=== PATIENT | male | born 1955 | race Caucasian/White ===

== ENCOUNTER 2018-12-22 17:14 | Inpatient (IN) | payer OTHER ==
[~2018-12-22] VITALS: Ht 167.6 cm; Wt 86.2 kg
[~2018-12-22 17:14] MED LIST: ASPI-903 PO; ATOR-2 PO; DONE5TAB7 PO; ETOMIDATE 20 MG INJ ONE; METO-429 PO; SUCCINYLCHOLINE CHLORIDE 100 MG/5 ML SYG IV ONE
--- NOTE | 2018-12-22 17:29 | ERD ---
ER Documentation Chief Complaint Chief Complaint pt c/o grimes and became unresponsive en route HPI This is a 63-year-old male with an unknown past medical history. The patient was at his friend's house when he complained of a sudden onset of a severe headache. He said he was not feeling well and had an episode of nonbloody nonbilious emesis. The headache worsened. The headache was diffuse. He denied any head trauma. His friend phone 911 as he stated the patient became very diaphoretic and the headache continued to worsen. When EMS arrived they stated the patient was grabbing his head. They began to transfer the patient to [facility]. The patient continued to complain of a headache. When EMS arrived to the parking lot at [facility] the patient had now developed pinpoint pupils. He became unresponsive with snoring respirations. They had performed an Accu-Chek which was 144. The patient had denied illicit drug use or ethanol use. The patient just returned from a trip to [facility] 48 hours prior to arrival. His friend did state he knows the patient had a coronary artery bypass surgery roughly 1 year ago and takes aspirin on a daily basis but does not know any of his other past history or medications ROS All systems reviewed and are negative except as per history of present illness. Medications Home Meds Unable to Obtain Active Prescriptions or Reported Meds Allergies Allergies: Coded Allergies: Unknown: Unable to obtain (Unverified , 12/22/18) Physical Exam Vitals Vital Signs Date Temp Pulse Resp B/P (MAP) Pulse Ox O2 O2 Flow FiO2 Time Delivery Rate 12/22/18 70 16 139/97 100 Mechanical 17:54 (111) Ventilator 12/22/18 65 28 100 100 17:46 12/22/18 73 18 235/125 98 17:20 (161) Physical Exam Constitutional:Well-developed. Well-nourished. HEENT:Normocephalic. Atraumatic.Pupils were pinpoint. Moist mucous membranes.No tonsillar exudates. Ears versus dentures that appear to be in the upper teeth that were not able to be removed. Pooling of secretions within the oropharynx Neck: No nuchal rigidity. No lymphadenopathy. No posterior cervical spine tenderness or step-offs. Bilateral JVD with no neck or facial swelling. Respiratory: Snoring respirations with symmetrical breath sounds heard b ilaterally. No wheezing no rhonchi no rales. Cardiovascular: Regular rate regular rhythm.No murmurs. No rubs were appreciated.S1, S2 normal. Distal pulses are palpable 2+ bilaterally. Midsternal scar from previous coronary bypass graft. GI: Abdomen was soft. Nontender. Non Distended. No pulsatile abdominal masses or bruits. No rebound. No guarding. Bowel sounds were present and normal. Muscle skeletal: Patient had no active or passive movement of his upper or lower extremities with flaccid paralysis Skin: Diaphoresis. No petechia, no purpura. No lesions on the palms or the soles of the feet. No maculopapular rash. NEURO: Patient did not withdraw to pain. Patient did not open eyes sponta neously. No doll's eyes present. GCS 3 Result Diagram: 12/22/18 1730 12/22/18 1730 Results 24 hrs Laboratory Tests Test 12/22/18 17:18 12/22/18 17:30 12/22/18 17:55 Bedside Glucose 144 mg/dL White Blood Count 6.1 10^3/ul Red Blood Count 5.53 10^6/ul Hemoglobin 13.9 g/dl Hematocrit 45.3 % Mean Corpuscular Volume 81.9 fl Mean Corpuscular Hemoglobin 25.1 pg Mean Corpuscular 30.7 g/dl Hemoglobin Concent Red Cell Distribution Width 16.4 % Platelet Count 168 10^3/UL Mean Platelet Volume 10.2 fl Immature Granulocytes % 0.300 % Neutrophils % 61.7 % Lymphocytes % 26.9 % Monocytes % 7.8 % Eosinophils % 2.8 % Basophils % 0.5 % Nucleated Red Blood Cells % 0.0 /100WBC Immature Granulocytes # 0.020 10^3/ul Neutrophils # 3.7 10^3/ul Lymphocytes # 1.6 10^3/ul Monocytes # 0.5 10^3/ul Eosinophils # 0.2 10^3/ul Basophils # 0.0 10^3/ul Nucleated Red Blood Cells # 0.0 10^3/ul Prothrombin Time 12.6 Sec Prothrombin Time Ratio 1.0 INR International 0.93 Normalized Ratio Activated Partial Thromboplast 25.2 Sec Time Sodium Level 141 mmol/L Potassium Level 3.4 mmol/L Chloride Level 105 mmol/L Carbon Dioxide Level 26 mmol/L Anion Gap 10 Blood Urea Nitrogen 15 mg/dl Creatinine 0.98 mg/dl Est Glomerular Filtrat > 60 mL/min Rate mL/min Glucose Level 159 mg/dl Hemoglobin A1c 5.4 % Calcium Level 9.6 mg/dl Total Bilirubin 0.7 mg/dl Direct Bilirubin 0.00 mg/dl Indirect Bilirubin 0.7 mg/dl Aspartate Amino 42 IU/L Transf (AST/SGOT) Alanine 30 IU/L Aminotransferase (ALT/SGPT) Alkaline Phosphatase 94 IU/L Creatine Kinase 372 IU/L Creatine Kinase Index Pending Creatinine Kinase MB (Mass) Pending Troponin I Pending Total Protein 8.5 g/dl Albumin 4.3 g/dl Globulin 4.20 g/dl Albumin/Globulin Ratio 1.02 Triglycerides Level 139 mg/dl Cholesterol Level 146 mg/dl LDL Cholesterol, Calculated 72 mg/dl HDL Cholesterol 46 mg/dl Cholesterol/HDL Ratio 3.1 RATIO Salicylates Level < 1.0 mg/dl Acetaminophen Level < 10.0 ug/ml Ethyl Alcohol Level < 10.0 mg/dl Urine Color YELLOW Urine Clarity CLEAR Urine pH 8.0 Urine Specific [place] 1.010 Urine Ketones NEGATIVE mg/dL Urine Nitrite NEGATIVE mg/dL Urine Bilirubin NEGATIVE mg/dL Urine Urobilinogen NEGATIVE mg/dL Urine Leukocyte Esterase NEGATIVE Johanna/ul Urine Microscopic RBC 18 /HPF Urine Microscopic WBC 1 /HPF Urine Mucus FEW /HPF Urine Hemoglobin 1+ mg/dL Urine Glucose NEGATIVE mg/dL Urine Total Protein 2+ mg/dl Current Medications Medications Dose Sig/Nicole Start Time Status Last (Trade) Ordered Route PRN Stop Time Admin Dose Reason Admin Labetalol 20 mg Q20M PRN 12/22/18 12/22/18 HCl IV ELEVATED 17:30 17:44 (Labetalol) BLOOD PRESSURE Etomidate 20 mg ONCE ONCE 12/22/18 DC 12/22/18 (Amidate) IV 17:30 17:37 12/22/18 17:31 100 mg ONCE ONCE 12/22/18 DC 12/22/18 Succinylcholi IV 17:30 17:37 ne Chloride 12/22/18 17:31 (Anectine Syringe) Naloxone 2 mg ONCE ONCE 12/22/18 DC 12/22/18 HCl IV 17:30 17:37 (Narcan) 12/22/18 17:31 Nicardipine 200 ml @ ONCE STAT 12/22/18 12/22/18 HCl 50 mls/hr IV 17:32 17:47 12/22/18 21:31 Sodium 100 ml @ ud STK-MED 12/22/18 DC Chloride ONCE .ROUTE 18:02 12/22/18 18:03 Iohexol 100 ml @ ud STK-MED 12/22/18 DC ONCE .ROUTE 18:02 12/22/18 18:03 Procedures/MDM The patient presented to the emergency department with an acute single headache that presented within hours of onset my differential diagnosis included but was not limited to meningitis, SAH, intracerebral hemorrhage, hypertensive encephalopathy, cranial artery dissection, cerebral venous sinus thrombosis, traumatic, acute sinusitis. The patient has no ocular symptoms to suggest temp oral neuritis, acute narrow-angle glaucoma or pituitary apoplexy. The patient did not appear to have a toxic or metabolic etiology such as fever, hypoglycemia, high-altitude disease or carbon monoxide poisoning. When patient arrived to the emergency department he was no longer protecting his airway. The patient appeared to be expensing hypertensive emergency and immediately was placed on licensed retail supervisor continuous pulse oximetry and IV access had been established by nursing staff. The patient was clenching his teeth and therefore required RSI intervention to secure his airway. He was giv en 20 mg of etomidate followed by 100 mg of succinylcholine. A 7.50 endotracheal tube was seen in past going through the cords by myself. The tube was secured at the lip line of 23 cm with equal symmetrical breath sounds are bilaterally, condensation seen within the tube in good capnometry change x6. A code stroke was called as I was concerned with an intracerebral hemorrhage due to his physical exam findings. He also had pinpoint pupils given Narcan when he initially arrived with no changes in his clinical condition therefore unlikely the result of an opiate overdose intoxication. The patient's blood glucose was within normal limits. CT scan of the head was immediately obtained and the patient had a large right cerebellar hemorrhage that extended into the ventricles. The posterior fossa had a 4.6 x 3.2 cm hemorrhage. There was a total volume of 48 cc that was causing occlusion of the fourth ventricle with extension into the brainstem inferiorly. There is also extension of the hemorrhage into the third ventricle. There is no midline shift or acute extra- articular collection that was noted. The patient was immediately started on labetalol and Cardene to improve his blood pressure as when he arrived his blood pressure was 235/135 mmHg. The patient's neighbor and friend who called 911 was present at the hospital and family has been called. Consult was placed to the neurosurgeon Dr. Bryan. 12 Lead EKG tracing ordered and reviewed by myself showed: Normal sinus rhythm of 73 bpm and no arrhythmia. NE interval normal. QRS duration widened at 122 ms with left ventricular hypertrophy. No ST segment elevation No ST segment depression. No changes consistent with acute ischemia. Chest radiograph ordered reviewed by myself the radiologist indicate the followin. Endotracheal tube in satisfactory position. 2. Atherosclerosis. 3. Previous median sternotomy. 4. Otherwise unremarkable chest radiograph. The patient's son has now arrived. He indicates that the patient's and daughter in [place] they have been there visiting family. He is unaware of the patient's medications but is going to try and contact the in order to figure out if the patient takes any other anticoagulants. I have ordered a platelet function assay and a type and screen. Dr. Bryan has been consulted and will be phoning the OR to take the patient for immediate surgical decompression. Critical Care: Time: 95 minutes Treatments/Evaluations: Close monitoring and treatment of unstable vital signs, cardiorespiratory, and neurologic status, while maintaining tight balance of fluid, respiratory, and cardiac interventions. Time does not include performing any of the above billable procedures. Departure Diagnosis: Primary Impression: Hypertensive emergency without congestive heart failure Additional Impression: Nontraumatic cerebellar hemorrhage Laterality: right Qualified Codes: I61.4 - Nontraumatic intracerebral hemorrhage in cerebellum Condition: Serious WAQAS MOODY MD Dec 22, 2018 17:29
[2018-12-22] MEDS ORDERED: NALOXONE 2 MG SYG IV ONE (17:30)
[2018-12-22] MEDS ORDERED: LABETALOL HCL 20MG INJ IV PRN (17:30)
[2018-12-22] MEDS ORDERED: SUCCINYLCHOLINE CHLORIDE 100 MG/5 ML SYG IV ONE (17:30)
[2018-12-22] MEDS ORDERED: ETOMIDATE 20 MG INJ IV ONE (17:30)
[2018-12-22] MEDS ORDERED: niCARdipine-NS 0.1MG/ML DRIP 200 ML IV STA (17:32)
[2018-12-22] MEDS ORDERED: IOHEXOL 100 ML ONE (18:02)
[2018-12-22] MEDS ORDERED: SOD CHLORIDE 0.9% 100 ML ONE (18:02)
[2018-12-22] MEDS ORDERED: GELATIN SIZE 100 SPONGE ONE (18:50)
[2018-12-22] MEDS ORDERED: THROMBIN 5000 UNIT (RECOTHROM) VIAL ONE ×2 (18:50→21:30)
[2018-12-22] MEDS ORDERED: LIDOCAINE 1%/EPI 30 ML INJ ONE (18:51)
[2018-12-22] MEDS ORDERED: BACITRACIN/POLYMYXIN 28.35 GM OINT TOP ONE (18:51)
[2018-12-22] MEDS ORDERED: EPHEDrine 25 MG/5 ML SYG ONE (19:00)
[2018-12-22] MEDS ORDERED: SOD CHLORIDE 0.9% 1,000 ML IV STA (19:09)
[2018-12-22] MEDS ORDERED: ROCURONIUM 50 MG INJ ONE (19:50)
[2018-12-22] MEDS ORDERED: LIDOCAINE 1%/EPI (1:100,000) (MDV) 20 ML INJ ONE (20:14)
[2018-12-22] MEDS ORDERED: GELATIN SIZE 100 SPONGE TOP ONE (20:14)
[2018-12-22] MEDS ORDERED: BACITRACIN 50000 UNITS INJ IRR ONE (20:14)
--- NOTE | 2018-12-22 20:21 | PREAC ---
Date/Time of Note Date/Time of Note DATE: 12/22/18 TIME: 20:18 Anesthesia Eval and Record Evaluation Time Pre-Procedure Interview DATE: 12/22/18 TIME: 18:55 Age 63 Sex male NPO: 8 hrs Preoperative diagnosis INTRACRANIAL BLEED Planned procedure CRANIOTOMY, EVACUATION OF HEMATOMA, VENTRICULOSTOMY Past Medical History Past Medical History: Includes Cardio: HTN, CAD Surgery & Anesthesia Issues No known issue Meds Anticoagulation: No Beta Antelmo within 24 hr: Yes Unable to Obtain Active Prescriptions or Reported Meds Current Medications Labetalol HCl (Labetalol) 20 mg Q20M PRN IV ELEVATED BLOOD PRESSURE Last administered on 12/22/18at 17:44; Admin Dose 20 MG; Start 12/22/18 at 17:30 Nicardipine HCl 200 ml @ 50 mls/hr ONCE STAT IV Last administered on 12/22/18at 17:47; Admin Dose 50 MLS/HR; Start 12/22/18 at 17:32; Stop 12/22/18 at 21:31 Meds reviewed: Yes Allergies Coded Allergies: Unknown: Unable to obtain (Unverified , 12/22/18) Allergies Reviewed: Yes Labs/Studies Labs Reviewed: Reviewed by anesthesiologist Result Diagram: 12/22/18 1730 12/22/18 1730 Laboratory Tests 12/22/18 17:30 Blood Bank Test 12/22/18 18:04 Antibody Screen NEGATIVE Blood Type A POSITIVE test: N/A Studies: ECG, CXR Pre-procedure Exam Last vitals Vital Signs Date Temp Pulse Resp B/P (MAP) Pulse Ox O2 O2 Flow FiO2 Time Delivery Rate 12/22/18 47 22 63/45 (51) 100 Mechanical 19:15 Ventilator 12/22/18 100 17:46 Airway: Adequate mouth opening, Adequate thyromental dist Mallampati: Mallampati II Teeth: Normal Lung: Normal Heart: Normal ASA Physical Status ASA physical status: 4 Emergency: E Planned Anesthetic General/MAC: ETT Planned Pain Management Parenteral pain med Pre-operative Attestations Prior to commencing anesthesia and surgery, the patient was re-evaluated, there was verification of: *The patient's identity *The results of appropriate recent lab work and preoperative vital signs *The above evaluation not changing prior to induction *Anesthetic plan, risk benefits, alternative and complications discussed with patient/family; questions answered; patient/family understands, accepts and wishes to proceed. MALLORY HOLT Dec 22, 2018 20:21
[2018-12-22] MEDS ORDERED: HYDROGEN PEROXIDE 118 ML ONE (21:41)
[2018-12-22] MEDS ORDERED: ONDANSETRON 4 MG INJ IV PRN (23:00)
[2018-12-22] MEDS ORDERED: ALBUTEROL HFA 8 GM INHALER INH PRN (23:00)
[2018-12-22] MEDS ORDERED: PROPOFOL 100 ML IV SCH (23:00)
[2018-12-22] MEDS ORDERED: IPRATROPIUM (HFA) 12.9 GM INHALER INH PRN (23:00)
--- NOTE | 2018-12-22 23:11 | CONS ---
DATE OF ADMISSION: 12/22/2018 DATE OF CONSULTATION: 12/22/2018 HISTORY OF PRESENT ILLNESS: The patient is a 63-year-old male with a history of coronary artery dise ase, status post CABG, who was brought to the ER by paramedics. When he was at a friend's house he c omplained of the worst headache of his life. The patient's friend called 911. The patient came to [facility] ER at which point he became less responsive and was emergently intubated. The patient apparently denied any illicit drug use or alcohol use. REVIEW OF SYSTEMS: Unable to obtain secondary to neurologic condition. PAST MEDICAL HISTORY: Limited, obtained from family but has history of coronary artery disease and h ypertension and hypercholesterolemia. SOCIAL HISTORY: Denies alcohol and drug abuse. FAMILY HISTORY: No reported history of inherited bleeding disorders. PHYSICAL EXAMINATION: VITAL SIGNS: The patient's pulse 73, respirations 18, blood pressure initially was 135/125 but had b een brought down with nicardipine at 98/40. The patient was also bradycardic at 42. The patient has been intubated with succinylcholine and etomidate though it has been almost hour since the patient h ad been treated when he was examined. HEAD AND NECK: Patient is normocephalic, atraumatic. He is intubated. CARDIAC: Sinus bradycardia. CHEST: Clear to auscultation. The patient has a midline thoracotomy scar. ABDOMEN: Nontender, nondistended, soft. EXTREMITIES: No clubbing, cyanosis, or edema. NEUROLOGIC: Patient's eyes are closed. He is unresponsive, does not open his eyes to any noxious st imuli or voice. His pupils are pinpoint. He does not appear to have a corneal or oculocephalic refl ex. He may have a gag. The patient withdraws the lower extremities and has positive Babinski's. Up per extremities, I do not note movement with noxious stimuli. LABORATORY DATA: The patient's white count 6.1, hemoglobin 13.9, platelets 168. His glucose was 144 . Coags, I spoke to the lab, and they reported to be within normal limits. REVIEW OF RADIOGRAPHIC RESULTS: The patient had a CT scan of the brain; I reviewed this study as wel l as radiologist's result. The radiologist states there is a 4.6 x 3.2 posterior fossa right cerebel lar hemorrhage measuring 48 mL, this causes occlusion of fourth ventricle; there may be extension of the brainstem inferiorly, per the radiologist, though I believe this may simply be compression. Ther e is also extension of the hemorrhage into the ventricles and frontal horns. There is no midline trino ft or acute extraaxial collections. The patient also had a CT angiogram; I reviewed the study, did n ot see an evidence of AVM or aneurysm and I was told by Dr. Forde the radiologist had stated that there was no clear vascular abnormality. ASSESSMENT AND PLAN: A 63-year-old male with right cerebellar hematoma and brainstem compression hyd rocephalus. I discussed patient's signs, symptoms, physical examination, and radiographic findings w ith the patient's family. The patient has 2 sons were present; however, the patient's is [place]. I explained the nature of the patient's condition. I explained the patient has a very bad blee d, he likely has neurologic deficits that may or may not be reversible, intervention by craniectomy a nd ventriculostomy may give the patient the best chance to allow for recovery, though there is no gua rantee the patient will necessary recover and will still likely have significant neurologic deficits, though he may find to have acceptable quality of life. I also explained the patient has a greater c blessing of mortality if he does not have surgery than if he has surgery. I explained there is no guara ntee the surgery will benefit the patient, given the patient's condition already. I discussed the lo ngterm recovery, including potential tracheostomy, gastrostomy and retirement care. The patient has on ly been taking baby aspirin, and he will get platelets if necessary. Given the patient's neurologic condition, I expressed the emergent nature of this issue if the patient is to have some benefit from surgical intervention. The patient's family is currently making a decision regarding surgical treatm ent. The patient will likely go the OR for suboccipital craniectomy and evacuation of hematoma. Dictated By: JOVANI MCGARRY MD, LG/ROQUE Conf#: [id number] DID#: [id number] CC: TRISTON HANNA MD;*EndCC*
[2018-12-22] MEDS ORDERED: LABETALOL HCL 20MG INJ ONE (23:48)
[2018-12-22] MEDS ORDERED: FENTAnyl 50 MCG/ML VIAL ONE (23:48)
[2018-12-22] MEDS ORDERED: CEFAZOLIN 1 GM INJ ONE (23:49)
[2018-12-23] VITALS (105 sets, daily range): BP systolic 109–178; BP diastolic 54–99; PULSE 48–95; RESP 16–28; Ht 167.6 cm; Wt 86.2 kg
--- NOTE | 2018-12-23 00:07 | OPR ---
Date/Time of Note Date/Time of Note DATE: 12/23/18 TIME: 00:03 Operative Report Preoperative Diagnosis 1. right cerebellar hematoma Postoperative Diagnosis 1. right cerebellar hematoma Operation/Procedure Performed 1. suboccipital craniectomy for evacuation of hematoma. 2. <5 cm craniectomy 3. microscope. 4. right frontal ventriculostomy. Surgeon see signature line Deal Architect none Anesthesia Type: general Anesthesiologist: MALLORY HOLT Estimated Blood Loss: 150 - 200 ml's Transfusion none Specimen hematoma Grafts/Implants Duragen, Duralsel, titanium mesh Complications none Pt Condition Post Procedure: stable Disposition: PACU Indications hematoma Procedure Description see dictation JOVANI MCGARRY MD Dec 23, 2018 00:07
--- NOTE | 2018-12-23 00:10 | PAC ---
Date/Time of Note Date/Time of Note DATE: 12/23/18 TIME: 00:09 Post-Anesthesia Notes Post-Anesthesia Note Last documented vital signs Vital Signs Date Temp Pulse Resp B/P (MAP) Pulse Ox O2 O2 Flow FiO2 Time Delivery Rate 12/22/18 98 67 16 156/89 100 Mechanical 2400 Ventilator 12/22/18 100 17:46 Activity: WNL Respiratory function: WNL Cardiovascular function: WNL Mental status: Baseline Pain reasonably controlled: Yes Hydration appropriate: Yes Nausea/Vomiting absent: Yes Comments REMAINS INTUBATED POST OP, MALLORY RAY Dec 23, 2018 00:10
[2018-12-23] MEDS ORDERED: morphine 10 MG INJ IV PRN (00:30)
[2018-12-23] MEDS ORDERED: hydrALAzine 20 MG INJ IV PRN (00:30)
[2018-12-23] MEDS ORDERED: MEPERIDINE 25 MG INJ IV PRN (00:30)
[2018-12-23] MEDS ORDERED: morphine 2 MG INJ IV PRN ×3 (00:30→09:30)
[2018-12-23] MEDS ORDERED: EPHEDrine 25 MG/5 ML SYG IV PRN (00:30)
[2018-12-23] MEDS ORDERED: LABETALOL HCL 20MG INJ IV PRN (00:30)
[2018-12-23] MEDS ORDERED: DIPHENHYDRAMINE 50 MG INJ IV PRN ×2 (00:30)
[2018-12-23] MEDS ORDERED: MIDAZOLAM 1 MG/ML 2 ML INJ IV PRN (00:30)
[2018-12-23] MEDS: niCARdipine-NS 0.1MG/ML DRIP 200 ML IV SCH ×9 (00:37→23:25)
[2018-12-23] MEDS: CEFAZOLIN 2 GM/50 ML (PMX) 50 ML IVPB SCH ×3 (01:48→16:23)
[2018-12-23] MEDS: PANTOPRAZOLE 40 MG INJ IV SCH (06:22)
--- NOTE | 2018-12-23 06:34 | HP ---
Date/Time of Note Date/Time of Note DATE: 12/23/18 TIME: 06:23 Assessment/Plan VTE Prophylaxis Pharmacological prophylaxis: heparin Lines/Catheters IV Catheter Type (from Nrsg): Peripheral IV Urinary Cath still in place: Yes Reason Cath still needed: terminal illness/intractable pain Assessment/Plan Assessment/Plan 1. Large right cerebellar hemorrhage: status post craniectomy with evacuation of hematoma and right frontal ventriculostomy placement -Tight BP control, with the parameters per neurosurgery 2. Hypertensive emergency: BP better controlled -Patient presented with a blood pressure of 235/125 -See #1 3. Vent dependent respiratory failure: Secondary to #1 -Continue vent support -Pulmonary to manage 4. History of CAD with CABG -Hold aspirin -Consider cardiology consult to follow along 5. ?Dyslipidemia: Hold statin for now 6. ?Dementia: Hold the donepezil for now Result Diagram: 12/23/18 0428 12/23/18 0428 Results 24hrs Laboratory Tests Test 12/22/18 17:18 12/22/18 17:30 12/22/18 17:55 12/22/18 18:04 Bedside Glucose 144 White Blood Count 6.1 Red Blood Count 5.53 Hemoglobin 13.9 L Hematocrit 45.3 Mean Corpuscular 81.9 L Volume Mean Corpuscular 25.1 L Hemoglobin Mean Corpuscular 30.7 L Hemoglobin Concen t Red Cell 16.4 H Distribution Width Platelet Count 168 Mean Platelet 10.2 Volume Immature 0.300 Granulocytes % Neutrophils % 61.7 Lymphocytes % 26.9 Monocytes % 7.8 Eosinophils % 2.8 Basophils % 0.5 Nucleated Red 0.0 Blood Cells % Immature 0.020 Granulocytes # Neutrophils # 3.7 Lymphocytes # 1.6 Monocytes # 0.5 Eosinophils # 0.2 Basophils # 0.0 Nucleated Red 0.0 Blood Cells # Prothrombin Time 12.6 Prothrombin Time 1.0 Ratio INR International 0.93 Normalized Ratio Activated 25.2 Partial Thrombopl ast Time Sodium Level 141 Potassium Level 3.4 L Chloride Level 105 Carbon Dioxide 26 Level Anion Gap 10 Blood Urea 15 Nitrogen Creatinine 0.98 Est Glomerular > 60 Filtrat Rate mL/min Glucose Level 159 Hemoglobin A1c 5.4 Calcium Level 9.6 Total Bilirubin 0.7 Direct Bilirubin 0.00 Indirect 0.7 Bilirubin Aspartate Amino 42 Transf (AST/SGOT) Alanine 30 Aminotransferase (ALT/SGPT) Alkaline 94 Phosphatase Creatine Kinase 372 H Creatine Kinase 2.8 Index Creatinine Kinase 10.50 H MB (Mass) Troponin I 0.039 Total Protein 8.5 H Albumin 4.3 Globulin 4.20 H Albumin/Globulin 1.02 Ratio Triglycerides 139 Level Cholesterol Level 146 LDL Cholesterol, 72 Calculated HDL Cholesterol 46 Cholesterol/HDL 3.1 Ratio Salicylates Level < 1.0 L Acetaminophen < 10.0 L Level Ethyl Alcohol < 10.0 H Level Urine Color YELLOW Urine Clarity CLEAR Urine pH 8.0 Urine Specific 1.010 [place] Urine Ketones NEGATIVE Urine Nitrite NEGATIVE Urine Bilirubin NEGATIVE Urine NEGATIVE Urobilinogen Urine Leukocyte NEGATIVE Esterase Urine Microscopic 18 H RBC Urine Microscopic 1 WBC Urine Mucus FEW A Urine Hemoglobin 1+ H Urine Glucose NEGATIVE Urine Total 2+ H Protein Urine Opiates Negative Screen Urine Negative Barbiturates Urine Negative Amphetamines Screen Urine Negative Benzodiazepines Screen Urine Cocaine Negative Screen Urine Negative Cannabinoids Platelet 138 Func Collagen/Epi nephrine Platelet Function Collagen/ADP Test 12/23/18 02:00 12/23/18 04:28 Blood Gas Blood arterial Specimen Source Arterial Blood 12/23/2018 2:15:2 Date Drawn 9 AM Arterial Blood pH 7.380 (Temp corrected) Arterial Blood 43.3 pCO2 (Temp correct) Arterial Blood 168.5 H pO2 (Temp corrected) Arterial Blood 25.0 HCO3 Arterial Blood -0.2 Base Excess Arterial Blood 99.1 H Oxygen Saturation Say Test N/A Arterial Blood A-Line Gas Puncture Site Arterial 0.6 Blood Carboxyhemo globin Arterial Blood 0.2 Methemoglobin Blood Gas A-a O2 139.3 H Differential Oxyhemoglobin 98.3 Percent Blood Gas 37.0 Temperature Blood Gas 16.0 Respiration Rate Blood Gas Actual 20 Respiration Rate Blood Gas VENT - AC Modality FiO2 50.0 Blood Gas Tidal 500.0 Volume Blood Gas Low 5.0 PEEP Setting Blood Gas Kwame AUGUSTE RN Critical Value Read Back Blood Gas KB Notified Whom Blood Gas 12/23/2018 2:29:1 Notified Time 7 AM White Blood Count 9.6 # Red Blood Count 4.80 Hemoglobin 12.2 L Hematocrit 39.9 L Mean Corpuscular 83.1 Volume Mean Corpuscular 25.4 L Hemoglobin Mean Corpuscular 30.6 L Hemoglobin Concen t Red Cell 16.8 H Distribution Width Platelet Count 159 Mean Platelet 10.5 H Volume Immature 0.300 Granulocytes % Neutrophils % 84.4 H Lymphocytes % 8.9 L Monocytes % 6.2 Eosinophils % 0.0 Basophils % 0.2 Nucleated Red 0.0 Blood Cells % Immature 0.030 Granulocytes # Neutrophils # 8.1 H Lymphocytes # 0.9 Monocytes # 0.6 Eosinophils # 0.0 Basophils # 0.0 Nucleated Red 0.0 Blood Cells # Sodium Level 142 Potassium Level 3.6 Chloride Level 104 Carbon Dioxide 28 Level Anion Gap 10 Blood Urea 16 Nitrogen Creatinine 1.01 Est Glomerular > 60 Filtrat Rate mL/min Glucose Level 184 Calcium Level 8.9 Phosphorus Level 4.2 Magnesium Level 1.8 HPI/ROS Admit Date/Time Admit Date/Time Dec 22, 2018 at 23:55 Hx of Present Illness Patient is a 63-year-old male with a history of hypertension, dyslipidemia, CAD with CABG who presented to ER complaining of severe diffuse headache that started while he was at the friend's house. Note that information is gathered from chart review and from the ER physician. When he presented to ER, he became unresponsive requiring intubation. Head CT shows Large right cerebellar hemorrhage extending into the ventricles. Initial blood pressure was 235/125. Patient takes aspirin. Patient was taken to the OR emergently and underwent craniectomy with evacuation of hematoma and right frontal ventriculostomy. PMH/Family/Social Past Medical History Past Surgical Hx: other (see HPI) Family History Significant Family History: no pertinent family hx Social History Alcohol Use: none Smoking Status: Never smoker Drug Use: none Exam Constitutional: No acute distress Head: normocephalic, atraumatic Eyes: EOMI, PERRL Respiratory: no distress Cardiovascular: regular rate and rhythm Gastrointestinal: soft Extremities: normal pulses Medications Current Medications Labetalol HCl (Labetalol) 20 mg Q20M PRN IV ELEVATED BLOOD PRESSURE Last ad ministered on 12/22/18at 17:44; Admin Dose 20 MG; Start 12/22/18 at 17:30 Ondansetron HCl (Zofran Inj) 4 mg Q6H PRN IV NAUSEA AND/OR VOMITING Last administered on 12/23/18at 05:15; Admin Dose 4 MG; Start 12/22/18 at 23:00 Albuterol (Ventolin Hfa) 4 puff Q2H RESP THERAPY PRN INH SHORTNESS OF BREATH; Start 12/22/18 at 23:00 Ipratropium [place] (Atrovent Hfa) 4 puff Q2H RESP THERAPY PRN INH SHORTNESS OF BREATH; Start 12/22/18 at 23:00 Acetaminophen (Tylenol Supp) 650 mg Q4H PRN IN PAIN LEVEL 1-3 OR FEVER; Start 12/22/18 at 23:00 Pantoprazole (Protonix Iv) 40 mg DAILY@06 IV Last administered on 12/23/18at 06:22; Admin Dose 40 MG; Start 12/23/18 at 06:00 Propofol 100 ml @ 2.387 mls/ hr PER PROTOCOL IV ; Start 12/22/18 at 23:00 Cefazolin Sodium/ Dextrose 50 ml @ 100 mls/hr Q8H IVPB Last administered on 12/23/18at 01:48; Admin Dose 100 MLS/HR; Start 12/23/18 at 00:00; Stop 12/23/18 at 23:59 Diphenhydramine HCl (Benadryl) 25 mg Q6H PRN IV ITCHING; Start 12/23/18 at 00:00 Nicardipine HCl 200 ml @ 50 mls/hr TITRATE IV Last administered on 12/23/18at 05:15; Admin Dose 100 MLS/HR; Start 12/23/18 at 00:30 Coded Allergies: Unknown: Unable to obtain (Unverified , 12/22/18) Social History Smoking Status: Current every day smoker Exam/Review of Systems Vital Signs Vitals Vital Signs Date Temp Pulse Resp B/P (MAP) Pulse Ox O2 O2 Flow FiO2 Time Delivery Rate 12/23/18 88 22 146/76 99 05:15 (99) 12/23/18 40 05:04 12/23/18 Mechanical 05:00 Ventilator 12/23/18 96.9 04:00 Intake and Output 12/22/18 12/22/18 12/23/18 1515:00 23:00 07:00 IntakeIntake Total 1802 ml OutputOutput Total 35 ml 1244 ml BalanceBalance -35 ml 558 ml TRISTON BREAUX MD Dec 23, 2018 06:33
--- NOTE | 2018-12-23 11:37 | PN ---
Date/Time of Note Date/Time of Note DATE: 12/23/18 TIME: 11:33 Assessment/Plan Lines/Catheters IV Catheter Type (from Rust): Peripheral IV Chaidez in Place (from Rust): Yes Assessment/Plan Chief Complaint/Hosp Course POD # 1 s/p suboccipital craniotomy for evacuation of hematoma/ EVD. Patient slightly improved neurologically but exam still poor. CT shows improvement but some bleeding into the resection cavity though not compressive. Still significant IVH in 4th and 3rd but EVD draining. Cont. EVD, medical supportive care. D/W family prognosis. repeat CT in tomorrow AM. Subjective 24 Hr Interval Summary Subjective hx not possible: pt non-verbal Exam/Review of Systems Vital Signs Vitals Vital Signs Date Temp Pulse Resp B/P (MAP) Pulse Ox O2 O2 Flow FiO2 Time Delivery Rate 12/23/18 82 22 99 40 11:03 12/23/18 99.0 130/78 Mechanical 08:00 (95) Ventilator Intake and Output 12/22/18 12/22/18 12/23/18 1515:00 23:00 07:00 IntakeIntake Total 1902 ml OutputOutput Total 35 ml 1568 ml BalanceBalance -35 ml 334 ml Exam Head: normocephalic, other (incision C/d/I, EVD in place.) Neurological: other (opens eyes to noxious stimuli. Does not follow commands. no UE movement, Lower extrmeities withdraw) Results Result Diagram: 12/23/18 0428 12/23/18 0428 JOVANI MCGARRY MD Dec 23, 2018 11:37
--- NOTE | 2018-12-23 12:38 | PN ---
Date/Time of Note Date/Time of Note DATE: 12/23/18 TIME: 12:36 Assessment/Plan VTE Prophylaxis SCD applied (from Nsg): Yes Pharmacological prophylaxis: NA/contraindicated Pharm contraindication: low risk/ambulating, bleeding Lines/Catheters IV Catheter Type (from Nrsg): Peripheral IV Assessment/Plan Hospital Course 1. Large right cerebellar hemorrhage: status post craniectomy with evacuation of hematoma and right frontal ventriculostomy placement -Tight BP control, with the parameters per neurosurgery 2. Hypertensive emergency: BP better controlled -Patient presented with a blood pressure of 235/125 -Cardizem drip 3. Vent dependent respiratory failure: Secondary to #1 -Continue vent support -Pulmonary to manage 4. History of CAD with CABG -Hold aspirin -Consider cardiology consult to follow along 5. Dyslipidemia: Hold statin for now 6. History of dementia: Hold the donepezil for now Prophylaxis: SCDs Result Diagram: 12/23/18 0428 12/23/18 0428 Results 24hrs Laboratory Tests Test 12/22/18 17:18 12/22/18 17:30 12/22/18 17:55 12/22/18 18:04 Bedside Glucose 144 White Blood 6.1 Count Red Blood Count 5.53 Hemoglobin 13.9 L Hematocrit 45.3 Mean Corpuscular 81.9 L Volume Mean Corpuscular 25.1 L Hemoglobin Mean Corpuscular 30.7 L Hemoglobin Mitali nt Red Cell 16.4 H Distribution Width Platelet Count 168 Mean Platelet 10.2 Volume Immature 0.300 Granulocytes % Neutrophils % 61.7 Lymphocytes % 26.9 Monocytes % 7.8 Eosinophils % 2.8 Basophils % 0.5 Nucleated Red 0.0 Blood Cells % Immature 0.020 Granulocytes # Neutrophils # 3.7 Lymphocytes # 1.6 Monocytes # 0.5 Eosinophils # 0.2 Basophils # 0.0 Nucleated Red 0.0 Blood Cells # Prothrombin Time 12.6 Prothrombin Time 1.0 Ratio INR 0.93 International Normalized Ratio Activated 25.2 Partial Thrombop last Time Sodium Level 141 Potassium Level 3.4 L Chloride Level 105 Carbon Dioxide 26 Level Anion Gap 10 Blood Urea 15 Nitrogen Creatinine 0.98 Est Glomerular > 60 Filtrat Rate mL/min Glucose Level 159 Hemoglobin A1c 5.4 Calcium Level 9.6 Total Bilirubin 0.7 Direct Bilirubin 0.00 Indirect 0.7 Bilirubin Aspartate Amino 42 Transf (AST/SGOT ) Alanine 30 Aminotransferase (ALT/SGPT) Alkaline 94 Phosphatase Creatine Kinase 372 H Creatine Kinase 2.8 Index Creatinine 10.50 H Kinase MB (Mass) Troponin I 0.039 Total Protein 8.5 H Albumin 4.3 Globulin 4.20 H Albumin/Globulin 1.02 Ratio Triglycerides 139 Level Cholesterol 146 Level LDL Cholesterol, 72 Calculated HDL Cholesterol 46 Cholesterol/HDL 3.1 Ratio Salicylates < 1.0 L Level Acetaminophen < 10.0 L Level Ethyl Alcohol < 10.0 H Level Urine Color YELLOW Urine Clarity CLEAR Urine pH 8.0 Urine Specific 1.010 [place] Urine Ketones NEGATIVE Urine Nitrite NEGATIVE Urine Bilirubin NEGATIVE Urine NEGATIVE Urobilinogen Urine Leukocyte NEGATIVE Esterase Urine 18 H Microscopic RBC Urine 1 Microscopic WBC Urine Mucus FEW A Urine Hemoglobin 1+ H Urine Glucose NEGATIVE Urine Total 2+ H Protein Urine Opiates Negative Screen Urine Negative Barbiturates Urine Negative Amphetamines Screen Urine Negative Benzodiazepines Screen Urine Cocaine Negative Screen Urine Negative Cannabinoids Platelet 138 Func Collagen/Ep inephrine Platelet Function Collagen/ADP Test 12/23/18 02:00 12/23/18 04:28 12/23/18 08:28 Blood Gas Blood arterial Blood arterial Specimen Source Arterial Blood 12/23/2018 2:15: 12/23/2018 8:50: Date Drawn 29 AM 59 AM Arterial Blood 7.380 7.440 pH (Temp corrected) Arterial Blood 43.3 38.0 pCO2 (Temp correct) Arterial Blood 168.5 H 146.3 H pO2 (Temp corrected) Arterial Blood 25.0 25.2 HCO3 Arterial Blood -0.2 1.3 Base Excess Arterial Blood 99.1 H Oxygen Saturatio n Say Test N/A N/A Arterial Blood A-Line A-Line Gas Puncture Site Arterial 0.6 Blood Carboxyhem oglobin Arterial Blood 0.2 Methemoglobin Blood Gas A-a O2 139.3 H 95.2 H Differential Oxyhemoglobin 98.3 Percent Blood Gas 37.0 37.0 Temperature Blood Gas 16.0 18.0 Respiration Rate Blood Gas Actual 20 19 Respiration Rate Blood Gas VENT - AC VENT - AC Modality FiO2 50.0 40.0 Blood Gas Tidal 500.0 500.0 Volume Blood Gas Low 5.0 5.0 PEEP Setting Blood Gas Kwame AUGUSTE RN Critical Value Read Back Blood Gas EVANS MATTHEW Notified Whom Blood Gas 12/23/2018 2:29: 12/23/2018 9:13: Notified Time 17 AM 52 AM White Blood 9.6 # Count Red Blood Count 4.80 Hemoglobin 12.2 L Hematocrit 39.9 L Mean Corpuscular 83.1 Volume Mean Corpuscular 25.4 L Hemoglobin Mean Corpuscular 30.6 L Hemoglobin Mitali nt Red Cell 16.8 H Distribution Width Platelet Count 159 Mean Platelet 10.5 H Volume Immature 0.300 Granulocytes % Neutrophils % 84.4 H Lymphocytes % 8.9 L Monocytes % 6.2 Eosinophils % 0.0 Basophils % 0.2 Nucleated Red 0.0 Blood Cells % Immature 0.030 Granulocytes # Neutrophils # 8.1 H Lymphocytes # 0.9 Monocytes # 0.6 Eosinophils # 0.0 Basophils # 0.0 Nucleated Red 0.0 Blood Cells # Sodium Level 142 Potassium Level 3.6 Chloride Level 104 Carbon Dioxide 28 Level Anion Gap 10 Blood Urea 16 Nitrogen Creatinine 1.01 Est Glomerular > 60 Filtrat Rate mL/min Glucose Level 184 Calcium Level 8.9 Phosphorus Level 4.2 Magnesium Level 1.8 Subjective 24 Hr Interval Summary Subjective hx not possible: pt non-verbal Exam/Review of Systems Exam Vitals Vital Signs Date Temp Pulse Resp B/P (MAP) Pulse Ox O2 O2 Flow FiO2 Time Delivery Rate 12/23/18 82 22 99 40 11:03 12/23/18 99.0 130/78 Mechanical 08:00 (95) Ventilator Intake and Output 12/22/18 12/22/18 12/23/18 1515:00 23:00 07:00 IntakeIntake Total 1902 ml OutputOutput Total 35 ml 1568 ml BalanceBalance -35 ml 334 ml Constitutional: non-verbal Respiratory: clear to auscultation Cardiovascular: regular rate and rhythm Gastrointestinal: soft; No distended Musculoskeletal: nl extremities to inspection Results Results 24hrs Laboratory Tests Test 12/22/18 17:18 12/22/18 17:30 12/22/18 17:55 12/22/18 18:04 Bedside Glucose 144 White Blood 6.1 Count Red Blood Count 5.53 Hemoglobin 13.9 L Hematocrit 45.3 Mean Corpuscular 81.9 L Volume Mean Corpuscular 25.1 L Hemoglobin Mean Corpuscular 30.7 L Hemoglobin Mitali nt Red Cell 16.4 H Distribution Width Platelet Count 168 Mean Platelet 10.2 Volume Immature 0.300 Granulocytes % Neutrophils % 61.7 Lymphocytes % 26.9 Monocytes % 7.8 Eosinophils % 2.8 Basophils % 0.5 Nucleated Red 0.0 Blood Cells % Immature 0.020 Granulocytes # Neutrophils # 3.7 Lymphocytes # 1.6 Monocytes # 0.5 Eosinophils # 0.2 Basophils # 0.0 Nucleated Red 0.0 Blood Cells # Prothrombin Time 12.6 Prothrombin Time 1.0 Ratio INR 0.93 International Normalized Ratio Activated 25.2 Partial Thrombop last Time Sodium Level 141 Potassium Level 3.4 L Chloride Level 105 Carbon Dioxide 26 Level Anion Gap 10 Blood Urea 15 Nitrogen Creatinine 0.98 Est Glomerular > 60 Filtrat Rate mL/min Glucose Level 159 Hemoglobin A1c 5.4 Calcium Level 9.6 Total Bilirubin 0.7 Direct Bilirubin 0.00 Indirect 0.7 Bilirubin Aspartate Amino 42 Transf (AST/SGOT ) Alanine 30 Aminotransferase (ALT/SGPT) Alkaline 94 Phosphatase Creatine Kinase 372 H Creatine Kinase 2.8 Index Creatinine 10.50 H Kinase MB (Mass) Troponin I 0.039 Total Protein 8.5 H Albumin 4.3 Globulin 4.20 H Albumin/Globulin 1.02 Ratio Triglycerides 139 Level Cholesterol 146 Level LDL Cholesterol, 72 Calculated HDL Cholesterol 46 Cholesterol/HDL 3.1 Ratio Salicylates < 1.0 L Level Acetaminophen < 10.0 L Level Ethyl Alcohol < 10.0 H Level Urine Color YELLOW Urine Clarity CLEAR Urine pH 8.0 Urine Specific 1.010 [place] Urine Ketones NEGATIVE Urine Nitrite NEGATIVE Urine Bilirubin NEGATIVE Urine NEGATIVE Urobilinogen Urine Leukocyte NEGATIVE Esterase Urine 18 H Microscopic RBC Urine 1 Microscopic WBC Urine Mucus FEW A Urine Hemoglobin 1+ H Urine Glucose NEGATIVE Urine Total 2+ H Protein Urine Opiates Negative Screen Urine Negative Barbiturates Urine Negative Amphetamines Screen Urine Negative Benzodiazepines Screen Urine Cocaine Negative Screen Urine Negative Cannabinoids Platelet 138 Func Collagen/Ep inephrine Platelet Function Collagen/ADP Test 12/23/18 02:00 12/23/18 04:28 12/23/18 08:28 Blood Gas Blood arterial Blood arterial Specimen Source Arterial Blood 12/23/2018 2:15: 12/23/2018 8:50: Date Drawn 29 AM 59 AM Arterial Blood 7.380 7.440 pH (Temp corrected) Arterial Blood 43.3 38.0 pCO2 (Temp correct) Arterial Blood 168.5 H 146.3 H pO2 (Temp corrected) Arterial Blood 25.0 25.2 HCO3 Arterial Blood -0.2 1.3 Base Excess Arterial Blood 99.1 H Oxygen Saturatio n Say Test N/A N/A Arterial Blood A-Line A-Line Gas Puncture Site Arterial 0.6 Blood Carboxyhem oglobin Arterial Blood 0.2 Methemoglobin Blood Gas A-a O2 139.3 H 95.2 H Differential Oxyhemoglobin 98.3 Percent Blood Gas 37.0 37.0 Temperature Blood Gas 16.0 18.0 Respiration Rate Blood Gas Actual 20 19 Respiration Rate Blood Gas VENT - AC VENT - AC Modality FiO2 50.0 40.0 Blood Gas Tidal 500.0 500.0 Volume Blood Gas Low 5.0 5.0 PEEP Setting Blood Gas K MOLINA CLARKE Critical Value Read Back Blood Gas EVANS MATTHEW Notified Whom Blood Gas 12/23/2018 2:29: 12/23/2018 9:13: Notified Time 17 AM 52 AM White Blood 9.6 # Count Red Blood Count 4.80 Hemoglobin 12.2 L Hematocrit 39.9 L Mean Corpuscular 83.1 Volume Mean Corpuscular 25.4 L Hemoglobin Mean Corpuscular 30.6 L Hemoglobin Mitali nt Red Cell 16.8 H Distribution Width Platelet Count 159 Mean Platelet 10.5 H Volume Immature 0.300 Granulocytes % Neutrophils % 84.4 H Lymphocytes % 8.9 L Monocytes % 6.2 Eosinophils % 0.0 Basophils % 0.2 Nucleated Red 0.0 Blood Cells % Immature 0.030 Granulocytes # Neutrophils # 8.1 H Lymphocytes # 0.9 Monocytes # 0.6 Eosinophils # 0.0 Basophils # 0.0 Nucleated Red 0.0 Blood Cells # Sodium Level 142 Potassium Level 3.6 Chloride Level 104 Carbon Dioxide 28 Level Anion Gap 10 Blood Urea 16 Nitrogen Creatinine 1.01 Est Glomerular > 60 Filtrat Rate mL/min Glucose Level 184 Calcium Level 8.9 Phosphorus Level 4.2 Magnesium Level 1.8 Medications Medication Current Medications Labetalol HCl (Labetalol) 20 mg Q20M PRN IV ELEVATED BLOOD PRESSURE Last administered on 12/22/18at 17:44; Admin Dose 20 MG; Start 12/22/18 at 17:30 Ondansetron HCl (Zofran Inj) 4 mg Q6H PRN IV NAUSEA AND/OR VOMITING Last admin istered on 12/23/18at 05:15; Admin Dose 4 MG; Start 12/22/18 at 23:00 Albuterol (Ventolin Hfa) 4 puff Q2H RESP THERAPY PRN INH SHORTNESS OF BREATH; Start 12/22/18 at 23:00 Ipratropium [place] (Atrovent Hfa) 4 puff Q2H RESP THERAPY PRN INH SHORTNESS OF BREATH; Start 12/22/18 at 23:00 Acetaminophen (Tylenol Supp) 650 mg Q4H PRN [place] PAIN LEVEL 1-3 OR FEVER; Start 12/22/18 at 23:00 Pantoprazole (Protonix Iv) 40 mg DAILY@06 IV Last administered on 12/23/18at 06:22; Admin Dose 40 MG; Start 12/23/18 at 06:00 Propofol 100 ml @ 2.387 mls/ hr PER PROTOCOL IV ; Start 12/22/18 at 23:00 Diphenhydramine HCl (Benadryl) 25 mg Q6H PRN IV ITCHING; Start 12/23/18 at 00:00 Morphine Sulfate (morphine) 2 mg Q2H PRN IV SEVERE PAIN LEVEL 7-10; Start 12/23/18 at 09:30 Cefazolin Sodium/ Dextrose 50 ml @ 100 mls/hr Q8H IVPB ; Start 12/23/18 at 16:00 Nicardipine HCl 200 ml @ 50 mls/hr TITRATE IV Last administered on 12/23/18at 12:14; Admin Dose 100 MLS/HR; Start 12/23/18 at 12:30 Levetiracetam 100 ml @ 400 mls/hr Q12 IVPB ; Start 12/23/18 at 13:00 STEPHANIE SALGUERO Dec 23, 2018 12:38
[2018-12-23] MEDS: LEVETIRACETAM 500 MG (PMX) 100 ML IVPB SCH ×2 (13:25→20:50)
--- NOTE | 2018-12-23 15:49 | CONS ---
DATE OF ADMISSION: 12/22/2018 DATE OF CONSULTATION: REASON FOR CONSULTATION: Ventilator management. Thank you, Dr. Breaux, for this consultation. HISTORY OF PRESENT ILLNESS: This is an unfortunate 63-year-old gentleman who was in his usual state of health until he had a severe headache, complaining it was the worst headache of his life and finn d 911. Upon arrival became less responsive, requiring emergent intubation and mechanical ventilation . CT of the brain was performed and demonstrated a cerebellar hematoma with brain stem compression a nd hydrocephalus. The patient underwent surgical intervention by Dr. Puma cardoza. Specificall y, suboccipital craniectomy and ventriculostomy placement. This morning he continues mechanical vent ilation and Cardene drip for hypertension. He opens his eyes to voice but currently not following co mmands. PAST MEDICAL HISTORY: As above includes coronary artery disease, hypertension, hyperlipidemia. He h as no history of drug or alcohol abuse. MEDICATIONS: Per chart. ALLERGIES: NONE. SOCIAL HISTORY: Nonsmoker, no alcohol, no history of drug use. FAMILY HISTORY: Noncontributory. SYSTEMS REVIEW: A 12-point review of systems unable to perform. PHYSICAL EXAMINATION: GENERAL: Well-nourished, well-developed gentleman, comfortable at rest, currently intubated on mecha nical ventilation. VITAL SIGNS: Temperature 99, pulse is 79, blood pressure 130/78, O2 saturation 96%, FIO2 of 40%. NECK: Supple. No JVD. CARDIAC: S1, S2, no added sounds or murmurs. CHEST: Diminished air entry bilaterally. ABDOMEN: Soft, nontender. No guarding or rebound. EXTREMITIES: No cyanosis, clubbing, 1+ edema. NEUROLOGIC: Generalized weakness. LABORATORY DATA: White count 9.6, hemoglobin 12.2, platelets 159. BUN 16, creatinine 1.01, pH 7.44, pCO2 of 38, pO2 146. INR was 0.93. Urinalysis unremarkable. Chest x-ray had shown no infiltrates or effusions. IMPRESSION AND PLAN: Cerebellar hemorrhage with brain stem extension, will require continued neurosurgical intervention bl ood pressure management, initiation of tube feeding, DVT and GI prophylaxis. Dictated By: ARMANDO ESCAMILLA/ROQUE Conf#: [id number] DID#: [id number] CC: TRISTON BREAUX MD;*[facility]*
[2018-12-23] MEDS: SOD CHLORIDE 0.9% 1,000 ML IV SCH (16:23)
[2018-12-23] MEDS ORDERED: LEVETIRACETAM IV 500 MG in DEXTROSE 5% 100 ML IVPB SCH (21:00)
[2018-12-24] VITALS (101 sets, daily range): BP systolic 104–157; BP diastolic 48–76; PULSE 68–93; RESP 14–29
[2018-12-24] MEDS: niCARdipine-NS 0.1MG/ML DRIP 200 ML IV SCH (01:36)
--- NOTE | 2018-12-24 02:24 | OPR ---
DATE OF OPERATION: 12/23/2018 PREOPERATIVE DIAGNOSES: 1. Right cerebellar hemorrhage. 2. Intraventricular hemorrhage. 3. Hydrocephalus. POSTOPERATIVE DIAGNOSES: 1. Right cerebellar hemorrhage. 2. Intraventricular hemorrhage. 3. Hydrocephalus. OPERATION PERFORMED: 1. Suboccipital craniectomy for evacuation of posterior fossa hematoma. 2. Less than 5 cm cranioplasty. 3. Ventricular catheter placement. 4. Use of microscope for intraoperative microdissection. SURGEON: Jovani Bartholomew MD ANESTHESIOLOGIST: Dr. Lou CASEY SAW OPERATOR: None. ANESTHESIA: General endotracheal. ESTIMATED BLOOD LOSS: 200 mL SPECIMEN COLLECTED: Hematoma. DRAINS PLACED: Ventricular catheter. FINDINGS: Hematoma. DISPOSITION: ICU. INDICATIONS: The patient is a 63-year-old male with history of coronary artery disease, who had onse t of a sudden acute severe headache, nausea and vomiting. By the time returned or ER he was obtunded and was intubated. CT scan showed a predominantly right cerebellar hematoma with intraventricular b lood, causing hydrocephalus. At the time the patient was seen the patient did not open his eyes or f ollow commands, though his pupils were still reactive. I discussed the nature of the patient's injur y with the patient's family. I explained that his condition would likely be fatal or with severe joseluis rologic deficits, but surgical decompression may place him in the best position to experience optimal recovery. However, I also cautioned them that the patient may be in any case with a poor quality of life, where otherwise might not have survived. The risks, benefits, and alternatives of surgical in tervention were discussed with the patient's family, who elected for surgical intervention. DESCRIPTION OF PROCEDURE: The patient was brought to the OR. He had already been intubated in the E R and a Chaidez catheter had already been placed. Sequential compression devices were placed on the lo wer extremities. An A-line was placed by Dr. Lou. The patient was initially set up in a supine pos ition with his head up in the gurney. The patient was sterilely prepped and draped. After surgical timeout, the procedure commenced for ventriculostomy. A right ventriculostomy was placed by making a n approximately 1 cm incision in the right frontal scalp 12 cm posterior to the nasion and 2.5 cm fro m midline. A bur hole was performed with a twist drill and the dura incised. A ventricular catheter was passed 6 cm into the brain at which point bloody spinal fluid came out under slight increased pr essure. The catheter was tunneled under the skin and secured to the skin with a nylon suture and the initial incision also closed. This was connected to an extraventricular drain. The patient was the n placed in Pagan 3-point fixation and turned in a prone position on the operative table on gel ro ll. The patient's arms were tucked at the side and all pressure points were appropriately padded. T he patient was secured to the operative table and sterilely prepped and draped. After another surgic al timeout, the formal procedure began. A 10 blade knife was used to make a hockey stick-shaped inci una in the midline with the arm towards the right, over the right posterior fossa. Bovie electrocau shayne was used to dissect down to the bone and dissection of the tissue and muscle down to the foramen magnum and C1 was performed. The flap was reflected inferolaterally, exposing the right side of the cerebellum. A engineer third assistant was used to create a bur hole and then rongeur was used to remove the bone . The microscope was brought in and the dura was opened with an 11 blade knife. Blood did not come immediately to the surface, hence a [place] was used to dissect through the cerebellum, after which point some blood came out under pressure. A pituitary was then used to remove a more solid congealed blood clot that measured about 2 x 3 x 3 cm in size. This appeared to be congealed blood, but possi hernan could have been an isolated lesion and hence this was sent for pathology. There was still signif icant bleeding within the resection cavity and bipolar electrocautery was used to obtain hemostasis. Surgifoam was also placed incision as well as hydrogen peroxide-soaked pledgets. The bleeding was constant but began to slow; after about 20 minutes the bleeding had stopped. There was a large resec tion cavity. Again, under microscopic evaluation, coagulation circumferentially over the the inner s urface of the resection cavity was performed and Surgifoam placed in the incision and irrigated out w ith irrigation. When the irrigation appeared to come forth without evidence of any blood, then Surgi kortney was used to line the resection cavity. Valsalva was performed; there was no evidence of bleeding . The cerebellum appeared significantly decompressed and had fallen away from the dura at this point . Once hemostasis was achieved the dura was then closed with 4-0 Nurolon interrupted sutures. A sma ll pericranial graft was taken and used to help repair the dura as well. Then a piece of Duragen was placed on the dura. A cranioplasty using a cranial mesh plate was then performed and the mesh was s ecured to the bone with screws. Then, DuraSeal was placed over the dura. The retractors were remove d and hemostasis was achieved. The paraspinal musculature was reattached and closed and the fascia c losed with 0 Vicryl sutures and subcutaneous tissue with 2-0 Vicryl sutures and keo were used for the skin. A sterile dressing was applied. The patient was taken off the table, taken out of Mayfie ld fixation, and taken to recovery. Sponge, needle and cottonoid count was reported correct at the e nd of the case. Dictated By: JOVANI BARTHOLOMEW MD, LG/ROQUE Conf#: [id number] DID#: [id number]
[2018-12-24] MEDS: niCARdipine 50 MG in SOD CHLORIDE 0.9% 480 ML IV SCH ×4 (03:47→23:08)
[2018-12-24] MEDS: ACETAMINOPHEN 650 MG SUPP PR PRN ×2 (04:20→20:34)
[2018-12-24] MEDS: PANTOPRAZOLE 40 MG INJ IV SCH (05:31)
[2018-12-24] MEDS: SOD CHLORIDE 0.9% 1,000 ML IV SCH ×2 (05:31→19:10)
[2018-12-24] MEDS: LEVETIRACETAM 500 MG (PMX) 100 ML IVPB SCH ×2 (08:12→20:34)
[2018-12-24] MEDS: CEFAZOLIN 2 GM/50 ML (PMX) 50 ML IVPB SCH ×4 (08:24→23:36)
--- NOTE | 2018-12-24 10:06 | CONS ---
Consult Date/Type/Reason Admit Date/Time Dec 22, 2018 at 23:55 Initial Consult Date Type of Consult Pulmonary Date/Time of Note DATE: 12/24/18 TIME: 10:04 Subjective Continues mechanical ventilation with repeat CT scan this morning. Neurologically unchanged. Objective Vital Signs Date Temp Pulse Resp B/P (MAP) Pulse Ox O2 O2 Flow FiO2 Time Delivery Rate 12/24/18 75 19 114/48 97 09:15 (70) 12/24/18 Mechanical 09:00 Ventilator 12/24/18 98.3 08:00 12/24/18 40 07:45 Intake and Output 12/23/18 12/23/18 12/24/18 1515:00 23:00 07:00 IntakeIntake Total 742.5 ml 1175 ml 860 ml OutputOutput Total 350 ml 256 ml 259 ml BalanceBalance 392.5 ml 919 ml 601 ml Exam PHYSICAL EXAMINATION: GENERAL: Well-nourished, well-developed gentleman, comfortable at rest, cu rrently intubated on mechanical ventilation. VITAL SIGNS: NECK: Supple. No JVD. CARDIAC: S1, S2, no added sounds or murmurs. CHEST: Diminished air entry bilaterally. ABDOMEN: Soft, nontender. No guarding or rebound. EXTREMITIES: No cyanosis, clubbing, 1+ edema. NEUROLOGIC: Generalized weakness. Vent Setting Ventilator Support Mode: AC Fraction of Inspired Oxygen pe: 40 Positive End Expiratory Pressu: 5.0 Results/Medications Result Diagram: 12/24/185 12/24/18 0425 Results 24 hrs Laboratory Tests Test 12/24/18 04:25 White Blood Count 9.8 Red Blood Count 4.11 L Hemoglobin 10.4 L Hematocrit 33.7 L Mean Corpuscular Volume 82.0 Mean Corpuscular Hemoglobin 25.3 L Mean Corpuscular Hemoglobin Concent 30.9 L Red Cell Distribution Width 16.3 H Platelet Count 141 Mean Platelet Volume 10.3 Immature Granulocytes % 0.500 H Neutrophils % 83.3 H Lymphocytes % 8.3 L Monocytes % 7.8 Eosinophils % 0.0 Basophils % 0.1 Nucleated Red Blood Cells % 0.0 Immature Granulocytes # 0.050 H Neutrophils # 8.2 H Lymphocytes # 0.8 Monocytes # 0.8 Eosinophils # 0.0 Basophils # 0.0 Nucleated Red Blood Cells # 0.0 Sodium Level 138 Potassium Level 3.1 L Chloride Level 105 Carbon Dioxide Level 25 Anion Gap 8 Blood Urea Nitrogen 21 H Creatinine 1.01 Est Glomerular Filtrat Rate mL/min > 60 Glucose Level 121 # Calcium Level 8.2 L Magnesium Level 1.7 Medications Current Medications Labetalol HCl (Labetalol) 20 mg Q20M PRN IV ELEVATED BLOOD PRESSURE Last administered on 12/22/18 17:44; Admin Dose 20 MG; Start 12/22/18 at 17:30 Ondansetron HCl (Zofran Inj) 4 mg Q6H PRN IV NAUSEA AND/OR VOMITING Last administered on 12/23/18 05:15; Admin Dose 4 MG; Start 12/22/18 at 23:00 Albuterol (Ventolin Hfa) 4 puff Q2H RESP THERAPY PRN INH SHORTNESS OF BREATH; Start 12/22/18 at 23:00 Ipratropium [place] (Atrovent Hfa) 4 puff Q2H RESP THERAPY PRN INH SHORTNESS OF BREATH; Start 12/22/18 at 23:00 Acetaminophen (Tylenol Supp) 650 mg Q4H PRN [place] PAIN LEVEL 1-3 OR FEVER Last administered on 12/24/18 04:20; Admin Dose 650 MG; Start 12/22/18 at 23:00 Pantoprazole (Protonix Iv) 40 mg DAILY@06 IV Last administered on 12/24/18 05:31; Admin Dose 40 MG; Start 12/23/18 at 06:00 Propofol 100 ml @ 2.387 mls/ hr PER PROTOCOL IV ; Start 12/22/18 at 23:00 Diphenhydramine HCl (Benadryl) 25 mg Q6H PRN IV ITCHING; Start 12/23/18 at 00:00 Morphine Sulfate (morphine) 2 mg Q2H PRN IV SEVERE PAIN LEVEL 7-10 Last administered on 12/23/18 13:26; Admin Dose 2 MG; Start 12/23/18 at 09:30 Cefazolin Sodium/ Dextrose 50 ml @ 100 mls/hr Q8H IVPB Last administered on 12/24/18 08:24; Admin Dose 100 MLS/HR; Start 12/23/18 at 16:00 Levetiracetam 100 ml @ 400 mls/hr Q12 IVPB Last administered on 7/21/19at 08 :12; Admin Dose 400 MLS/HR; Start 12/23/18 at 13:00 Sodium Chloride 1,000 ml @ 75 mls/hr [id number] IV Last administered on 12/24/18at 05:31; Admin Dose 75 MLS/HR; Start 12/23/18 at 16:30 Nicardipine HCl 50 mg/Sodium Chloride 500 ml @ 50 mls/hr TITRATE IV Last administered on 12/24/18at 08:08; Admin Dose 100 MLS/HR; Start 12/24/18 at 02:00 Assessment/Plan Hospital Course (Demo Recall) Assessment 1. Posterior cerebellar hemorrhage with subsequent respiratory failure and encephalopathy. 2. Status post craniectomy and ventriculostomy 3. Respiratory failure secondary to above 4. Dysphasia secondary to above Plan 1. Continue Cardene keep systolic blood pressure stable. 2. Continue mechanical ventilation patient not stable for weaning at present 3. Continue to replace electrolytes as needed 4. Place nasogastric tube start tube feeding, per nursing staff NG tube has been difficult to place if this problem continues we may require either GI or IR to place NG tube. Critical care time 40 minutes ARMANDO HENSLEY MD, [facility] Dec 24, 2018 10:06
--- NOTE | 2018-12-24 12:41 | PN ---
Date/Time of Note Date/Time of Note DATE: 12/24/18 TIME: 12:38 Assessment/Plan Lines/Catheters IV Catheter Type (from [facility]): A Line Chaidez in Place (from [facility]): Yes Assessment/Plan Chief Complaint/Hosp Course POD # 2 s/p suboccipital craniotomy for evacuation of hematoma/ EVD. Patient unchanged, exam still poor. CT stable. Cont. EVD, medical supportive care. D/W family prognosis. MRI tomorrow to assess for strokes/ damage that may help with prognostication. Subjective 24 Hr Interval Summary Subjective hx not possible: pt non-verbal Exam/Review of Systems Vital Signs Vitals Vital Signs Date Temp Pulse Resp B/P (MAP) Pulse Ox O2 O2 Flow FiO2 Time Delivery Rate 12/24/18 74 16 130/58 97 11:15 (82) 12/24/18 Mechanical 11:00 Ventilator 12/24/18 98.3 08:00 12/24/18 40 07:45 Intake and Output 12/23/18 12/23/18 12/24/18 1515:00 23:00 07:00 IntakeIntake Total 742.5 ml 1175 ml 860 ml OutputOutput Total 350 ml 256 ml 309 ml BalanceBalance 392.5 ml 919 ml 551 ml Exam Head: normocephalic, other (EVD in place) Eyes: PERRL, other (left eye deviates to left) Neurological: other (opens eyes to sternal rub and name. Withdraws x 4. Does not follwo commands, no spontenous purposeful movements. ) Results Result Diagram: 12/24/18 0425 12/24/[address] stable. less IVH but still in fourth. No increase in blood in resection cavity, non-compressive. JOVANI MCGARRY MD Dec 24, 2018 12:41
[2018-12-24] MEDS: POTASSIUM CHLORIDE 100 ML IVPB SCH ×2 (14:16→16:27)
--- NOTE | 2018-12-24 17:18 | PN ---
Date/Time of Note Date/Time of Note DATE: 12/24/18 TIME: 17:16 Assessment/Plan VTE Prophylaxis Risk score (from [facility] [place] [facility])>0 risk: 15 SCD applied (from [facility] [place]): Yes Pharmacological prophylaxis: NA/contraindicated Pharm contraindication: bleeding Assessment/Plan Hospital Course 1. Large right cerebellar hemorrhage: status post craniectomy with evacuation of hematoma and right frontal ventriculostomy placement -Tight BP control, with the parameters per neurosurgery 2. Hypertensive emergency: BP better controlled -Patient presented with a blood pressure of 235/125 -Cardizem drip 3. Vent dependent respiratory failure: Secondary to #1 -Continue vent support -Pulmonary to manage 4. History of CAD with CABG -Hold aspirin 5. Dyslipidemia: Hold statin for now 6. History of dementia: Hold the donepezil for now Prophylaxis: SCDs DC planning: Continue BP control, continue vent support, follow-up on neurosurgery recommendations Result Diagram: 12/24/18 0425 12/24/18 0425 Results 24hrs Laboratory Tests Test 12/24/18 04:25 White Blood Count 9.8 Red Blood Count 4.11 L Hemoglobin 10.4 L Hematocrit 33.7 L Mean Corpuscular Volume 82.0 Mean Corpuscular Hemoglobin 25.3 L Mean Corpuscular Hemoglobin Concent 30.9 L Red Cell Distribution Width 16.3 H Platelet Count 141 Mean Platelet Volume 10.3 Immature Granulocytes % 0.500 H Neutrophils % 83.3 H Lymphocytes % 8.3 L Monocytes % 7.8 Eosinophils % 0.0 Basophils % 0.1 Nucleated Red Blood Cells % 0.0 Immature Granulocytes # 0.050 H Neutrophils # 8.2 H Lymphocytes # 0.8 Monocytes # 0.8 Eosinophils # 0.0 Basophils # 0.0 Nucleated Red Blood Cells # 0.0 Sodium Level 138 Potassium Level 3.1 L Chloride Level 105 Carbon Dioxide Level 25 Anion Gap 8 Blood Urea Nitrogen 21 H Creatinine 1.01 Est Glomerular Filtrat Rate mL/min > 60 Glucose Level 121 # Calcium Level 8.2 L Magnesium Level 1.7 Subjective 24 Hr Interval Summary Subjective hx not possible: pt non-verbal Exam/Review of Systems Exam Vitals Vital Signs Date Temp Pulse Resp B/P (MAP) Pulse Ox O2 O2 Flow FiO2 Time Delivery Rate 12/24/18 76 15 136/58 16:30 (84) 12/24/18 100 16:15 12/24/18 98.4 16:00 12/24/18 40 15:30 12/24/18 Mechanical 15:00 Ventilator Intake and Output 12/23/18 12/23/18 12/24/18 1515:00 23:00 07:00 IntakeIntake Total 742.5 ml 1175 ml 860 ml OutputOutput Total 350 ml 256 ml 309 ml BalanceBalance 392.5 ml 919 ml 551 ml Constitutional: non-verbal ENMT: intubated Respiratory: clear to auscultation Cardiovascular: regular rate and rhythm Gastrointestinal: soft; No distended Musculoskeletal: nl extremities to inspection Results Results 24hrs Laboratory Tests Test 12/24/18 04:25 White Blood Count 9.8 Red Blood Count 4.11 L Hemoglobin 10.4 L Hematocrit 33.7 L Mean Corpuscular Volume 82.0 Mean Corpuscular Hemoglobin 25.3 L Mean Corpuscular Hemoglobin Concent 30.9 L Red Cell Distribution Width 16.3 H Platelet Count 141 Mean Platelet Volume 10.3 Immature Granulocytes % 0.500 H Neutrophils % 83.3 H Lymphocytes % 8.3 L Monocytes % 7.8 Eosinophils % 0.0 Basophils % 0.1 Nucleated Red Blood Cells % 0.0 Immature Granulocytes # 0.050 H Neutrophils # 8.2 H Lymphocytes # 0.8 Monocytes # 0.8 Eosinophils # 0.0 Basophils # 0.0 Nucleated Red Blood Cells # 0.0 Sodium Level 138 Potassium Level 3.1 L Chloride Level 105 Carbon Dioxide Level 25 Anion Gap 8 Blood Urea Nitrogen 21 H Creatinine 1.01 Est Glomerular Filtrat Rate mL/min > 60 Glucose Level 121 # Calcium Level 8.2 L Magnesium Level 1.7 Medications Medication Current Medications Labetalol HCl (Labetalol) 20 mg Q20M PRN IV ELEVATED BLOOD PRESSURE Last administered on 12/22/18at 17:44; Admin Dose 20 MG; Start 12/22/18 at 17:30 Ondansetron HCl (Zofran Inj) 4 mg Q6H PRN IV NAUSEA AND/OR VOMITING Last administered on 12/23/18at 05:15; Admin Dose 4 MG; Start 12/22/18 at 23:00 Albuterol (Ventolin Hfa) 4 puff Q2H RESP THERAPY PRN INH SHORTNESS OF BREATH; Start 12/22/18 at 23:00 Ipratropium [place] (Atrovent Hfa) 4 puff Q2H RESP THERAPY PRN INH SHORTNESS OF BREATH; Start 12/22/18 at 23:00 Acetaminophen (Tylenol Supp) 650 mg Q4H PRN [place] PAIN LEVEL 1-3 OR FEVER Last administered on 12/24/18 04:20; Admin Dose 650 MG; Start 12/22/18 at 23:00 Pantoprazole (Protonix Iv) 40 mg DAILY@06 IV Last administered on 12/24/18 05:31; Admin Dose 40 MG; Start 12/23/18 at 06:00 Propofol 100 ml @ 2.387 mls/ hr PER PROTOCOL IV ; Start 12/22/18 at 23:00 Diphenhydramine HCl (Benadryl) 25 mg Q6H PRN IV ITCHING; Start 12/23/18 at 00:00 Morphine Sulfate (morphine) 2 mg Q2H PRN IV SEVERE PAIN LEVEL 7-10 Last administered on 12/23/18 13:26; Admin Dose 2 MG; Start 12/23/18 at 09:30 Cefazolin Sodium/ Dextrose 50 ml @ 100 mls/hr Q8H IVPB Last administered on 12/24/18 16:27; Admin Dose 100 MLS/HR; Start 12/23/18 at 16:00 Levetiracetam 100 ml @ 400 mls/hr Q12 IVPB Last administered on 12/24/18 08:12; Admin Dose 400 MLS/HR; Start 12/23/18 at 13:00 Sodium Chloride 1,000 ml @ 75 mls/hr [id number] IV Last administered on 12/24/18 05:31; Admin Dose 75 MLS/HR; Start 12/23/18 at 16:30 Nicardipine HCl 50 mg/Sodium Chloride 500 ml @ 50 mls/hr TITRATE IV Last administered on 12/24/18 16:36; Admin Dose 80 MLS/HR; Start 12/24/18 at 02:00 Potassium Chloride 100 ml @ 50 mls/hr Q2H IVPB Last administered on 12/24/18 16:27; Admin Dose 50 MLS/HR; Start 12/24/18 at 14:00; Stop 12/24/18 at 17:59 STEPHANIE SALGUERO Dec 24, 2018 17:18
[2018-12-25] VITALS (100 sets, daily range): BP systolic 110–149; BP diastolic 50–82; PULSE 76–101; RESP 12–27
[2018-12-25] MEDS: SOD CHLORIDE 0.9% 1,000 ML IV SCH (02:11)
[2018-12-25] MEDS: niCARdipine 50 MG in SOD CHLORIDE 0.9% 480 ML IV SCH ×4 (03:58→21:42)
[2018-12-25] MEDS: PANTOPRAZOLE 40 MG INJ IV SCH (05:08)
[2018-12-25] MEDS ORDERED: POTASSIUM CHLORIDE 100 ML IVPB ONE (06:30)
[2018-12-25] MEDS: LEVETIRACETAM 500 MG (PMX) 100 ML IVPB SCH ×2 (08:49→20:29)
[2018-12-25] MEDS: CEFAZOLIN 2 GM/50 ML (PMX) 50 ML IVPB SCH ×2 (08:49→15:51)
--- NOTE | 2018-12-25 09:41 | PN ---
Date/Time of Note Date/Time of Note DATE: 12/25/18 TIME: 09:33 Assessment/Plan Lines/Catheters IV Catheter Type (from [facility]): A Line Chaidez in Place (from [facility]): Yes Assessment/Plan Chief Complaint/Hosp Course POD # 3 s/p suboccipital craniotomy for evacuation of hematoma/ EVD. Patient slightly worse. ICPs good, < 10, CSF clearing, minimal blood. Prognosis poor. Has dental implants, attempting to call dentist to see if compatible, if so will get MRI. cont. EVD drainage. Palliative treatment may be best course of action depending on QoL expectations; discussed with pt.'s .. cont. Medical supportive care. Subjective 24 Hr Interval Summary Subjective hx not possible: pt non-verbal Exam/Review of Systems Vital Signs Vitals Vital Signs Date Temp Pulse Resp B/P (MAP) Pulse Ox O2 O2 Flow FiO2 Time Delivery Rate 12/25/18 87 19 138/54 96 08:45 (82) 12/25/18 98.7 Mechanical 08:00 Ventilator 12/25/18 84 07:21 Intake and Output 12/24/18 12/24/18 12/25/18 1515:00 23:00 07:00 IntakeIntake Total 1345 ml 1565 ml 1610 ml OutputOutput Total 455 ml 462 ml 544 ml BalanceBalance 890 ml 1103 ml 1066 ml Exam Eyes: PERRL Neurological: other (opens yes briefly and minimally to noxious stimuli. No spontaneuous extremity movements. No UE withdraw today, LE ) Results Result Diagram: 12/25/18 0400 12/25/18 0400 JOVANI MCGARRY MD Dec 25, 2018 09:41
[2018-12-25] MEDS ORDERED: niCARdipine-NS 0.1MG/ML DRIP 200 ML ONE (10:08)
--- NOTE | 2018-12-25 10:34 | CONS ---
Consult Date/Type/Reason Admit Date/Time Dec 22, 2018 at 23:55 Initial Consult Date Type of Consult Pulmonary Date/Time of Note DATE: 12/25/18 TIME: 10:33 Subjective Patient remains somnolent on mechanical ventilation. Pending MRI today. Objective Vital Signs Date Temp Pulse Resp B/P (MAP) Pulse Ox O2 O2 Flow FiO2 Time Delivery Rate 12/25/18 88 21 95 40 09:43 12/25/18 138/54 08:45 (82) 12/25/18 98.7 Mechanical 08:00 Ventilator Intake and Output 12/24/18 12/24/18 12/25/18 1515:00 23:00 07:00 IntakeIntake Total 1345 ml 1565 ml 1610 ml OutputOutput Total 455 ml 462 ml 544 ml BalanceBalance 890 ml 1103 ml 1066 ml Exam PHYSICAL EXAMINATION: GENERAL: Well-nourished, well-developed gentleman, comfortable at rest, currently intubated on mechanical ventilation. VITAL SIGNS: NECK: Supple. No JVD. CARDIAC: S1, S2, no added sounds or murmurs. CHEST: Diminished air entry bilaterally. ABDOMEN: Soft, nontender. No guarding or rebound. EXTREMITIES: No cyanosis, clubbing, 1+ edema. NEUROLOGIC: Generalized weakness Vent Setting Ventilator Support Mode: AC Fraction of Inspired Oxygen pe: 40 Positive End Expiratory Pressu: 5.0 Results/Medications Result Diagram: 12/25/18 0400 12/25/18 0400 Results 24 hrs Laboratory Tests Test 12/25/18 04:00 White Blood Count 8.3 Red Blood Count 3.77 L Hemoglobin 9.5 L Hematocrit 31.1 L Mean Corpuscular Volume 82.5 Mean Corpuscular Hemoglobin 25.2 L Mean Corpuscular Hemoglobin Concent 30.5 L Red Cell Distribution Width 16.4 H Platelet Count 140 Mean Platelet Volume 10.8 H Immature Granulocytes % 0.400 Neutrophils % 83.5 H Lymphocytes % 8.4 L Monocytes % 7.6 Eosinophils % 0.0 Basophils % 0.1 Nucleated Red Blood Cells % 0.0 Immature Granulocytes # 0.030 Neutrophils # 7.0 Lymphocytes # 0.7 L Monocytes # 0.6 Eosinophils # 0.0 Basophils # 0.0 Nucleated Red Blood Cells # 0.0 Sodium Level 140 Potassium Level 3.4 L Chloride Level 111 H Carbon Dioxide Level 22 Anion Gap 7 Blood Urea Nitrogen 18 Creatinine 0.79 Est Glomerular Filtrat Rate mL/min > 60 Glucose Level 123 Calcium Level 8.0 L Magnesium Level 1.9 Medications Current Medications Labetalol HCl (Labetalol) 20 mg Q20M PRN IV ELEVATED BLOOD PRESSURE Last administered on 12/22/18 17:44; Admin Dose 20 MG; Start 12/22/18 at 17:30 Ondansetron HCl (Zofran Inj) 4 mg Q6H PRN IV NAUSEA AND/OR VOMITING Last administered on 12/23/18 05:15; Admin Dose 4 MG; Start 12/22/18 at 23:00 Albuterol (Ventolin Hfa) 4 puff Q2H RESP THERAPY PRN INH SHORTNESS OF BREATH; Start 12/22/18 at 23:00 Ipratropium [place] (Atrovent Hfa) 4 puff Q2H RESP THERAPY PRN INH SHORTNESS OF BREATH; Start 12/22/18 at 23:00 Acetaminophen (Tylenol Supp) 650 mg Q4H PRN [place] PAIN LEVEL 1-3 OR FEVER Last administered on 12/24/18 20:34; Admin Dose 650 MG; Start 12/22/18 at 23:00 Pantoprazole (Protonix Iv) 40 mg DAILY@06 IV Last administered on 12/25/18 05:08; Admin Dose 40 MG; Start 12/23/18 at 06:00 Propofol 100 ml @ 2.387 mls/ hr PER PROTOCOL IV ; Start 12/22/18 at 23:00 Diphenhydramine HCl (Benadryl) 25 mg Q6H PRN IV ITCHING; Start 12/23/18 at 00:00 Morphine Sulfate (morphine) 2 mg Q2H PRN IV SEVERE PAIN LEVEL 7-10 Last administered on 12/23/18 13:26; Admin Dose 2 MG; Start 12/23/18 at 09:30 Cefazolin Sodium/ Dextrose 50 ml @ 100 mls/hr Q8H IVPB Last administered on 12/25/18 08:49; Admin Dose 100 MLS/HR; Start 12/23/18 at 16:00 Levetiracetam 100 ml @ 400 mls/hr Q12 IVPB Last administered on 12/25/18 08:49; Admin Dose 400 MLS/HR; Start 12/23/18 at 13:00 Sodium Chloride 1,000 ml @ 75 mls/hr [id number] IV Last administered on 12/25/18at 02:11; Admin Dose 75 MLS/HR; Start 12/23/18 at 16:30 Nicardipine HCl 50 mg/Sodium Chloride 500 ml @ 50 mls/hr TITRATE IV Last administered on 12/25/18at 10:22; Admin Dose 100 MLS/HR; Start 12/24/18 at 02:00 Assessment/Plan Hospital Course (Demo Recall) Assessment 1. Posterior cerebellar hemorrhage with subsequent respiratory failure and encephalopathy. 2. Status post craniectomy and ventriculostomy 3. Respiratory failure secondary to above 4. Dysphasia secondary to above Plan 1. Continue Cardene keep systolic blood pressure stable. 2. Continue mechanical ventilation patient not stable for weaning at present 3. Continue to replace electrolytes as needed 4. Continue nasogastric tube placement 5. MRI of brain for further evaluation of injury. Critical care time 40 minutes Discussed with patient's family at bedside overall prognosis is extremely poor. ARMANDO HENSLEY MD, [facility] Dec 25, 2018 10:34
--- NOTE | 2018-12-25 14:16 | PN ---
Date/Time of Note Date/Time of Note DATE: 12/25/18 TIME: 14:11 Assessment/Plan VTE Prophylaxis Risk score (from Ns)>0 risk: 14 SCD applied (from Ns): Yes Pharmacological prophylaxis: heparin Lines/Catheters IV Catheter Type (from Nrsg): A Line Central line still needed: Yes Urinary Cath still in place: Yes Reason Cath still needed: urinary retention Assessment/Plan Hospital Course Intubated No resposne to noxious stimuli Pupils sluggish, constricted RRR CTAB Soft nt nd A/P: 63 yo male with h/o HTN, CAD who presented with ICH, now POD # 2 s/p suboccipital craniotomy for evacuation of hematoma and placement of EVD s/p ICH leading to acute encephelopathy/coma: - Poor neurologic status - Await MRI results which may help with prognostication - EVD management per neurosurgery - i communicated advanced state of illness with his family. He has no known advanced directives. We will give him a couple more days and continue goals of care discussions - BP management - Keppra ppx Acute respiratory failure: - Continue mechanical ventilation CAD: - Holding antiplatelets Result Diagram: 12/25/18 0400 12/25/18 0400 Results 24hrs Laboratory Tests Test 12/25/18 04:00 White Blood Count 8.3 Red Blood Count 3.77 L Hemoglobin 9.5 L Hematocrit 31.1 L Mean Corpuscular Volume 82.5 Mean Corpuscular Hemoglobin 25.2 L Mean Corpuscular Hemoglobin Concent 30.5 L Red Cell Distribution Width 16.4 H Platelet Count 140 Mean Platelet Volume 10.8 H Immature Granulocytes % 0.400 Neutrophils % 83.5 H Lymphocytes % 8.4 L Monocytes % 7.6 Eosinophils % 0.0 Basophils % 0.1 Nucleated Red Blood Cells % 0.0 Immature Granulocytes # 0.030 Neutrophils # 7.0 Lymphocytes # 0.7 L Monocytes # 0.6 Eosinophils # 0.0 Basophils # 0.0 Nucleated Red Blood Cells # 0.0 Sodium Level 140 Potassium Level 3.4 L Chloride Level 111 H Carbon Dioxide Level 22 Anion Gap 7 Blood Urea Nitrogen 18 Creatinine 0.79 Est Glomerular Filtrat Rate mL/min > 60 Glucose Level 123 Calcium Level 8.0 L Magnesium Level 1.9 Subjective 24 Hr Interval Summary Free Text/Dictation Patient comatose, nonresponsive, nonverbal Intubated Exam/Review of Systems Exam Vitals Vital Signs Date Temp Pulse Resp B/P (MAP) Pulse Ox O2 O2 Flow FiO2 Time Delivery Rate 12/25/18 93 25 129/68 93 Mechanical 14:00 (88) Ventilator 12/25/18 40 13:25 12/25/18 98.5 12:00 Intake and Output 12/24/18 12/24/18 12/25/18 1515:00 23:00 07:00 IntakeIntake Total 1345 ml 1565 ml 1610 ml OutputOutput Total 455 ml 462 ml 544 ml BalanceBalance 890 ml 1103 ml 1066 ml Results Results 24hrs Laboratory Tests Test 12/25/18 04:00 White Blood Count 8.3 Red Blood Count 3.77 L Hemoglobin 9.5 L Hematocrit 31.1 L Mean Corpuscular Volume 82.5 Mean Corpuscular Hemoglobin 25.2 L Mean Corpuscular Hemoglobin Concent 30.5 L Red Cell Distribution Width 16.4 H Platelet Count 140 Mean Platelet Volume 10.8 H Immature Granulocytes % 0.400 Neutrophils % 83.5 H Lymphocytes % 8.4 L Monocytes % 7.6 Eosinophils % 0.0 Basophils % 0.1 Nucleated Red Blood Cells % 0.0 Immature Granulocytes # 0.030 Neutrophils # 7.0 Lymphocytes # 0.7 L Monocytes # 0.6 Eosinophils # 0.0 Basophils # 0.0 Nucleated Red Blood Cells # 0.0 Sodium Level 140 Potassium Level 3.4 L Chloride Level 111 H Carbon Dioxide Level 22 Anion Gap 7 Blood Urea Nitrogen 18 Creatinine 0.79 Est Glomerular Filtrat Rate mL/min > 60 Glucose Level 123 Calcium Level 8.0 L Magnesium Level 1.9 Medications Medication Current Medications Labetalol HCl (Labetalol) 20 mg Q20M PRN IV ELEVATED BLOOD PRESSURE Last administered on 12/22/18at 17:44; Admin Dose 20 MG; Start 12/22/18 at 17:30 Ondansetron HCl (Zofran Inj) 4 mg Q6H PRN IV NAUSEA AND/OR VOMITING Last administered on 12/23/18at 05:15; Admin Dose 4 MG; Start 12/22/18 at 23:00 Albuterol (Ventolin Hfa) 4 puff Q2H RESP THERAPY PRN INH SHORTNESS OF BREATH; Start 12/22/18 at 23:00 Ipratropium [place] (Atrovent Hfa) 4 puff Q2H RESP THERAPY PRN INH SHORTNESS OF BREATH; Start 12/22/18 at 23:00 Acetaminophen (Tylenol Supp) 650 mg Q4H PRN [place] PAIN LEVEL 1-3 OR FEVER Last administered on 12/24/18 20:34; Admin Dose 650 MG; Start 12/22/18 at 23:00 Pantoprazole (Protonix Iv) 40 mg DAILY@06 IV Last administered on 12/25/18 05:08; Admin Dose 40 MG; Start 12/23/18 at 06:00 Propofol 100 ml @ 2.387 mls/ hr PER PROTOCOL IV ; Start 12/22/18 at 23:00 Diphenhydramine HCl (Benadryl) 25 mg Q6H PRN IV ITCHING; Start 12/23/18 at 00:0 0 Morphine Sulfate (morphine) 2 mg Q2H PRN IV SEVERE PAIN LEVEL 7-10 Last administered on 12/23/18 13:26; Admin Dose 2 MG; Start 12/23/18 at 09:30 Cefazolin Sodium/ Dextrose 50 ml @ 100 mls/hr Q8H IVPB Last administered on 12/25/18 08:49; Admin Dose 100 MLS/HR; Start 12/23/18 at 16:00 Levetiracetam 100 ml @ 400 mls/hr Q12 IVPB Last administered on 12/25/18 08:49; Admin Dose 400 MLS/HR; Start 12/23/18 at 13:00 Sodium Chloride 1,000 ml @ 75 mls/hr [id number] IV Last administered on 12/25/18 02:11; Admin Dose 75 MLS/HR; Start 12/23/18 at 16:30 Nicardipine HCl 50 mg/Sodium Chloride 500 ml @ 50 mls/hr TITRATE IV Last administered on 12/25/18 10:22; Admin Dose 100 MLS/HR; Start 12/24/18 at 02:00 EB CEDEÑO MD Dec 25, 2018 14:16
[2018-12-25] MEDS ORDERED: LORAZEPAM 2 MG INJ ONE (22:52)
[2018-12-25] MEDS: LORAZEPAM 2 MG INJ IV PRN (22:55)
[2018-12-25] MEDS: LEVETIRACETAM 1000 MG (PMX) 100 ML IVPB SCH (23:13)
[2018-12-26] VITALS (97 sets, daily range): BP systolic 99–139; BP diastolic 60–81; PULSE 59–105; RESP 12–29
[2018-12-26] MEDS: CEFAZOLIN 2 GM/50 ML (PMX) 50 ML IVPB SCH (00:22)
[2018-12-26] MEDS: niCARdipine 50 MG in SOD CHLORIDE 0.9% 480 ML IV SCH ×4 (02:34→18:59)
[2018-12-26] MEDS: ACETAMINOPHEN 650MG/20.3ML CUP NGT PRN (05:02)
[2018-12-26] MEDS: LANSOPRAZOLE 30 MG CAP PO SCH (05:22)
[2018-12-26] MEDS ORDERED: VANCOMYCIN IV PER PHARMACY XX SCH (05:30)
[2018-12-26] MEDS: PIPER-TAZO 3.375 GM IV (PMX) 100 ML IVPB SCH ×4 (06:24→23:31)
[2018-12-26] MEDS ORDERED: VANCOMYCIN 1.5 GM/NS 250 ML 250 ML IVPB ONE (06:30)
--- NOTE | 2018-12-26 08:23 | PN ---
Date/Time of Note Date/Time of Note DATE: 12/26/18 TIME: 08:18 Assessment/Plan Lines/Catheters IV Catheter Type (from Nrs): Peripheral IV Chaidez in Place (from Nrs): Yes Assessment/Plan Chief Complaint/Hosp Course POD # 3 s/p suboccipital craniotomy for evacuation of hematoma/ EVD. Patient continues to do poorly. ICPs have been low. MRI suggest possible brain stem infarcts, await radiologist's interpretation. Likely significant damage from bleed. Prognosis poor. Rec. family consider palliation and would not shunt unless family wish patient to cont. with likely very poor QoL. Cont. medical supportive care, EVD drainage for now. Subjective 24 Hr Interval Summary Subjective hx not possible: pt non-verbal Exam/Review of Systems Vital Signs Vitals Vital Signs Date Temp Pulse Resp B/P (MAP) Pulse Ox O2 O2 Flow FiO2 Time Delivery Rate 12/26/18 84 21 117/68 95 Mechanical 06:00 (84) Ventilator 12/26/18 99.9 05:47 12/26/18 35 05:37 Intake and Output 12/25/18 12/25/18 12/26/18 1515:00 23:00 07:00 IntakeIntake Total 1510 ml 1410 ml 1420 ml OutputOutput Total 426 ml 612 ml 761 ml BalanceBalance 1084 ml 798 ml 659 ml Exam Neurological: other (no eye opening, does not withdrawl UE to pain, no spontaneous movements or follow commands. Pupils small and minimally reactive, no oculocephalic reflex) Results Result Diagram: 12/26/18 0449 12/26/18 0449 Procedures Procedures MRI report pending. Small T2 hyperintensities and various places in brainstem. JOVANI MCGARRY MD Dec 26, 2018 08:23
[2018-12-26] MEDS: LEVETIRACETAM 1000 MG (PMX) 100 ML IVPB SCH ×2 (08:43→20:45)
--- NOTE | 2018-12-26 10:27 | PN ---
Date/Time of Note Date/Time of Note DATE: 12/26/18 TIME: 09:57 Assessment/Plan VTE Prophylaxis Risk score (from Ns)>0 risk: 15 SCD applied (from Ns): Yes Pharmacological prophylaxis: NA/contraindicated Pharm contraindication: hemorrhagic infarct Lines/Catheters IV [facility] (from [facility]): Peripheral IV Urinary Cath still in place: Yes Reason Cath still needed: terminal illness/intractable pain Assessment/Plan Hospital Course 63-year-old female with a past medical history of high blood pressure only who presented to the emergency room with sudden onset of fever headache and collapse in the emergency room was found to have large right cerebellar hemorrhage extending into the ventricles and was emergently rushed to the operating room for suboccipital craniectomy for evacuation of hematoma with right frontal ventriculostomy. He has been managed postoperatively in the ICU as follows: 1. Acute encephalopathy secondary to #2 -Patient has poor long-term overall prognosis, family updated on consult, will continue to follow, continue current management 2. 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 -MRI continues to show residual right cerebellar hematoma and moderate bilateral hydrocephalus. -drain still in place 3. Associated findings of multiple ischemic infarcts affecting bilateral basal ganglia and thalamus as well as the medulla, both acute on chronic 4. Acute respiratory failure secondary to the above -patient remains ventilator dependent 5. Chronic hypertension: -Good control on Cardene drip -begin transition to orals and wean off drip 6. Systemic inflammatory response syndrome rule out impending sepsis secondary to the above -continue abx, f/u cultures -ID consult ? 7. Neurogenic dysphagia on NG tube feedings Continue ICU micromanagement and supportive care Palliative care consult? Further interventions per course CC time >40mins Result Diagram: 12/26/18 0449 12/26/18 0449 Results 24hrs Laboratory Tests Test 12/26/18 04:49 12/26/18 07:00 White Blood Count 6.6 # Red Blood Count 3.94 L Hemoglobin 10.2 L Hematocrit 33.1 L Mean Corpuscular Volume 84.0 Mean Corpuscular Hemoglobin 25.9 L Mean Corpuscular Hemoglobin Concent 30.8 L Red Cell Distribution Width 16.5 H Platelet Count 163 Mean Platelet Volume 10.1 Immature Granulocytes % 0.300 Neutrophils % 80.8 H Lymphocytes % 10.7 L Monocytes % 8.0 Eosinophils % 0.0 Basophils % 0.2 Nucleated Red Blood Cells % 0.0 Immature Granulocytes # 0.020 Neutrophils # 5.3 Lymphocytes # 0.7 L Monocytes # 0.5 Eosinophils # 0.0 Basophils # 0.0 Nucleated Red Blood Cells # 0.0 Sodium Level 144 Potassium Level 3.6 Chloride Level 114 H Carbon Dioxide Level 26 Anion Gap 4 L Blood Urea Nitrogen 19 Creatinine 0.82 Est Glomerular Filtrat Rate mL/min > 60 Glucose Level 129 Calcium Level 8.4 Phosphorus Level 2.3 L Magnesium Level 2.1 Blood Gas Specimen Source Blood arterial Arterial Blood Date Drawn 12/26/2018 7:14:46 AM Arterial Blood pH (Temp corrected) 7.392 Arterial Blood pCO2 (Temp correct) 40.3 Arterial Blood pO2 (Temp corrected) 76.4 L Arterial Blood HCO3 24.0 Arterial Blood Base Excess -0.9 Arterial Blood Oxygen Saturation 95.0 Say Test ACCEPTAB Arterial Blood Gas Puncture Site Left Radial Arterial Blood Carboxyhemoglobin 0.1 Arterial Blood Methemoglobin 0.2 Blood Gas A-a O2 Differential 126.3 H Oxyhemoglobin Percent 94.7 Blood Gas Temperature 37.0 Blood Gas Respiration Rate 16.0 Blood Gas Actual Respiration Rate 20 Blood Gas Modality VENT - AC FiO2 35.0 Blood Gas Tidal Volume 500.0 Blood Gas Low PEEP Setting 5.0 Blood Gas Notified Whom TM Blood Gas Notified Time 12/26/2018 7:26:49 AM Subjective 24 Hr Interval Summary Subjective hx not possible: pt non-verbal, pt critical status Exam/Review of Systems Exam Vitals Vital Signs Date Temp Pulse Resp B/P (MAP) Pulse Ox O2 O2 Flow FiO2 Time Delivery Rate 12/26/18 69 15 120/71 95 08:15 (87) 12/26/18 99.0 Mechanical 08:00 Ventilator 12/26/18 35 05:37 Intake and Output 12/25/18 12/25/18 12/26/18 1515:00 23:00 07:00 IntakeIntake Total 1510 ml 1410 ml 1420 ml OutputOutput Total 426 ml 612 ml 766 ml BalanceBalance 1084 ml 798 ml 654 ml Exam Constitutional: Patient unresponsive on ventilator support, not following commands or tracking), Psych: other (unable to assess) Head: normocephalic, surgical site with keo and dried old blood and drain Eyes: Pupils 1mm, equal but non reactive No icteric ENMT: ET intubated tovent Respiratory: diminished breath sounds No labored breathing Cardiovascular: regular rate and rhythm, No murmurs/extra sounds Gastrointestinal: soft, non-tender, bowel sounds, other NGT Genitourinary -male: nl external genitalia, mild scrotal edema Extremities: no edema Neurological: No nl mental status, No nl speech, No nl strength, no response to sternal rub or stimulation of the feet Results Results 24hrs Laboratory Tests Test 12/26/18 04:49 12/26/18 07:00 White Blood Count 6.6 # Red Blood Count 3.94 L Hemoglobin 10.2 L Hematocrit 33.1 L Mean Corpuscular Volume 84.0 Mean Corpuscular Hemoglobin 25.9 L Mean Corpuscular Hemoglobin Concent 30.8 L Red Cell Distribution Width 16.5 H Platelet Count 163 Mean Platelet Volume 10.1 Immature Granulocytes % 0.300 Neutrophils % 80.8 H Lymphocytes % 10.7 L Monocytes % 8.0 Eosinophils % 0.0 Basophils % 0.2 Nucleated Red Blood Cells % 0.0 Immature Granulocytes # 0.020 Neutrophils # 5.3 Lymphocytes # 0.7 L Monocytes # 0.5 Eosinophils # 0.0 Basophils # 0.0 Nucleated Red Blood Cells # 0.0 Sodium Level 144 Potassium Level 3.6 Chloride Level 114 H Carbon Dioxide Level 26 Anion Gap 4 L Blood Urea Nitrogen 19 Creatinine 0.82 Est Glomerular Filtrat Rate mL/min > 60 Glucose Level 129 Calcium Level 8.4 Phosphorus Level 2.3 L Magnesium Level 2.1 Blood Gas Specimen Source Blood arterial Arterial Blood Date Drawn 12/26/2018 7:14:46 AM Arterial Blood pH (Temp corrected) 7.392 Arterial Blood pCO2 (Temp correct) 40.3 Arterial Blood pO2 (Temp corrected) 76.4 L Arterial Blood HCO3 24.0 Arterial Blood Base Excess -0.9 Arterial Blood Oxygen Saturation 95.0 Say Test ACCEPTAB Arterial Blood Gas Puncture Site Left Radial Arterial Blood Carboxyhemoglobin 0.1 Arterial Blood Methemoglobin 0.2 Blood Gas A-a O2 Differential 126.3 H Oxyhemoglobin Percent 94.7 Blood Gas Temperature 37.0 Blood Gas Respiration Rate 16.0 Blood Gas Actual Respiration Rate 20 Blood Gas Modality VENT - AC FiO2 35.0 Blood Gas Tidal Volume 500.0 Blood Gas Low PEEP Setting 5.0 Blood Gas Notified Whom TM Blood Gas Notified Time 12/26/2018 7:26:49 AM Imaging Imaging PROCEDURE: MRI Brain without contrast. CLINICAL INDICATION: Follow-up stroke and hemorrhage TECHNIQUE: An MRI of the brain was performed on a high resolution hi- definition MRI scanner utilizing the following sequences: Sagittal and axial T1 weighted, axial T2 weighted, coronal GRE, axial diffusion weighted with ADC mapping, coronal GRE, and axial FLAIR. COMPARISON: CT brain 12/24/2018, 12/23/2018 and 12/22/2018 FINDINGS: The scalp and calvarium are remarkable for right transfrontal ventriculostomy with tip superimposed over the region of the right foramen of [place]. Mild amount of hemorrhage is noted coursing along the right ventriculostomy tract with a djacent vasogenic edema. The bilateral orbits are normal. The bilateral paranasal sinuses demonstrate chronic mucosal thickening in the bilateral frontal, ethmoid and maxillary and sphenoid sinuses. The bilateral mastoid air cells demonstrate small amount of fluid present in the left greater than right mastoid. The bilateral middle ear cavities are clear. The patient is again noted to be status post right occipital craniectomy and cranioplasty for evacuation and decompression of the right cerebellar hematoma. This hematoma measures approximately 4 cm transverse by 2.4 cm AP by 2.5 cm in superior inferior dimensions. The right cerebellar hematoma extends into the vermis and the left inferior cerebellar hemisphere. In addition decompression of hemorrhage is noted into the fourth ventricle which is displaced to the left and mildly effaced. Surrounding vasogenic edema is noted in the right cerebellum and vermis and the posterior medulla. Edema extends into the right barb jose. Mass effect on the right quadrigeminal plate cistern and the ambient cistern is noted with upward herniation of the vermis effacing the brain stem and quadrigeminal plate. Intraventricular hemorrhage extends and involves the bilateral lateral ventricles and the third ventricle. In the left posterior body of the lateral ventricle is the presence of a 1.8 cm hematoma. Mild to moderate hydrocephalus is noted with the bifrontal horn diameter currently 3.4 cm decreased from prior study. On the diffusion weighted sequences, restricted diffusion is noted in the right superior vermis and the posterior bilateral medulla compatible with acute ischemic infarcts Hypointensity is seen on the GRE sequences along the right frontal ventriculostomy tract , bilateral lateral, the third and the fourth ventricles. In addition hypointensity compatible with hemorrhage is again noted in the right cerebellar hemisphere, the vermis and the left inferior cerebellum. This compatible with above described hemorrhage. On the FLAIR and T2-weighted sequences, extensive ovoid foci of hyperintensity are noted in the bilateral subcortical white matter, centrum semiovale and periventricular white matter compatible with moderate chronic microvascular ischemic disease. Hyperintensity is also noted in the bilateral basal ganglia and the right thalamus compatible with bilateral chronic basal ganglia and right thalamic lacunar infarcts. The pneumocephalus previously noted is resolved. No midline shift or herniation is present. No evidence for extra-axial fluid collections are present. Normal flow voids are visible in the proximal intracranial arteries and dural sinuses, indicating patency. IMPRESSION: 1. Acute right superior vermis and bilateral posterior medullary ischemic infarcts 2. Right transfrontal ventriculostomy with surrounding hemorrhage. 3. Stat post right occipital craniectomy and cranioplasty changes for decompression of previously described hematoma. Residual right cerebellar hematoma measuring approximately 2.4 cm AP by 4 cm transverse by 2.5 cm in superior inferior dimensions. 4. Decompression of hemorrhage into the ventricular system with hemorrhage in the bilateral lateral third and fourth ventricles and moderate hydrocephalus unchanged. 5. Moderate chronic microvascular ischemic disease and diffuse volume loss 6. Chronic bilateral basal ganglia and right thalamic infarcts 7. Chronic ischemia extending into the right cerebral peduncle and barb jose as well as the posterior medulla. Critical finding A call report was made to Mariann Turcios at 12/26/2018 8:30:41 AM following the completion of the examination by the undersigned. RPTAT: HDC .Francheska Weston MD, MD Date Time Electronically viewed and signed by .Francheska Weston MD, MD on 12/26/2018 08:32 .C/ CC: JOVANI MCGARRY MD [id number] PROCEDURE: XR Chest. CLINICAL INDICATION: Chest pain. TECHNIQUE: AP Portable chest. COMPARISON: Chest x-ray 12/24/2018, 12/22/2018, and a 07/16/2014 FINDINGS: The soft tissues and bones are remarkable for endotracheal tube 5.9 cm above the [place]. An enteric tube is noted in the stomach. The patient is status post median sternotomy . No focal infiltrates, masses, or effusions are noted. The mediastinum and heart are remarkable for a vascular calcifications of the thoracic aorta and borderline cardiomegaly. Mild cardiogenic pulmonary venous hypertension is present. No pneumothorax is present. IMPRESSION: 1. Tubes as indicated above without pneumothorax 2. Mild cardiogenic pulmonary venous hypertension 3. Borderline cardiomegaly and mild atherosclerotic vascular disease 4. Status post median sternotomy changes RPTAT: HD .Francheska Weston MD, MD Date Time Electronically viewed and signed by .Francheska Weston MD, on 12/26/2018 08:49 .C/ CC: ARMANDO HENSLEY MD, [facility] [id number] Medications Medication Current Medications Labetalol HCl (Labetalol) 20 mg Q20M PRN IV ELEVATED BLOOD PRESSURE Last administered on 12/22/18at 17:44; Admin Dose 20 MG; Start 12/22/18 at 17:30 Ondansetron HCl (Zofran Inj) 4 mg Q6H PRN IV NAUSEA AND/OR VOMITING Last administered on 12/23/18at 05:15; Admin Dose 4 MG; Start 12/22/18 at 23:00 Albuterol (Ventolin Hfa) 4 puff Q2H RESP THERAPY PRN INH SHORTNESS OF BREATH; Start 12/22/18 at 23:00 Ipratropium [place] (Atrovent Hfa) 4 puff Q2H RESP THERAPY PRN INH SHORTNESS OF BREATH; Start 12/22/18 at 23:00 Acetaminophen (Tylenol Supp) 650 mg Q4H PRN [place] PAIN LEVEL 1-3 OR FEVER Last administered on 12/24/18 20:34; Admin Dose 650 MG; Start 12/22/18 at 23:00 Propofol 100 ml @ 2.387 mls/ hr PER PROTOCOL IV ; Start 12/22/18 at 23:00 Diphenhydramine HCl (Benadryl) 25 mg Q6H PRN IV ITCHING; Start 12/23/18 at 00:00 Morphine Sulfate (morphine) 2 mg Q2H PRN IV SEVERE PAIN LEVEL 7-10 Last administered on 12/23/18 13:26; Admin Dose 2 MG; Start 12/23/18 at 09:30 Lansoprazole (Prevacid) 30 mg DAILY@06 PO Last administered on 12/26/18 05:22; Admin Dose 30 MG; Start 12/26/18 at 06:00 Nicardipine HCl 50 mg/Sodium Chloride 500 ml @ 50 mls/hr TITRATE IV Last administered on 12/26/18 06:51; Admin Dose 110 MLS/HR; Start 12/25/18 at 20:00 Levetiracetam 100 ml @ 400 mls/hr Q12 IVPB Last administered on 12/26/18 08:43; Admin Dose 400 MLS/HR; Start 12/25/18 at 23:00 Lorazepam (Ativan) 1 mg [id number] PRN IV SEIZURES Last administered on 12/25/18at 22:55; Admin Dose 1 MG; Start 12/25/18 at 23:00 Acetaminophen (Tylenol Liquid) 650 mg Q4H PRN NGT MILD PAIN(1-3)OR ELEVATED TEMP Last administered on 12/26/18 05:02; Admin Dose 650 MG; Start 12/26/18 at 05:00 Vancomycin HCl (Vanco Iv Per Pharmacy) VANCOMYCIN PER PHARMACY PER PROTOCOL XX ; Start 12/26/18 at 05:30 Piperacillin Sod/ Tazobactam Sod 100 ml @ 200 mls/hr Q6 IVPB Last administered on 7/23/19at 06:24; Admin Dose 200 MLS/HR; Start 12/26/18 at 06:00 Vancomycin HCl 250 ml @ 125 mls/hr Q12H IVPB ; Start 12/26/18 at 18:00 MICHAEL GOTTLIEB Dec 26, 2018 10:27
--- NOTE | 2018-12-26 10:33 | CONS ---
Assessment/Plan Assessment/Plan Assessment/Plan (Daily) Chest x-ray was reviewed from today which is essentially clear. Ventilator setting; AC of 16, tidal volume 500, PEEP of 5, 40% FiO2. Patient is currently on Cardene drip. Assessment and recommendations; 1. Patient admitted with intracranial bleed status post parietal craniectomy and placement of ventriculostomy. Mental status remains extremely poor. MRI from yesterday showing multiple CVAs. 2. History of hypertension. 3. Mild anemia and thrombocytopenia. 4. Prior CABG. Continue current supportive care. Consider stopping antibiotics. Prognosis appears extremely poor. 35 minutes of critical care time was spent evaluating patient. Consultation Date/Type/Reason Admit Date/Time Dec 22, 2018 at 23:55 Initial Consult Date Type of Consult Pulmonary/critical care Patient's condition is critical. Remains profoundly unresponsive. Patient however has remained hemodynamically stable. General exam; elderly male, orally intubated, unresponsive, currently in no distress. Reason for Consultation H EENT exam; supple neck, no JVD. No lymphadenopathy. Midline trachea. No thyromegaly. Right parietal drain in place. Orogastric tube in place. Chest exam; diminished but clear breath sounds. S1-S2 audible, no murmurs. Regular rhythm. There is a well-healed sternal scar. Abdomen exam; soft, mildly protuberant. No organomegaly. Bowel sounds are audible. Extremity exam; no peripheral edema clubbing. DRESSAGE JUDGE exam; patient remains unresponsive. Date/Time of Note DATE: 12/26/18 TIME: 10:30 Exam/Review of Systems Exam Vitals Vital Signs Date Temp Pulse Resp B/P (MAP) Pulse Ox O2 O2 Flow FiO2 Time Delivery Rate 12/26/18 66 20 112/68 97 09:45 (83) 12/26/18 Mechanical 09:00 Ventilator 12/26/18 99.0 08:00 12/26/18 35 05:37 Intake and Output 12/25/18 12/25/18 12/26/18 1515:00 23:00 07:00 IntakeIntake Total 1510 ml 1410 ml 1420 ml OutputOutput Total 426 ml 612 ml 766 ml BalanceBalance 1084 ml 798 ml 654 ml Results Result Diagram: 12/26/18 0449 12/26/18 0449 Results 24hrs Laboratory Tests Test 7/23/19 04:49 12/26/18 07:00 White Blood Count 6.6 # Red Blood Count 3.94 L Hemoglobin 10.2 L Hematocrit 33.1 L Mean Corpuscular Volume 84.0 Mean Corpuscular Hemoglobin 25.9 L Mean Corpuscular Hemoglobin Concent 30.8 L Red Cell Distribution Width 16.5 H Platelet Count 163 Mean Platelet Volume 10.1 Immature Granulocytes % 0.300 Neutrophils % 80.8 H Lymphocytes % 10.7 L Monocytes % 8.0 Eosinophils % 0.0 Basophils % 0.2 Nucleated Red Blood Cells % 0.0 Immature Granulocytes # 0.020 Neutrophils # 5.3 Lymphocytes # 0.7 L Monocytes # 0.5 Eosinophils # 0.0 Basophils # 0.0 Nucleated Red Blood Cells # 0.0 Sodium Level 144 Potassium Level 3.6 Chloride Level 114 H Carbon Dioxide Level 26 Anion Gap 4 L Blood Urea Nitrogen 19 Creatinine 0.82 Est Glomerular Filtrat Rate mL/min > 60 Glucose Level 129 Calcium Level 8.4 Phosphorus Level 2.3 L Magnesium Level 2.1 Blood Gas Specimen Source Blood arterial Arterial Blood Date Drawn 12/26/2018 7:14:46 AM Arterial Blood pH (Temp corrected) 7.392 Arterial Blood pCO2 (Temp correct) 40.3 Arterial Blood pO2 (Temp corrected) 76.4 L Arterial Blood HCO3 24.0 Arterial Blood Base Excess -0.9 Arterial Blood Oxygen Saturation 95.0 Say Test ACCEPTAB Arterial Blood Gas Puncture Site Left Radial Arterial Blood Carboxyhemoglobin 0.1 Arterial Blood Methemoglobin 0.2 Blood Gas A-a O2 Differential 126.3 H Oxyhemoglobin Percent 94.7 Blood Gas Temperature 37.0 Blood Gas Respiration Rate 16.0 Blood Gas Actual Respiration Rate 20 Blood Gas Modality VENT - AC FiO2 35.0 Blood Gas Tidal Volume 500.0 Blood Gas Low PEEP Setting 5.0 Blood Gas Notified Whom TM Blood Gas Notified Time 12/26/2018 7:26:49 AM Medications Medication Current Medications Labetalol HCl (Labetalol) 20 mg Q20M PRN IV ELEVATED BLOOD PRESSURE Last administered on 12/22/18at 17:44; Admin Dose 20 MG; Start 12/22/18 at 17:30 Ondansetron HCl (Zofran Inj) 4 mg Q6H PRN IV NAUSEA AND/OR VOMITING Last administered on 12/23/18at 05:15; Admin Dose 4 MG; Start 12/22/18 at 23:00 Albuterol (Ventolin Hfa) 4 puff Q2H RESP THERAPY PRN INH SHORTNESS OF BREATH; Start 12/22/18 at 23:00 Ipratropium [place] (Atrovent Hfa) 4 puff Q2H RESP THERAPY PRN INH SHORTNESS OF BREATH; Start 12/22/18 at 23:00 Acetaminophen (Tylenol Supp) 650 mg Q4H PRN ID PAIN LEVEL 1-3 OR FEVER Last administered on 12/24/18at 20:34; Admin Dose 650 MG; Start 12/22/18 at 23:00 Propofol 100 ml @ 2.387 mls/ hr PER PROTOCOL IV ; Start 12/22/18 at 23:00 Diphenhydramine HCl (Benadryl) 25 mg Q6H PRN IV ITCHING; Start 12/23/18 at 00:00 Morphine Sulfate (morphine) 2 mg Q2H PRN IV SEVERE PAIN LEVEL 7-10 Last administered on 12/23/18 13:26; Admin Dose 2 MG; Start 12/23/18 at 09:30 Lansoprazole (Prevacid) 30 mg DAILY@06 PO Last administered on 12/26/18 05:22; Admin Dose 30 MG; Start 12/26/18 at 06:00 Nicardipine HCl 50 mg/Sodium Chloride 500 ml @ 50 mls/hr TITRATE IV Last administered on 12/26/18 06:51; Admin Dose 110 MLS/HR; Start 12/25/18 at 20:00 Levetiracetam 100 ml @ 400 mls/hr Q12 IVPB Last administered on 12/26/18 08:43; Admin Dose 400 MLS/HR; Start 12/25/18 at 23:00 Lorazepam (Ativan) 1 mg [id number] PRN IV SEIZURES Last administered on 12/25/18at 22:55; Admin Dose 1 MG; Start 12/25/18 at 23:00 Acetaminophen (Tylenol Liquid) 650 mg Q4H PRN NGT MILD PAIN(1-3)OR ELEVATED TEMP Last administered on 12/26/18 05:02; Admin Dose 650 MG; Start 12/26/18 at 05:00 Vancomycin HCl (Vanco Iv Per Pharmacy) VANCOMYCIN PER PHARMACY PER PROTOCOL XX ; Start 12/26/18 at 05:30 Piperacillin Sod/ Tazobactam Sod 100 ml @ 200 mls/hr Q6 IVPB Last administered on 12/26/18at 06:24; Admin Dose 200 MLS/HR; Start 12/26/18 at 06:00 Vancomycin HCl 250 ml @ 125 mls/hr Q12H IVPB ; Start 12/26/18 at 18:00 GOYO GRAVES Dec 26, 2018 10:33
[2018-12-26] MEDS: METOPROLOL 25 MG TAB PO SCH ×2 (11:49→21:22)
[2018-12-26] MEDS ORDERED: POTASSIUM PHOSPHATE 15 MM in SOD CHLORIDE 0.9% 250 ML IVPB ONE (12:00)
--- NOTE | 2018-12-26 13:20 | CONSI ---
Assessment/Plan Assessment/Plan Assessment/Plan (Recall) 63 M c/ reported Hx of CAD s/p CABG, who presents for evaluation of severe headache. Found to have a large R cerebellar hemorrhage...requiring occipital craniectomy and EVD placement.. CTA head is without obvious vascular malformation/aneurysm. MRI brain certainly confirms acute infarcts melba-hematoma...however, the burden of ischemia is small, and likely the direct result of compression.. Notable are chronic lacunes as well... His prognosis for meaningful neurologic recovery is uncertain, and presently guarded... P: Continued BP control to goal SBP < 160 Continue to limit sedating medications where possible Avoid antiplatelets/anticoagulants in the short-term Keppra is not presently indicated.. Post-op management per neurosurgery Other management and supportive care per primary Will follow clinically Consultation Date/Type/Reason Admit Date/Time Dec 22, 2018 at 23:55 Type of Consult Neurology Reason for Consultation [facility] Requesting Provider: MICHAEL GOTTLIEB Date/Time of Note DATE: 12/26/18 TIME: 13:08 Hx of Present Illness Patient is comatose, unable to contribute a Hx. It is elsewhere noted: Patient is a 63-year-old male with a history of hypertension, dyslipidemia, CAD with CABG who presented to ER complaining of severe diffuse headache that started while he was at the friend's house. Note that information is gathered from chart review and from the ER physician. When he presented to ER, he became unresponsive requiring intubation. Head CT shows Large right cerebellar hemorrhage extending into the ventricles. Initial blood pressure was 235/125. Patient takes aspirin. Patient was taken to the OR emergently and underwent craniectomy with right frontal ventriculostomy placement.. Subjective hx not possible: pt non-verbal, pt critical Objective Exam Vitals Vital Signs Date Temp Pulse Resp B/P (MAP) Pulse Ox O2 O2 Flow FiO2 Time Delivery Rate 12/26/18 60 14 99/61 (74) 97 12:30 12/26/18 98.9 Mechanical 12:00 Ventilator 12/26/18 35 08:00 Intake and Output 12/25/18 12/25/18 12/26/18 1515:00 23:00 07:00 IntakeIntake Total 1510 ml 1410 ml 1470 ml OutputOutput Total 426 ml 612 ml 841 ml BalanceBalance 1084 ml 798 ml 629 ml Exam PE: Gen Appearance: No Apparent Distress HEENT: Intubated Cardiovascular: Regular rate Abdomen: Soft Extremities: Dry NE: The patient was comatose. Cranial nerve examination was limited by mental status. Pupils were equal and reactive to light. There was no afferent pupillary defect. Funduscopic examination was limited. Face was grossly symmetric, w/ present corneal and cough reflexes. Tone was normal. Muscle bulk was normal. I did not see fasciculations. The patient withdrew to noxious stimulation x 4. Coordination and gait testing was limited by mental status. Arm and leg reflexes were within normal limits and symmetric. Hu's sign was absent. Plantar responses were flexor. Results Result Diagram: 12/26/189 12/26/18 0449 Results 24hrs Laboratory Tests Test 12/26/18 04:49 12/26/18 07:00 White Blood Count 6.6 # Red Blood Count 3.94 L Hemoglobin 10.2 L Hematocrit 33.1 L Mean Corpuscular Volume 84.0 Mean Corpuscular Hemoglobin 25.9 L Mean Corpuscular Hemoglobin Concent 30.8 L Red Cell Distribution Width 16.5 H Platelet Count 163 Mean Platelet Volume 10.1 Immature Granulocytes % 0.300 Neutrophils % 80.8 H Lymphocytes % 10.7 L Monocytes % 8.0 Eosinophils % 0.0 Basophils % 0.2 Nucleated Red Blood Cells % 0.0 Immature Granulocytes # 0.020 Neutrophils # 5.3 Lymphocytes # 0.7 L Monocytes # 0.5 Eosinophils # 0.0 Basophils # 0.0 Nucleated Red Blood Cells # 0.0 Sodium Level 144 Potassium Level 3.6 Chloride Level 114 H Carbon Dioxide Level 26 Anion Gap 4 L Blood Urea Nitrogen 19 Creatinine 0.82 Est Glomerular Filtrat Rate mL/min > 60 Glucose Level 129 Calcium Level 8.4 Phosphorus Level 2.3 L Magnesium Level 2.1 Blood Gas Specimen Source Blood arterial Arterial Blood Date Drawn 12/26/2018 7:14:46 AM Arterial Blood pH (Temp corrected) 7.392 Arterial Blood pCO2 (Temp correct) 40.3 Arterial Blood pO2 (Temp corrected) 76.4 L Arterial Blood HCO3 24.0 Arterial Blood Base Excess -0.9 Arterial Blood Oxygen Saturation 95.0 Say Test ACCEPTAB Arterial Blood Gas Puncture Site Left Radial Arterial Blood Carboxyhemoglobin 0.1 Arterial Blood Methemoglobin 0.2 Blood Gas A-a O2 Differential 126.3 H Oxyhemoglobin Percent 94.7 Blood Gas Temperature 37.0 Blood Gas Respiration Rate 16.0 Blood Gas Actual Respiration Rate 20 Blood Gas Modality VENT - AC FiO2 35.0 Blood Gas Tidal Volume 500.0 Blood Gas Low PEEP Setting 5.0 Blood Gas Notified Whom TM Blood Gas Notified Time 12/26/2018 7:26:49 AM Past Medical History CAD s/p CABG Home Meds Reported Medications Metoprolol Tartrate* (Lopressor*) 50 Mg Tab, 50 MG PO BID, #60 TAB 12/23/18 Aspirin* (Aspirin* Chew) 81 Mg Tab.chew, 81 MG PO DAILY, TAB.CHEW 12/23/18 Atorvastatin* (Atorvastatin*) 80 Mg Tablet, 80 MG PO QHS, #30 TAB 12/23/18 Donepezil* (Donepezil*) 5 Mg Tablet, 5 MG PO DAILY, #30 TAB 12/23/18 Medications Current Medications Labetalol HCl (Labetalol) 20 mg Q20M PRN IV ELEVATED BLOOD PRESSURE Last administered on 12/22/18at 17:44; Admin Dose 20 MG; Start 12/22/18 at 17:30 Ondansetron HCl (Zofran Inj) 4 mg Q6H PRN IV NAUSEA AND/OR VOMITING Last administered on 12/23/18at 05:15; Admin Dose 4 MG; Start 12/22/18 at 23:00 Albuterol (Ventolin Hfa) 4 puff Q2H RESP THERAPY PRN INH SHORTNESS OF BREATH; Start 12/22/18 at 23:00 Ipratropium [place] (Atrovent Hfa) 4 puff Q2H RESP THERAPY PRN INH SHORTNESS OF BREATH; Start 12/22/18 at 23:00 Acetaminophen (Tylenol Supp) 650 mg Q4H PRN [place] PAIN LEVEL 1-3 OR FEVER Last administered on 12/24/18at 20:34; Admin Dose 650 MG; Start 12/22/18 at 23:00 Propofol 100 ml @ 2.387 mls/ hr PER PROTOCOL IV ; Start 12/22/18 at 23:00 Diphenhydramine HCl (Benadryl) 25 mg Q6H PRN IV ITCHING; Start 12/23/18 at 00:00 Morphine Sulfate (morphine) 2 mg Q2H PRN IV SEVERE PAIN LEVEL 7-10 Last administered on 12/23/18 13:26; Admin Dose 2 MG; Start 12/23/18 at 09:30 Lansoprazole (Prevacid) 30 mg DAILY@06 PO Last administered on 12/26/18 05:22; Admin Dose 30 MG; Start 12/26/18 at 06:00 Nicardipine HCl 50 mg/Sodium Chloride 500 ml @ 50 mls/hr TITRATE IV Last administered on 12/26/18 11:43; Admin Dose 100 MLS/HR; Start 12/25/18 at 20:00 Levetiracetam 100 ml @ 400 mls/hr Q12 IVPB Last administered on 12/26/18 08:43; Admin Dose 400 MLS/HR; Start 12/25/18 at 23:00 Lorazepam (Ativan) 1 mg [id number] PRN IV SEIZURES Last administered on 12/25/18 22:55; Admin Dose 1 MG; Start 12/25/18 at 23:00 Acetaminophen (Tylenol Liquid) 650 mg Q4H PRN NGT MILD PAIN(1-3)OR ELEVATED TEMP Last administered on 12/26/18 05:02; Admin Dose 650 MG; Start 12/26/18 at 05:00 Vancomycin HCl (Vanco Iv Per Pharmacy) VANCOMYCIN PER PHARMACY PER PROTOCOL XX ; Start 12/26/18 at 05:30 Piperacillin Sod/ Tazobactam Sod 100 ml @ 200 mls/hr Q6 IVPB Last administered on 12/26/18 11:40; Admin Dose 200 MLS/HR; Start 12/26/18 at 06:00 Vancomycin HCl 250 ml @ 125 mls/hr Q12H IVPB ; Start 12/26/18 at 18:00 Metoprolol Tartrate (Lopressor) 25 mg BID PO Last administered on 12/26/18 11:49; Admin Dose 25 MG; Start 12/26/18 at 11:00 Potassium Phosphate 15 mm/ Sodium Chloride 255 ml @ 63.75 mls/ hr ONCE ONCE IVPB Last administered on 12/26/18 11:48; Admin Dose 63.75 MLS/HR; Start 12/26/18 at 12:00; Stop 12/26/18 at 15:59 Allergies: Coded Allergies: Unknown: Unable to obtain (Unverified , 12/22/18) Social History Smoking Status: Current every day smoker TONIA BALDWIN Dec 26, 2018 13:19
[2018-12-26] MEDS: VANCOMYCIN 1 GM 250 ML IVPB SCH (18:43)
[2018-12-26] MEDS: LORAZEPAM 2 MG INJ IV PRN ×2 (18:47→21:22)
[2018-12-27] VITALS (99 sets, daily range): BP systolic 114–155; BP diastolic 68–97; PULSE 63–101; RESP 13–33
[2018-12-27] MEDS: PIPER-TAZO 3.375 GM IV (PMX) 100 ML IVPB SCH ×3 (05:05→17:21)
[2018-12-27] MEDS: LANSOPRAZOLE 30 MG CAP PO SCH (05:54)
[2018-12-27] MEDS: VANCOMYCIN 1 GM 250 ML IVPB SCH ×2 (05:54→18:33)
[2018-12-27] MEDS ORDERED: POTASSIUM CHLORIDE 20 MEQ POWDER FOR ORAL SOLN GTB ONE (06:00)
[2018-12-27] MEDS: niCARdipine 50 MG in SOD CHLORIDE 0.9% 480 ML IV SCH ×3 (06:25→20:28)
--- NOTE | 2018-12-27 07:29 | PN ---
Date/Time of Note Date/Time of Note DATE: 12/27/18 TIME: 07:24 Assessment/Plan VTE Prophylaxis Risk score (from Ns)>0 risk: 16 SCD applied (from Ns): Yes Pharmacological prophylaxis: NA/contraindicated Pharm contraindication: hemorrhagic infarct Lines/Catheters IV Catheter Type (from Nrs): Peripheral IV Urinary Cath still in place: Yes Reason Cath still needed: terminal illness/intractable pain Assessment/Plan Hospital Course 63-year-old male with a past medical history of high blood pressure only who presented to the emergency room with sudden onset of fever headache and collapse in the emergency room was found to have large right cerebellar hemorrhage extending into the ventricles and was emergently rushed to the operating room for suboccipital craniectomy for evacuation of hematoma with right frontal ventriculostomy. He has been managed postoperatively in the ICU as follows: 1. Acute encephalopathy secondary to #2 -no change -Patient has poor long-term overall prognosis, family updated on consult, wi ll continue to follow, continue current management 2. 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 -MRI continues to show residual right cerebellar hematoma and moderate bilateral hydrocephalus. -drain still in place -per neurology, Keppra not indicated, dc? 3. Associated findings of multiple ischemic infarcts affecting bilateral basal ganglia and thalamus as well as the medulla, both acute on chronic 4. Acute respiratory failure secondary to the above -patient remains ventilator dependent, mild increase in O2 requirements overnight 5. Chronic hypertension: -Good control on Cardene drip -begin transition to orals and wean off drip 6. Systemic inflammatory response syndrome rule out impending sepsis secondary to the above -continue abx for now, blood cultures negative so far -fever curve improving, monitor 7. Neurogenic dysphagia on NG tube feedings Continue ICU micromanagement and supportive care Palliative care consult pending Further interventions per course CC time >40mins Result Diagram: 12/27/18 0435 12/27/18 0435 Results 24hrs Laboratory Tests Test 12/27/18 04:35 White Blood Count 7.0 Red Blood Count 4.08 L Hemoglobin 10.3 L Hematocrit 34.0 L Mean Corpuscular Volume 83.3 Mean Corpuscular Hemoglobin 25.2 L Mean Corpuscular Hemoglobin Concent 30.3 L Red Cell Distribution Width 16.4 H Platelet Count 189 Mean Platelet Volume 10.5 H Immature Granulocytes % 0.300 Neutrophils % 82.3 H Lymphocytes % 9.3 L Monocytes % 7.0 Eosinophils % 0.7 Basophils % 0.4 Nucleated Red Blood Cells % 0.0 Immature Granulocytes # 0.020 Neutrophils # 5.7 Lymphocytes # 0.7 L Monocytes # 0.5 Eosinophils # 0.1 Basophils # 0.0 Nucleated Red Blood Cells # 0.0 Sodium Level 145 H Potassium Level 3.4 L Chloride Level 112 H Carbon Dioxide Level 28 Anion Gap 5 Blood Urea Nitrogen 18 Creatinine 0.81 Est Glomerular Filtrat Rate mL/min > 60 Glucose Level 121 Calcium Level 8.7 Phosphorus Level 2.8 Magnesium Level 2.0 Total Bilirubin 0.5 Direct Bilirubin 0.00 Indirect Bilirubin 0.5 Aspartate Amino Transf (AST/SGOT) 42 Alanine Aminotransferase (ALT/SGPT) 33 Alkaline Phosphatase 80 Total Protein 6.4 Albumin 3.0 L Globulin 3.40 H Albumin/Globulin Ratio 0.88 Subjective 24 Hr Interval Summary Subjective hx not possible: pt critical, pt critical status Exam/Review of Systems Exam Vitals Vital Signs Date Temp Pulse Resp B/P (MAP) Pulse Ox O2 O2 Flow FiO2 Time Delivery Rate 12/27/18 90 20 133/78 96 06:45 (96) 12/27/18 Mechanical 06:00 Ventilator 12/27/18 40 05:33 12/27/18 99.0 04:00 Intake and Output 12/26/18 12/26/18 12/27/18 1515:00 23:00 07:00 IntakeIntake Total 1527.50 ml 1095 ml 912 ml OutputOutput Total 562 ml 1007 ml 1278 ml BalanceBalance 965.50 ml 88 ml -366 ml Exam Constitutional: Patient remains unresponsive on ventilator support, not following commands or tracking), Psych: other (unable to assess) Head: normocephalic, surgical site with keo and dried old blood and drain Eyes: Pupils 1mm, equal and reactive No icteric ENMT: ET intubated tovent Respiratory: diminished breath sounds No labored breathing Cardiovascular: regular rate and rhythm, No murmurs/extra sounds Gastrointestinal: soft, non-tender, bowel sounds, other NGT Genitourinary -male: nl external genitalia, mild scrotal edema Extremities: no edema Neurological: No nl mental status, No nl speech, No nl strength, no response to sternal rub Results Results 24hrs Laboratory Tests Test 12/27/18 04:35 White Blood Count 7.0 Red Blood Count 4.08 L Hemoglobin 10.3 L Hematocrit 34.0 L Mean Corpuscular Volume 83.3 Mean Corpuscular Hemoglobin 25.2 L Mean Corpuscular Hemoglobin Concent 30.3 L Red Cell Distribution Width 16.4 H Platelet Count 189 Mean Platelet Volume 10.5 H Immature Granulocytes % 0.300 Neutrophils % 82.3 H Lymphocytes % 9.3 L Monocytes % 7.0 Eosinophils % 0.7 Basophils % 0.4 Nucleated Red Blood Cells % 0.0 Immature Granulocytes # 0.020 Neutrophils # 5.7 Lymphocytes # 0.7 L Monocytes # 0.5 Eosinophils # 0.1 Basophils # 0.0 Nucleated Red Blood Cells # 0.0 Sodium Level 145 H Potassium Level 3.4 L Chloride Level 112 H Carbon Dioxide Level 28 Anion Gap 5 Blood Urea Nitrogen 18 Creatinine 0.81 Est Glomerular Filtrat Rate mL/min > 60 Glucose Level 121 Calcium Level 8.7 Phosphorus Level 2.8 Magnesium Level 2.0 Total Bilirubin 0.5 Direct Bilirubin 0.00 Indirect Bilirubin 0.5 Aspartate Amino Transf (AST/SGOT) 42 Alanine Aminotransferase (ALT/SGPT) 33 Alkaline Phosphatase 80 Total Protein 6.4 Albumin 3.0 L Globulin 3.40 H Albumin/Globulin Ratio 0.88 Medications Medication Current Medications Labetalol HCl (Labetalol) 20 mg Q20M PRN IV ELEVATED BLOOD PRESSURE Last administered on 12/22/18at 17:44; Admin Dose 20 MG; Start 12/22/18 at 17:30 Ondansetron HCl (Zofran Inj) 4 mg Q6H PRN IV NAUSEA AND/OR VOMITING Last adm inistered on 12/23/18at 05:15; Admin Dose 4 MG; Start 12/22/18 at 23:00 Albuterol (Ventolin Hfa) 4 puff Q2H RESP THERAPY PRN INH SHORTNESS OF BREATH; Start 12/22/18 at 23:00 Ipratropium [place] (Atrovent Hfa) 4 puff Q2H RESP THERAPY PRN INH SHORTNESS OF BREATH; Start 12/22/18 at 23:00 Acetaminophen (Tylenol Supp) 650 mg Q4H PRN ID PAIN LEVEL 1-3 OR FEVER Last administered on 12/24/18 20:34; Admin Dose 650 MG; Start 12/22/18 at 23:00 Propofol 100 ml @ 2.387 mls/ hr PER PROTOCOL IV ; Start 12/22/18 at 23:00 Diphenhydramine HCl (Benadryl) 25 mg Q6H PRN IV ITCHING; Start 12/23/18 at 00:00 Morphine Sulfate (morphine) 2 mg Q2H PRN IV SEVERE PAIN LEVEL 7-10 Last administered on 12/23/18at 13:26; Admin Dose 2 MG; Start 12/23/18 at 09:30 Lansoprazole (Prevacid) 30 mg DAILY@06 PO Last administered on 12/27/18 05:54; Admin Dose 30 MG; Start 12/26/18 at 06:00 Nicardipine HCl 50 mg/Sodium Chloride 500 ml @ 50 mls/hr TITRATE IV Last administered on 12/27/18 06:25; Admin Dose 100 MLS/HR; Start 12/25/18 at 20:00 Levetiracetam 100 ml @ 400 mls/hr Q12 IVPB Last administered on 12/26/18 20 :45; Admin Dose 400 MLS/HR; Start 12/25/18 at 23:00 Lorazepam (Ativan) 1 mg [id number] PRN IV SEIZURES Last administered on 12/26/18 21:22; Admin Dose 1 MG; Start 12/25/18 at 23:00 Acetaminophen (Tylenol Liquid) 650 mg Q4H PRN NGT MILD PAIN(1-3)OR ELEVATED TEMP Last administered on 12/26/18 05:02; Admin Dose 650 MG; Start 12/26/18 at 05:00 Vancomycin HCl (Vanco Iv Per Pharmacy) VANCOMYCIN PER PHARMACY PER PROTOCOL XX ; Start 12/26/18 at 05:30 Piperacillin Sod/ Tazobactam Sod 100 ml @ 200 mls/hr Q6 IVPB Last administered on 12/27/18 05:05; Admin Dose 200 MLS/HR; Start 12/26/18 at 06:00 Vancomycin HCl 250 ml @ 125 mls/hr Q12H IVPB Last administered on 12/27/18 05:54; Admin Dose 125 MLS/HR; Start 12/26/18 at 18:00 Metoprolol Tartrate (Lopressor) 25 mg BID PO Last administered on 12/26/18at 21:22; Admin Dose 25 MG; Start 12/26/18 at 11:00 MICHAEL GOTTLIEB Dec 27, 2018 07:29
[2018-12-27] MEDS: LEVETIRACETAM 1000 MG (PMX) 100 ML IVPB SCH ×2 (08:31→20:35)
[2018-12-27] MEDS: METOPROLOL 25 MG TAB PO SCH (08:32)
--- NOTE | 2018-12-27 09:10 | CONS ---
Assessment/Plan Assessment/Plan Assessment/Plan (Daily) Ventilator setting; AC of 16, tidal volume 500, PEEP of 5, 40% FiO2. Assessment and recommendations; next 1. Patient admitted with altered mental status due to intracranial bleed. Status post craniotomy with placement of ventriculostomy. Patient exhibiting profound encephalopathy. 2. History of prior CABG 3. History of hypertension 4. Mild anemia and thrombocytopenia. 5. Very mild hypernatremia. Continue current supportive care. Prognosis appears extremely poor. Consider stopping antibiotics. 35 minutes of critical care time was spent evaluating patient. Consultation Date/Type/Reason Admit Date/Time Dec 22, 2018 at 23:55 Initial Consult Date Type of Consult Pulmonary/critical care Patient's condition is critical. Remains profoundly unresponsive. Patient however has remained hemodynamically stable. General exam; elderly male, orally intubated, unresponsive, currently in no distress. Requesting Provider: MICHAEL GOTTLIEB Date/Time of Note DATE: 12/27/18 TIME: 09:07 24 HR Interval Summary Free Text/Dictation Patient's condition remains extremely critical. Remains profoundly unresponsive. General exam; elderly male, unresponsive, orally intubated. Exam/Review of Systems Exam Vitals Vital Signs Date Temp Pulse Resp B/P (MAP) Pulse Ox O2 O2 Flow FiO2 Time Delivery Rate 12/27/18 93 17 130/70 96 08:30 (90) 12/27/18 99.5 08:00 12/27/18 40 07:46 12/27/18 Mechanical 06:00 Ventilator Intake and Output 12/26/18 12/26/18 12/27/18 1515:00 23:00 07:00 IntakeIntake Total 1577.50 ml 1245 ml 912 ml OutputOutput Total 687 ml 1332 ml 1278 ml BalanceBalance 890.50 ml -87 ml -366 ml Exam H EENT exam; supple neck, no JVD. No lymphadenopathy. Midline trachea. No thyromegaly. Right ventricle ostomy in place. Orogastric tube in place. Patient has fair dentition. Pupils are small bilaterally. Chest exam; clear to auscultation. S1-S2 audible, no murmurs. Regular rhythm. There is a well-healed sternal scar. Abdomen exam; soft, no organomegaly. Bowel sounds are audible. Extremity exam; no peripheral edema. Pulses 1+. [employer] exam; patient remains profoundly unresponsive. Results Result Diagram: 12/27/18 0435 12/27/18 0435 Results 24hrs Laboratory Tests Test 12/27/18 04:35 White Blood Count 7.0 Red Blood Count 4.08 L Hemoglobin 10.3 L Hematocrit 34.0 L Mean Corpuscular Volume 83.3 Mean Corpuscular Hemoglobin 25.2 L Mean Corpuscular Hemoglobin Concent 30.3 L Red Cell Distribution Width 16.4 H Platelet Count 189 Mean Platelet Volume 10.5 H Immature Granulocytes % 0.300 Neutrophils % 82.3 H Lymphocytes % 9.3 L Monocytes % 7.0 Eosinophils % 0.7 Basophils % 0.4 Nucleated Red Blood Cells % 0.0 Immature Granulocytes # 0.020 Neutrophils # 5.7 Lymphocytes # 0.7 L Monocytes # 0.5 Eosinophils # 0.1 Basophils # 0.0 Nucleated Red Blood Cells # 0.0 Sodium Level 145 H Potassium Level 3.4 L Chloride Level 112 H Carbon Dioxide Level 28 Anion Gap 5 Blood Urea Nitrogen 18 Creatinine 0.81 Est Glomerular Filtrat Rate mL/min > 60 Glucose Level 121 Calcium Level 8.7 Phosphorus Level 2.8 Magnesium Level 2.0 Total Bilirubin 0.5 Direct Bilirubin 0.00 Indirect Bilirubin 0.5 Aspartate Amino Transf (AST/SGOT) 42 Alanine Aminotransferase (ALT/SGPT) 33 Alkaline Phosphatase 80 Total Protein 6.4 Albumin 3.0 L Globulin 3.40 H Albumin/Globulin Ratio 0.88 Medications Medication Current Medications Labetalol HCl (Labetalol) 20 mg Q20M PRN IV ELEVATED BLOOD PRESSURE Last administered on 12/22/18at 17:44; Admin Dose 20 MG; Start 12/22/18 at 17:30 Ondansetron HCl (Zofran Inj) 4 mg Q6H PRN IV NAUSEA AND/OR VOMITING Last administered on 12/23/18at 05:15; Admin Dose 4 MG; Start 12/22/18 at 23:00 Albuterol (Ventolin Hfa) 4 puff Q2H RESP THERAPY PRN INH SHORTNESS OF BREATH; Start 12/22/18 at 23:00 Ipratropium [place] (Atrovent Hfa) 4 puff Q2H RESP THERAPY PRN INH SHORTNESS OF BREATH; Start 12/22/18 at 23:00 Acetaminophen (Tylenol Supp) 650 mg Q4H PRN [place] PAIN LEVEL 1-3 OR FEVER Last administered on 12/24/18 20:34; Admin Dose 650 MG; Start 12/22/18 at 23:00 Propofol 100 ml @ 2.387 mls/ hr PER PROTOCOL IV ; Start 12/22/18 at 23:00 Diphenhydramine HCl (Benadryl) 25 mg Q6H PRN IV ITCHING; Start 12/23/18 at 00:00 Morphine Sulfate (morphine) 2 mg Q2H PRN IV SEVERE PAIN LEVEL 7-10 Last ad ministered on 12/23/18at 13:26; Admin Dose 2 MG; Start 12/23/18 at 09:30 Lansoprazole (Prevacid) 30 mg DAILY@06 PO Last administered on 12/27/18 05:54; Admin Dose 30 MG; Start 12/26/18 at 06:00 Nicardipine HCl 50 mg/Sodium Chloride 500 ml @ 50 mls/hr TITRATE IV Last administered on 12/27/18 06:25; Admin Dose 100 MLS/HR; Start 12/25/18 at 20:00 Levetiracetam 100 ml @ 400 mls/hr Q12 IVPB Last administered on 12/27/18 08:31; Admin Dose 400 MLS/HR; Start 12/25/18 at 23:00 Lorazepam (Ativan) 1 mg [id number] PRN IV SEIZURES Last administered on 12/26/18 21:22; Admin Dose 1 MG; Start 12/25/18 at 23:00 Acetaminophen (Tylenol Liquid) 650 mg Q4H PRN NGT MILD PAIN(1-3)OR ELEVATED TEMP Last administered on 12/26/18at 05:02; Admin Dose 650 MG; Start 12/26/18 at 05:00 Vancomycin HCl (Vanco Iv Per Pharmacy) VANCOMYCIN PER PHARMACY PER PROTOCOL XX ; Start 12/26/18 at 05:30 Piperacillin Sod/ Tazobactam Sod 100 ml @ 200 mls/hr Q6 IVPB Last administered on 12/27/18 05:05; Admin Dose 200 MLS/HR; Start 12/26/18 at 06:00 Vancomycin HCl 250 ml @ 125 mls/hr Q12H IVPB Last administered on 12/27/18 05:54; Admin Dose 125 MLS/HR; Start 12/26/18 at 18:00 Metoprolol Tartrate (Lopressor) 25 mg BID PO Last administered on 12/27/18at 08:32; Admin Dose 25 MG; Start 12/26/18 at 11:00 GOYO GRAVES Dec 27, 2018 09:10
--- NOTE | 2018-12-27 09:22 | CONS ---
Assessment/Plan Assessment/Plan Assessment/Plan (Recall) 63 M c/ reported Hx of CAD s/p CABG, who presents for evaluation of severe headache. Found to have a large R cerebellar hemorrhage...requiring occipital craniectomy and EVD placement.. CTA head is without obvious vascular malformation/aneurysm. MRI brain certainly confirms acute infarcts melba-hematoma...however, the burden of ischemia is small, and likely the direct result of compression.. Notable are chronic lacunes as well... His prognosis for meaningful neurologic recovery is uncertain, and presently guarded... Now w/ frequent, episodic abnl truncal movements suspicious for hiccups P: Repeat Head CT for surveillance EEG to exclude epileptiform activity Continued BP control to goal SBP < 160 Continue to limit sedating medications where possible Avoid antiplatelets/anticoagulants in the short-term Keppra is not presently indicated Post-op management per neurosurgery Other management and supportive care per primary Will follow clinically Consultation Date/Type/Reason Admit Date/Time Dec 22, 2018 at 23:55 Type of Consult Neurology Reason for Consultation [facility] Requesting Provider: MICHAEL GOTTLIEB Date/Time of Note DATE: 12/27/18 TIME: 09:18 24 HR Interval Summary Free Text/Dictation Hiccups Exam/Review of Systems Exam Vitals Vital Signs Date Temp Pulse Resp B/P (MAP) Pulse Ox O2 O2 Flow FiO2 Time Delivery Rate 12/27/18 93 17 130/70 96 08:30 (90) 12/27/18 99.5 08:00 12/27/18 40 07:46 12/27/18 Mechanical 06:00 Ventilator Intake and Output 12/26/18 12/26/18 12/27/18 1515:00 23:00 07:00 IntakeIntake Total 1577.50 ml 1245 ml 912 ml OutputOutput Total 687 ml 1332 ml 1278 ml BalanceBalance 890.50 ml -87 ml -366 ml Results Result Diagram: 12/27/18 0435 12/27/18 0435 Results 24hrs Laboratory Tests Test 12/27/18 04:35 White Blood Count 7.0 Red Blood Count 4.08 L Hemoglobin 10.3 L Hematocrit 34.0 L Mean Corpuscular Volume 83.3 Mean Corpuscular Hemoglobin 25.2 L Mean Corpuscular Hemoglobin Concent 30.3 L Red Cell Distribution Width 16.4 H Platelet Count 189 Mean Platelet Volume 10.5 H Immature Granulocytes % 0.300 Neutrophils % 82.3 H Lymphocytes % 9.3 L Monocytes % 7.0 Eosinophils % 0.7 Basophils % 0.4 Nucleated Red Blood Cells % 0.0 Immature Granulocytes # 0.020 Neutrophils # 5.7 Lymphocytes # 0.7 L Monocytes # 0.5 Eosinophils # 0.1 Basophils # 0.0 Nucleated Red Blood Cells # 0.0 Sodium Level 145 H Potassium Level 3.4 L Chloride Level 112 H Carbon Dioxide Level 28 Anion Gap 5 Blood Urea Nitrogen 18 Creatinine 0.81 Est Glomerular Filtrat Rate mL/min > 60 Glucose Level 121 Calcium Level 8.7 Phosphorus Level 2.8 Magnesium Level 2.0 Total Bilirubin 0.5 Direct Bilirubin 0.00 Indirect Bilirubin 0.5 Aspartate Amino Transf (AST/SGOT) 42 Alanine Aminotransferase (ALT/SGPT) 33 Alkaline Phosphatase 80 Total Protein 6.4 Albumin 3.0 L Globulin 3.40 H Albumin/Globulin Ratio 0.88 Medications Medication Current Medications Labetalol HCl (Labetalol) 20 mg Q20M PRN IV ELEVATED BLOOD PRESSURE Last admi nistered on 12/22/18at 17:44; Admin Dose 20 MG; Start 12/22/18 at 17:30 Ondansetron HCl (Zofran Inj) 4 mg Q6H PRN IV NAUSEA AND/OR VOMITING Last administered on 12/23/18at 05:15; Admin Dose 4 MG; Start 12/22/18 at 23:00 Albuterol (Ventolin Hfa) 4 puff Q2H RESP THERAPY PRN INH SHORTNESS OF BREATH; Start 12/22/18 at 23:00 Ipratropium [place] (Atrovent Hfa) 4 puff Q2H RESP THERAPY PRN INH SHORTNESS OF BREATH; Start 12/22/18 at 23:00 Acetaminophen (Tylenol Supp) 650 mg Q4H PRN [place] PAIN LEVEL 1-3 OR FEVER Last administered on 12/24/18at 20:34; Admin Dose 650 MG; Start 12/22/18 at 23:00 Propofol 100 ml @ 2.387 mls/ hr PER PROTOCOL IV ; Start 12/22/18 at 23:00 Diphenhydramine HCl (Benadryl) 25 mg Q6H PRN IV ITCHING; Start 12/23/18 at 00:00 Morphine Sulfate (morphine) 2 mg Q2H PRN IV SEVERE PAIN LEVEL 7-10 Last administered on 12/23/18 13:26; Admin Dose 2 MG; Start 12/23/18 at 09:30 Lansoprazole (Prevacid) 30 mg DAILY@06 PO Last administered on 12/27/18 05:54; Admin Dose 30 MG; Start 12/26/18 at 06:00 Nicardipine HCl 50 mg/Sodium Chloride 500 ml @ 50 mls/hr TITRATE IV Last administered on 12/27/18 06:25; Admin Dose 100 MLS/HR; Start 12/25/18 at 20:00 Levetiracetam 100 ml @ 400 mls/hr Q12 IVPB Last administered on 12/27/18 08:31; Admin Dose 400 MLS/HR; Start 12/25/18 at 23:00 Lorazepam (Ativan) 1 mg [id number] PRN IV SEIZURES Last administered on 12/26/18 21:22; Admin Dose 1 MG; Start 12/25/18 at 23:00 Acetaminophen (Tylenol Liquid) 650 mg Q4H PRN NGT MILD PAIN(1-3)OR ELEVATED TEMP Last administered on 12/26/18 05:02; Admin Dose 650 MG; Start 12/26/18 at 05:00 Vancomycin HCl (Vanco Iv Per Pharmacy) VANCOMYCIN PER PHARMACY PER PROTOCOL XX ; Start 12/26/18 at 05:30 Piperacillin Sod/ Tazobactam Sod 100 ml @ 200 mls/hr Q6 IVPB Last administered on 12/27/18 05:05; Admin Dose 200 MLS/HR; Start 12/26/18 at 06:00 Vancomycin HCl 250 ml @ 125 mls/hr Q12H IVPB Last administered on 12/27/18 05:54; Admin Dose 125 MLS/HR; Start 12/26/18 at 18:00 Metoprolol Tartrate (Lopressor) 25 mg BID PO Last administered on 12/27/18 08:32; Admin Dose 25 MG; Start 12/26/18 at 11:00 TONIA BALDWIN Dec 27, 2018 09:22
--- NOTE | 2018-12-27 15:28 | CONS ---
Assessment/Plan Assessment/Plan Assessment/Plan (Daily) Acute encephalopathy secondary to right cerebellar hematoma status post occipital craniectomy and cranioplasty with placement of right frontal ventriculostomy 12/23/2018 Associated findings of multiple ischemic infarcts affecting the basal ganglia bilaterally thalamus and medulla Acute respiratory failure on ventilator Past history of chronic hypertension SIRS Long discussion with patient's and sister confirm the fact that patient would not want to live in a condition other than his prior physical and cognitive condition. I did not ask him to change the CODE STATUS or address changing anything having to do with level of care. Will be meeting with other family members tomorrow at 1230. Consultation Date/Type/Reason Admit Date/Time Dec 22, 2018 at 23:55 Date/Time of Note DATE: 12/27/18 TIME: 15:28 Hx of Present Illness Reviewing medical records this is a 63-year-old gentleman who was admitted to [facility] on 12/22/2018 after he developed sudden onset of severe headache presented to the emergency room unresponsive to rule required immediate intubation had CT scan done at time showed a right cerebral hemorrhage he was hypertensive to 230 systolic. Other comorbid medical problems included hypertension dyslipidemia coronary heart disease status post coronary artery bypass graft. Patient remains in the intensive care unit intubated status post right occipital cranial ectomy and cranioplasty for depression with placement of right frontal ventriculoscopy on 720 MRI continues to show residual right cerebellar hematoma and moderate bilateral hydrocephalus. Unfortunately other associated complications include multiple ischemic infarcts affecting bilateral basal ganglia and thalamus as well as mid [place] acute and chronic Past Medical History Home Meds Reported Medications Metoprolol Tartrate* (Lopressor*) 50 Mg Tab, 50 MG PO BID, #60 TAB 12/23/18 Aspirin* (Aspirin* Chew) 81 Mg Tab.chew, 81 MG PO DAILY, TAB.CHEW 12/23/18 Atorvastatin* (Atorvastatin*) 80 Mg Tablet, 80 MG PO QHS, #30 TAB 12/23/18 Donepezil* (Donepezil*) 5 Mg Tablet, 5 MG PO DAILY, #30 TAB 12/23/18 Medications Current Medications Labetalol HCl (Labetalol) 20 mg Q20M PRN IV ELEVATED BLOOD PRESSURE Last administered on 12/22/18at 17:44; Admin Dose 20 MG; Start 12/22/18 at 17:30 Ondansetron HCl (Zofran Inj) 4 mg Q6H PRN IV NAUSEA AND/OR VOMITING Last administered on 12/23/18 05:15; Admin Dose 4 MG; Start 12/22/18 at 23:00 Albuterol (Ventolin Hfa) 4 puff Q2H RESP THERAPY PRN INH SHORTNESS OF BREATH; Start 12/22/18 at 23:00 Ipratropium [place] (Atrovent Hfa) 4 puff Q2H RESP THERAPY PRN INH SHORTNESS OF BREATH; Start 12/22/18 at 23:00 Acetaminophen (Tylenol Supp) 650 mg Q4H PRN [place] PAIN LEVEL 1-3 OR FEVER Last administered on 12/24/18 20:34; Admin Dose 650 MG; Start 12/22/18 at 23:00 Propofol 100 ml @ 2.387 mls/ hr PER PROTOCOL IV ; Start 12/22/18 at 23:00 Diphenhydramine HCl (Benadryl) 25 mg Q6H PRN IV ITCHING; Start 12/23/18 at 00:00 Morphine Sulfate (morphine) 2 mg Q2H PRN IV SEVERE PAIN LEVEL 7-10 Last administered on 12/23/18 13:26; Admin Dose 2 MG; Start 12/23/18 at 09:30 Lansoprazole (Prevacid) 30 mg DAILY@06 PO Last administered on 12/27/18 05:54; Admin Dose 30 MG; Start 12/26/18 at 06:00 Nicardipine HCl 50 mg/Sodium Chloride 500 ml @ 50 mls/hr TITRATE IV Last administered on 12/27/18 11:59; Admin Dose 100 MLS/HR; Start 12/25/18 at 20:00 Levetiracetam 100 ml @ 400 mls/hr Q12 IVPB Last administered on 12/27/18 08:31; Admin Dose 400 MLS/HR; Start 12/25/18 at 23:00 Lorazepam (Ativan) 1 mg [id number] PRN IV SEIZURES Last administered on 12/26/18 21:22; Admin Dose 1 MG; Start 12/25/18 at 23:00 Acetaminophen (Tylenol Liquid) 650 mg Q4H PRN NGT MILD PAIN(1-3)OR ELEVATED TEMP Last administered on 12/26/18 05:02; Admin Dose 650 MG; Start 12/26/18 at 05:00 Vancomycin HCl (Vanco Iv Per Pharmacy) VANCOMYCIN PER PHARMACY PER PROTOCOL XX ; Start 12/26/18 at 05:30 Piperacillin Sod/ Tazobactam Sod 100 ml @ 200 mls/hr Q6 IVPB Last administered on 12/27/18at 12:02; Admin Dose 200 MLS/HR; Start 12/26/18 at 06:00 Vancomycin HCl 250 ml @ 125 mls/hr Q12H IVPB Last administered on 12/27/18at 05:54; Admin Dose 125 MLS/HR; Start 12/26/18 at 18:00 Metoprolol Tartrate (Lopressor) 25 mg BID PO Last administered on 12/27/18at 08: 32; Admin Dose 25 MG; Start 12/26/18 at 11:00 Allergies: Coded Allergies: Unknown: Unable to obtain (Unverified , 12/22/18) Social History Smoking Status: Current every day smoker Exam/Review of Systems Exam Vitals Vital Signs Date Temp Pulse Resp B/P (MAP) Pulse Ox O2 O2 Flow FiO2 Time Delivery Rate 12/27/18 89 21 97 40 13:19 12/27/18 138/83 12:15 (101) 12/27/18 99.0 12:00 12/27/18 Mechanical 06:00 Ventilator Intake and Output 12/26/18 12/26/18 12/27/18 1515:00 23:00 07:00 IntakeIntake Total 1577.50 ml 1245 ml 1062 ml OutputOutput Total 687 ml 1332 ml 1528 ml BalanceBalance 890.50 ml -87 ml -466 ml Results Result Diagram: 12/27/18 0435 12/27/18 0435 Results 24hrs Laboratory Tests Test 12/27/18 04:35 White Blood Count 7.0 Red Blood Count 4.08 L Hemoglobin 10.3 L Hematocrit 34.0 L Mean Corpuscular Volume 83.3 Mean Corpuscular Hemoglobin 25.2 L Mean Corpuscular Hemoglobin Concent 30.3 L Red Cell Distribution Width 16.4 H Platelet Count 189 Mean Platelet Volume 10.5 H Immature Granulocytes % 0.300 Neutrophils % 82.3 H Lymphocytes % 9.3 L Monocytes % 7.0 Eosinophils % 0.7 Basophils % 0.4 Nucleated Red Blood Cells % 0.0 Immature Granulocytes # 0.020 Neutrophils # 5.7 Lymphocytes # 0.7 L Monocytes # 0.5 Eosinophils # 0.1 Basophils # 0.0 Nucleated Red Blood Cells # 0.0 Sodium Level 145 H Potassium Level 3.4 L Chloride Level 112 H Carbon Dioxide Level 28 Anion Gap 5 Blood Urea Nitrogen 18 Creatinine 0.81 Est Glomerular Filtrat Rate mL/min > 60 Glucose Level 121 Calcium Level 8.7 Phosphorus Level 2.8 Magnesium Level 2.0 Total Bilirubin 0.5 Direct Bilirubin 0.00 Indirect Bilirubin 0.5 Aspartate Amino Transf (AST/SGOT) 42 Alanine Aminotransferase (ALT/SGPT) 33 Alkaline Phosphatase 80 Total Protein 6.4 Albumin 3.0 L Globulin 3.40 H Albumin/Globulin Ratio 0.88 Medications Medication Current Medications Labetalol HCl (Labetalol) 20 mg Q20M PRN IV ELEVATED BLOOD PRESSURE Last administered on 12/22/18 17:44; Admin Dose 20 MG; Start 12/22/18 at 17:30 Ondansetron HCl (Zofran Inj) 4 mg Q6H PRN IV NAUSEA AND/OR VOMITING Last administered on 12/23/18 05:15; Admin Dose 4 MG; Start 12/22/18 at 23:00 Albuterol (Ventolin Hfa) 4 puff Q2H RESP THERAPY PRN INH SHORTNESS OF BREATH; Start 12/22/18 at 23:00 Ipratropium [place] (Atrovent Hfa) 4 puff Q2H RESP THERAPY PRN INH SHORTNESS OF BREATH; Start 12/22/18 at 23:00 Acetaminophen (Tylenol Supp) 650 mg Q4H PRN [place] PAIN LEVEL 1-3 OR FEVER Last administered on 12/24/18 20:34; Admin Dose 650 MG; Start 12/22/18 at 23:00 Propofol 100 ml @ 2.387 mls/ hr PER PROTOCOL IV ; Start 12/22/18 at 23:00 Diphenhydramine HCl (Benadryl) 25 mg Q6H PRN IV ITCHING; Start 12/23/18 at 00:00 Morphine Sulfate (morphine) 2 mg Q2H PRN IV SEVERE PAIN LEVEL 7-10 Last admini stered on 12/23/18 13:26; Admin Dose 2 MG; Start 12/23/18 at 09:30 Lansoprazole (Prevacid) 30 mg DAILY@06 PO Last administered on 12/27/18 05:54; Admin Dose 30 MG; Start 12/26/18 at 06:00 Nicardipine HCl 50 mg/Sodium Chloride 500 ml @ 50 mls/hr TITRATE IV Last administered on 12/27/18 11:59; Admin Dose 100 MLS/HR; Start 12/25/18 at 20:00 Levetiracetam 100 ml @ 400 mls/hr Q12 IVPB Last administered on 12/27/18 08:31; Admin Dose 400 MLS/HR; Start 12/25/18 at 23:00 Lorazepam (Ativan) 1 mg [id number] PRN IV SEIZURES Last administered on 12/26/18 21:22; Admin Dose 1 MG; Start 12/25/18 at 23:00 Acetaminophen (Tylenol Liquid) 650 mg Q4H PRN NGT MILD PAIN(1-3)OR ELEVATED TEMP Last administered on 12/26/18 05:02; Admin Dose 650 MG; Start 12/26/18 at 05:00 Vancomycin HCl (Vanco Iv Per Pharmacy) VANCOMYCIN PER PHARMACY PER PROTOCOL XX ; Start 12/26/18 at 05:30 Piperacillin Sod/ Tazobactam Sod 100 ml @ 200 mls/hr Q6 IVPB Last administered on 12/27/18 12:02; Admin Dose 200 MLS/HR; Start 12/26/18 at 06:00 Vancomycin HCl 250 ml @ 125 mls/hr Q12H IVPB Last administered on 12/27/18 0 5:54; Admin Dose 125 MLS/HR; Start 12/26/18 at 18:00 Metoprolol Tartrate (Lopressor) 25 mg BID PO Last administered on 12/27/18 08:32; Admin Dose 25 MG; Start 12/26/18 at 11:00 ANGELES MILLER Dec 27, 2018 15:28
[2018-12-27] MEDS: POTASSIUM CHLORIDE 100 ML IVPB SCH ×2 (17:09→19:20)
--- NOTE | 2018-12-27 18:00 | PN ---
Date/Time of Note Date/Time of Note DATE: 12/27/18 TIME: 17:56 Assessment/Plan Lines/Catheters IV Catheter Type (from [facility]): Peripheral IV Chaidez in Place (from [facility]): Yes Assessment/Plan Chief Complaint/Hosp Course POD # 5 s/p suboccipital craniotomy for evacuation of hematoma/ EVD. Patient continues to do poorly. ICPs have been low. MRI brain stem infarcts co nfirmed. ICP low, draining clearer.Prognosis poor. Rec. family consider palliation and would not shunt unless family wish patient to cont. with likely very poor QoL. Cont. medical supportive care, EVD drainage for now. Subjective 24 Hr Interval Summary Subjective hx not possible: pt non-verbal Exam/Review of Systems Vital Signs Vitals Vital Signs Date Temp Pulse Resp B/P (MAP) Pulse Ox O2 O2 Flow FiO2 Time Delivery Rate 12/27/18 76 18 129/77 96 17:30 (94) 12/27/18 40 17:25 12/27/18 98.9 16:00 12/27/18 Mechanical 06:00 Ventilator Intake and Output 12/26/18 12/26/18 12/27/18 1515:00 23:00 07:00 IntakeIntake Total 1577.50 ml 1245 ml 1062 ml OutputOutput Total 687 ml 1332 ml 1528 ml BalanceBalance 890.50 ml -87 ml -466 ml Exam Neurological: unresponsive (no eye opening today. No spontaneous movements. Pupils 2mm minimally reactive, no oculocephalic or corneal relex.), other Results Result Diagram: 12/27/18 0435 12/27/18 1545 JOVANI MCGARRY MD Dec 27, 2018 18:00
[2018-12-27] MEDS: METOPROLOL 50 MG TAB PO SCH (20:35)
[2018-12-27] MEDS ORDERED: METOPROLOL 100 MG TAB NGT SCH (21:00)
[2018-12-28] VITALS (103 sets, daily range): BP systolic 111–147; BP diastolic 60–89; PULSE 63–95; RESP 13–30
[2018-12-28] MEDS: PIPER-TAZO 3.375 GM IV (PMX) 100 ML IVPB SCH ×4 (00:43→15:35)
[2018-12-28] MEDS: niCARdipine 50 MG in SOD CHLORIDE 0.9% 480 ML IV SCH ×5 (00:59→18:22)
[2018-12-28] MEDS: hydrALAzine 20 MG INJ IV PRN (01:32)
[2018-12-28] MEDS: ACETAMINOPHEN 650MG/20.3ML CUP NGT PRN ×2 (04:11→15:38)
[2018-12-28] MEDS: VANCOMYCIN 1.25 GM/NS 250 ML 250 ML IVPB SCH ×2 (05:15→18:07)
[2018-12-28] MEDS: LANSOPRAZOLE 30 MG CAP PO SCH (05:15)
--- NOTE | 2018-12-28 06:03 | EEG ---
EEG NOTE Report Details DATE OF TEST: 12/27/18 HISTORY: The patient is a 63-year-old M who presents episodic torso jerking. This EEG is requested to evaluate for seizures. SEDATION: None. CONDITIONS OF RECORDING: This EEG was recorded digitally on the [employer] On[employer] machine, using the [employer] 10-20 System of electrodes plus anterior temporals and [place]. STATES SAMPLED: Comatose. FINDINGS: The background is continuous. A well-formed posterior dominant rhythm is absent.. The remainder of the awake background is predominated by for polymorphic theta activity. Photic stimulation does not elicit any definite driving responses or epileptiform discharges. Hyperventilation was not performed. No epileptiform discharges were seen. IMPRESSION: Abnormal electroencephalogram due to: moderate diffuse slowing. COMMENT: The slowing of the background indicates moderate, diffuse cortical dysfunction of nonspecific etiology. TONIA BALDWIN Dec 28, 2018 06:03
[2018-12-28] MEDS: LEVETIRACETAM 1000 MG (PMX) 100 ML IVPB SCH ×2 (08:19→21:03)
[2018-12-28] MEDS: METOPROLOL 50 MG TAB PO SCH ×2 (08:20→21:03)
--- NOTE | 2018-12-28 08:58 | CONS ---
Assessment/Plan Assessment/Plan Assessment/Plan (Recall) 63 M c/ reported Hx of CAD s/p CABG, who presents for evaluation of severe headache. Found to have a large R cerebellar hemorrhage...requiring occipital craniectomy and EVD placement.. CTA head is without obvious vascular malformation/aneurysm. MRI brain certainly confirms acute infarcts melba-hematoma...however, the burden of ischemia is small, and likely the direct result of compression.. Notable are chronic lacunes as well... His prognosis for meaningful neurologic recovery is uncertain, and presently guarded... Now w/ frequent, episodic abnl truncal movements suspicious for hiccups Repeat head CT was without obvious acute intracranial pathology EEG is negative for epileptiform discharges P: Continued BP control to goal SBP < 160 Continue to limit sedating medications where possible Avoid antiplatelets/anticoagulants in the short-term Post-op management per neurosurgery Other management and supportive care per primary Will follow clinically Consultation Date/Type/Reason Admit Date/Time Dec 22, 2018 at 23:55 Type of Consult Neurology Reason for Consultation ICH Requesting Provider: MICHAEL GOTTLIEB Date/Time of Note DATE: 12/28/18 TIME: 08:55 24 HR Interval Summary Free Text/Dictation Continues icu care Exam/Review of Systems Exam Vitals Vital Signs Date Temp Pulse Resp B/P (MAP) Pulse Ox O2 O2 Flow FiO2 Time Delivery Rate 12/28/18 99.9 84 23 130/78 99 Mechanical 08:00 (95) Ventilator 12/28/18 40 07:20 Intake and Output 12/27/18 12/27/18 12/28/18 1515:00 23:00 07:00 IntakeIntake Total 1600 ml 2065 ml 1680 ml OutputOutput Total 2027 ml 1352 ml 1310 ml BalanceBalance -427 ml 713 ml 370 ml Exam PE: Gen Appearance: No Apparent Distress HEENT: Intubated Cardiovascular: Regular rate Abdomen: Soft Extremities: Dry NE: The patient was obtunded and nonverbal. Cranial nerve examination was limited by mental status. Pupils were equal and reactive to light. There was no afferent pupillary defect. Funduscopic examination was limited. Face was grossly symmetric, w/ present corneal and c ough reflexes. Tone was normal. Muscle bulk was normal. I did not see fasciculations. The patient opens his eyes to noxious. Coordination and gait testing was limited by mental status. Arm and leg reflexes were symmetric. Hu's sign was absent. Plantar responses were flexor. Results Result Diagram: 12/28/18 0442 12/28/18 0441 Results 24hrs Laboratory Tests Test 12/27/18 15:45 12/27/18 17:07 12/28/18 04:41 12/28/18 04:42 Sodium Level 141 144 Potassium Level 3.4 L 3.8 Chloride Level 109 111 H Carbon Dioxide Level 28 27 Anion Gap 4 L 6 Blood Urea Nitrogen 18 19 Creatinine 0.83 0.82 Est Glomerular > 60 > 60 Filtrat Rate mL/min Glucose Level 133 154 Calcium Level 8.8 8.7 Magnesium Level 2.0 Vancomycin Level 10.2 Trough White Blood Count 7.8 Red Blood Count 4.10 L Hemoglobin 10.4 L Hematocrit 33.9 L Mean Corpuscular 82.7 Volume Mean Corpuscular 25.4 L Hemoglobin Mean Corpuscular 30.7 L Hemoglobin Concent Red Cell 16.4 H Distribution Width Platelet Count 216 Mean Platelet Volume 9.8 Immature 0.300 Granulocytes % Neutrophils % 83.8 H Lymphocytes % 7.7 L Monocytes % 6.6 Eosinophils % 1.2 Basophils % 0.4 Nucleated Red Blood 0.0 Cells % Immature 0.020 Granulocytes # Neutrophils # 6.5 Lymphocytes # 0.6 L Monocytes # 0.5 Eosinophils # 0.1 Basophils # 0.0 Nucleated Red Blood 0.0 Cells # Medications Medication Current Medications Labetalol HCl (Labetalol) 20 mg Q20M PRN IV ELEVATED BLOOD PRESSURE Last administered on 12/22/18at 17:44; Admin Dose 20 MG; Start 12/22/18 at 17:30 Ondansetron HCl (Zofran Inj) 4 mg Q6H PRN IV NAUSEA AND/OR VOMITING Last administered on 12/23/18at 05:15; Admin Dose 4 MG; Start 12/22/18 at 23:00 Albuterol (Ventolin Hfa) 4 puff Q2H RESP THERAPY PRN INH SHORTNESS OF BREATH; Start 12/22/18 at 23:00 Ipratropium [place] (Atrovent Hfa) 4 puff Q2H RESP THERAPY PRN INH SHORTNESS OF BREATH; Start 12/22/18 at 23:00 Acetaminophen (Tylenol Supp) 650 mg Q4H PRN [place] PAIN LEVEL 1-3 OR FEVER Last administered on 12/24/18 20:34; Admin Dose 650 MG; Start 12/22/18 at 23:00 Propofol 100 ml @ 2.387 mls/ hr PER PROTOCOL IV ; Start 12/22/18 at 23:00 Diphenhydramine HCl (Benadryl) 25 mg Q6H PRN IV ITCHING; Start 12/23/18 at 00:00 Morphine Sulfate (morphine) 2 mg Q2H PRN IV SEVERE PAIN LEVEL 7-10 Last administered on 12/23/18at 13:26; Admin Dose 2 MG; Start 12/23/18 at 09:30 Lansoprazole (Prevacid) 30 mg DAILY@06 PO Last administered on 12/28/18 05:15; Admin Dose 30 MG; Start 12/26/18 at 06:00 Nicardipine HCl 50 mg/Sodium Chloride 500 ml @ 50 mls/hr TITRATE IV Last administered on 12/28/18 08:32; Admin Dose 150 MLS/HR; Start 12/25/18 at 20:00 Levetiracetam 100 ml @ 400 mls/hr Q12 IVPB Last administered on 12/28/18 08:19; Admin Dose 400 MLS/HR; Start 12/25/18 at 23:00 Lorazepam (Ativan) 1 mg [id number] PRN IV SEIZURES Last administered on 12/26/18 21:22; Admin Dose 1 MG; Start 12/25/18 at 23:00 Acetaminophen (Tylenol Liquid) 650 mg Q4H PRN NGT MILD PAIN(1-3)OR ELEVATED TE MP Last administered on 12/28/18at 04:11; Admin Dose 650 MG; Start 12/26/18 at 05:00 Vancomycin HCl (Vanco Iv Per Pharmacy) VANCOMYCIN PER PHARMACY PER PROTOCOL XX ; Start 12/26/18 at 05:30 Piperacillin Sod/ Tazobactam Sod 100 ml @ 200 mls/hr Q6 IVPB Last administered on 12/28/18 05:15; Admin Dose 200 MLS/HR; Start 12/26/18 at 06:00 Metoprolol Tartrate (Lopressor) 50 mg BID PO Last administered on 12/28/18 08:20; Admin Dose 50 MG; Start 12/27/18 at 21:00 Hydralazine HCl (Apresoline) 10 mg Q6H PRN IV SBP> 140 Last administered on 12/28/18at 01:32; Admin Dose 10 MG; Start 12/27/18 at 15:30 Hydralazine HCl (Apresoline) 25 mg BID NGT Last administered on 12/28/18 08:20; Admin Dose 25 MG; Start 12/27/18 at 16:00 Vancomycin/Sodium Chloride 250 ml @ 83.333 mls/ hr Q12H IVPB Last administered on 12/28/18at 05:15; Admin Dose 83.333 MLS/HR; Start 12/28/18 at 06:00 TONIA BALDWIN Dec 28, 2018 08:58
--- NOTE | 2018-12-28 08:59 | PN ---
Date/Time of Note Date/Time of Note DATE: 12/28/18 TIME: 08:53 Assessment/Plan VTE Prophylaxis Risk score (from Ns)>0 risk: 15 SCD applied (from Ns): Yes Pharmacological prophylaxis: NA/contraindicated Pharm contraindication: hemorrhagic infarct Lines/Catheters IV Catheter Type (from Nrsg): Peripheral IV Urinary Cath still in place: Yes Reason Cath still needed: terminal illness/intractable pain Assessment/Plan Hospital Course 63-year-old male with a past medical history of high blood pressure and chronic tobacco use only who presented to the emergency room with sudden onset of severe headache and collapse in the emergency room was found to have large right cerebellar hemorrhage extending into the ventricles and was emergently rushed to the operating room for suboccipital craniectomy for evacuation of hematoma with right frontal ventriculostomy. He has been managed postoperatively in the ICU as follows: 1. Acute encephalopathy secondary to #2 -no real change, though patient may have opened his eyes earlier -Patient has poor long-term overall prognosis, family updated on consult, will continue to follow, continue current management 2. 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 -MRI continues to show residual right cerebellar hematoma and moderate bilateral hydrocephalus. -drain still in place -per neurology, Keppra not indicated, dc? -may need shunt per nsg but will not change snf prognosis per notes, defer decision to neurosurgery and family 3. 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 Acute respiratory failure secondary to the above -patient remains ventilator dependent, mild increase in O2 requirements overnight 5. Chronic hypertension: -cardene weaning in process, good control 6. Systemic inflammatory response syndrome rule out impending sepsis secondary to the above -continue abx for now, repeat cultures, le dopplers to r/o DVT 7. Neurogenic dysphagia on NG tube feedings Continue ICU micromanagement and supportive care Spoke with consultants and reviewed all prev imaging Further interventions per course CC time >40mins Result Diagram: 12/28/18 0442 12/28/18 0441 Results 24hrs Laboratory Tests Test 12/27/18 15:45 12/27/18 17:07 12/28/18 04:41 12/28/18 04:42 Sodium Level 141 144 Potassium Level 3.4 L 3.8 Chloride Level 109 111 H Carbon Dioxide Level 28 27 Anion Gap 4 L 6 Blood Urea Nitrogen 18 19 Creatinine 0.83 0.82 Est Glomerular > 60 > 60 Filtrat Rate mL/min Glucose Level 133 154 Calcium Level 8.8 8.7 Magnesium Level 2.0 Vancomycin Level 10.2 Trough White Blood Count 7.8 Red Blood Count 4.10 L Hemoglobin 10.4 L Hematocrit 33.9 L Mean Corpuscular 82.7 Volume Mean Corpuscular 25.4 L Hemoglobin Mean Corpuscular 30.7 L Hemoglobin Concent Red Cell 16.4 H Distribution Width Platelet Count 216 Mean Platelet Volume 9.8 Immature 0.300 Granulocytes % Neutrophils % 83.8 H Lymphocytes % 7.7 L Monocytes % 6.6 Eosinophils % 1.2 Basophils % 0.4 Nucleated Red Blood 0.0 Cells % Immature 0.020 Granulocytes # Neutrophils # 6.5 Lymphocytes # 0.6 L Monocytes # 0.5 Eosinophils # 0.1 Basophils # 0.0 Nucleated Red Blood 0.0 Cells # Subjective 24 Hr Interval Summary Free Text/Dictation per neurology, patient may have opened his eyes earlier to stimulation spiking fevers again Subjective hx not possible: pt critical Exam/Review of Systems Exam Vitals Vital Signs Date Temp Pulse Resp B/P (MAP) Pulse Ox O2 O2 Flow FiO2 Time Delivery Rate 12/28/18 99.9 84 23 130/78 99 Mechanical 08:00 (95) Ventilator 12/28/18 40 07:20 Intake and Output 12/27/18 12/27/18 12/28/18 1414:59 22:59 06:59 IntakeIntake Total 1560 ml 2115 ml 1645 ml OutputOutput Total 2121 ml 1341 ml 1326 ml BalanceBalance -561 ml 774 ml 319 ml Exam Constitutional: Patient remains unresponsive on ventilator support, not following commands or tracking), Psych: other (unable to assess) Head: normocephalic, surgical site with keo and dried old blood and drain with serosanguineous fluid Eyes: Pupils 1mm, equal and reactive No icteric ENMT: ET intubated to vent Respiratory: diminished breath sounds No labored breathing Cardiovascular: regular rate and rhythm, systolic murmurs Gastrointestinal: soft, non-tender, bowel sounds, other NGT Genitourinary -male: nl external genitalia, mild scrotal edema Extremities: no edema Neurological: No nl mental status, No nl speech, No nl strength, no response to sternal rub Results Results 24hrs Laboratory Tests Test 12/27/18 15:45 12/27/18 17:07 12/28/18 04:41 12/28/18 04:42 Sodium Level 141 144 Potassium Level 3.4 L 3.8 Chloride Level 109 111 H Carbon Dioxide Level 28 27 Anion Gap 4 L 6 Blood Urea Nitrogen 18 19 Creatinine 0.83 0.82 Est Glomerular > 60 > 60 Filtrat Rate mL/min Glucose Level 133 154 Calcium Level 8.8 8.7 Magnesium Level 2.0 Vancomycin Level 10.2 Trough White Blood Count 7.8 Red Blood Count 4.10 L Hemoglobin 10.4 L Hematocrit 33.9 L Mean Corpuscular 82.7 Volume Mean Corpuscular 25.4 L Hemoglobin Mean Corpuscular 30.7 L Hemoglobin Concent Red Cell 16.4 H Distribution Width Platelet Count 216 Mean Platelet Volume 9.8 Immature 0.300 Granulocytes % Neutrophils % 83.8 H Lymphocytes % 7.7 L Monocytes % 6.6 Eosinophils % 1.2 Basophils % 0.4 Nucleated Red Blood 0.0 Cells % Immature 0.020 Granulocytes # Neutrophils # 6.5 Lymphocytes # 0.6 L Monocytes # 0.5 Eosinophils # 0.1 Basophils # 0.0 Nucleated Red Blood 0.0 Cells # Medications Medication Current Medications Labetalol HCl (Labetalol) 20 mg Q20M PRN IV ELEVATED BLOOD PRESSURE Last administered on 12/22/18at 17:44; Admin Dose 20 MG; Start 12/22/18 at 17:30 Ondansetron HCl (Zofran Inj) 4 mg Q6H PRN IV NAUSEA AND/OR VOMITING Last administered on 12/23/18at 05:15; Admin Dose 4 MG; Start 12/22/18 at 23:00 Albuterol (Ventolin Hfa) 4 puff Q2H RESP THERAPY PRN INH SHORTNESS OF BREATH; Start 12/22/18 at 23:00 Ipratropium [place] (Atrovent Hfa) 4 puff Q2H RESP THERAPY PRN INH SHORTNESS OF BREATH; Start 12/22/18 at 23:00 Acetaminophen (Tylenol Supp) 650 mg Q4H PRN [place] PAIN LEVEL 1-3 OR FEVER Last administered on 12/24/18at 20:34; Admin Dose 650 MG; Start 12/22/18 at 23:00 Propofol 100 ml @ 2.387 mls/ hr PER PROTOCOL IV ; Start 12/22/18 at 23:00 Diphenhydramine HCl (Benadryl) 25 mg Q6H PRN IV ITCHING; Start 12/23/18 at 00:00 Morphine Sulfate (morphine) 2 mg Q2H PRN IV SEVERE PAIN LEVEL 7-10 Last admi nistered on 12/23/18 13:26; Admin Dose 2 MG; Start 12/23/18 at 09:30 Lansoprazole (Prevacid) 30 mg DAILY@06 PO Last administered on 12/28/18 05:15; Admin Dose 30 MG; Start 12/26/18 at 06:00 Nicardipine HCl 50 mg/Sodium Chloride 500 ml @ 50 mls/hr TITRATE IV Last administered on 12/28/18 08:32; Admin Dose 150 MLS/HR; Start 12/25/18 at 20:00 Levetiracetam 100 ml @ 400 mls/hr Q12 IVPB Last administered on 12/28/18 08:19; Admin Dose 400 MLS/HR; Start 12/25/18 at 23:00 Lorazepam (Ativan) 1 mg [id number] PRN IV SEIZURES Last administered on 12/26/18 21:22; Admin Dose 1 MG; Start 12/25/18 at 23:00 Acetaminophen (Tylenol Liquid) 650 mg Q4H PRN NGT MILD PAIN(1-3)OR ELEVATED TEMP Last administered on 12/28/18 04:11; Admin Dose 650 MG; Start 12/26/18 at 05:00 Vancomycin HCl (Vanco Iv Per Pharmacy) VANCOMYCIN PER PHARMACY PER PROTOCOL XX ; Start 12/26/18 at 05:30 Piperacillin Sod/ Tazobactam Sod 100 ml @ 200 mls/hr Q6 IVPB Last administered on 12/28/18 05:15; Admin Dose 200 MLS/HR; Start 12/26/18 at 06:00 Metoprolol Tartrate (Lopressor) 50 mg BID PO Last administered on 12/28/18 08:20; Admin Dose 50 MG; Start 12/27/18 at 21:00 Hydralazine HCl (Apresoline) 10 mg Q6H PRN IV SBP> 140 Last administered on 12/28/18 01:32; Admin Dose 10 MG; Start 12/27/18 at 15:30 Hydralazine HCl (Apresoline) 25 mg BID NGT Last administered on 12/28/18at 08:20; Admin Dose 25 MG; Start 12/27/18 at 16:00 Vancomycin/Sodium Chloride 250 ml @ 83.333 mls/ hr Q12H IVPB Last administered on 12/28/18at 05:15; Admin Dose 83.333 MLS/HR; Start 12/28/18 at 06:00 MICHAEL GOTTLIEB Dec 28, 2018 08:59
--- NOTE | 2018-12-28 10:54 | CONS ---
Assessment/Plan Assessment/Plan Assessment/Plan (Daily) Acute encephalopathy secondary to right cerebellar hematoma status post occipital craniectomy and cranioplasty with placement of right frontal ventriculostomy 12/23/2018 Associated findings of multiple ischemic infarcts affecting the basal ganglia bilaterally thalamus and medulla Acute respiratory failure on ventilator Past history of chronic hypertension SIRS There is been no significant change in patient's overall neurological condition. Family members are at the bedside and family conference is scheduled today at 1230 with patient's son. Patient's daughter is on her way from [facility] and should be here by Tuesday therefore another meeting will be scheduled at that time. Patient's reiterated that she would not want to keep him on artificial life support. I reviewed medical records from neurology pulmonary medicine and internal medicine. Consultation Date/Type/Reason Admit Date/Time Dec 22, 2018 at 23:55 Initial Consult Date Requesting Provider: MICHAEL GOTTLIEB Date/Time of Note DATE: 12/28/18 TIME: 10:53 Exam/Review of Systems Exam Vitals Vital Signs Date Temp Pulse Resp B/P (MAP) Pulse Ox O2 O2 Flow FiO2 Time Delivery Rate 12/28/18 66 16 118/76 99 09:15 (90) 12/28/18 99.9 Mechanical 08:00 Ventilator 12/28/18 40 08:00 Intake and Output 12/27/18 12/27/18 12/28/18 1414:59 22:59 06:59 IntakeIntake Total 1560 ml 2115 ml 1645 ml OutputOutput Total 2121 ml 1341 ml 1326 ml BalanceBalance -561 ml 774 ml 319 ml Results Result Diagram: 12/28/18 0442 12/28/18 0441 Results 24hrs Laboratory Tests Test 12/27/18 15:45 12/27/18 17:07 12/28/18 04:41 12/28/18 04:42 Sodium Level 141 144 Potassium Level 3.4 L 3.8 Chloride Level 109 111 H Carbon Dioxide Level 28 27 Anion Gap 4 L 6 Blood Urea Nitrogen 18 19 Creatinine 0.83 0.82 Est Glomerular > 60 > 60 Filtrat Rate mL/min Glucose Level 133 154 Calcium Level 8.8 8.7 Magnesium Level 2.0 Vancomycin Level 10.2 Trough White Blood Count 7.8 Red Blood Count 4.10 L Hemoglobin 10.4 L Hematocrit 33.9 L Mean Corpuscular 82.7 Volume Mean Corpuscular 25.4 L Hemoglobin Mean Corpuscular 30.7 L Hemoglobin Concent Red Cell 16.4 H Distribution Width Platelet Count 216 Mean Platelet Volume 9.8 Immature 0.300 Granulocytes % Neutrophils % 83.8 H Lymphocytes % 7.7 L Monocytes % 6.6 Eosinophils % 1.2 Basophils % 0.4 Nucleated Red Blood 0.0 Cells % Immature 0.020 Granulocytes # Neutrophils # 6.5 Lymphocytes # 0.6 L Monocytes # 0.5 Eosinophils # 0.1 Basophils # 0.0 Nucleated Red Blood 0.0 Cells # Test 12/28/18 09:12 B-Type Natriuretic 814 H Peptide Medications Medication Current Medications Labetalol HCl (Labetalol) 20 mg Q20M PRN IV ELEVATED BLOOD PRESSURE Last administered on 12/22/18 17:44; Admin Dose 20 MG; Start 12/22/18 at 17:30 Ondansetron HCl (Zofran Inj) 4 mg Q6H PRN IV NAUSEA AND/OR VOMITING Last administered on 12/23/18 05:15; Admin Dose 4 MG; Start 12/22/18 at 23:00 Albuterol (Ventolin Hfa) 4 puff Q2H RESP THERAPY PRN INH SHORTNESS OF BREATH; Start 12/22/18 at 23:00 Ipratropium [place] (Atrovent Hfa) 4 puff Q2H RESP THERAPY PRN INH SHORTNESS OF BREATH; Start 12/22/18 at 23:00 Acetaminophen (Tylenol Supp) 650 mg Q4H PRN [place] PAIN LEVEL 1-3 OR FEVER Last administered on 12/24/18 20:34; Admin Dose 650 MG; Start 12/22/18 at 23:00 Propofol 100 ml @ 2.387 mls/ hr PER PROTOCOL IV ; Start 12/22/18 at 23:00 Diphenhydramine HCl (Benadryl) 25 mg Q6H PRN IV ITCHING; Start 12/23/18 at 00:00 Morphine Sulfate (morphine) 2 mg Q2H PRN IV SEVERE PAIN LEVEL 7-10 Last administered on 12/23/18 13:26; Admin Dose 2 MG; Start 12/23/18 at 09:30 Lansoprazole (Prevacid) 30 mg DAILY@06 PO Last administered on 12/28/18 05:15; Admin Dose 30 MG; Start 12/26/18 at 06:00 Nicardipine HCl 50 mg/Sodium Chloride 500 ml @ 50 mls/hr TITRATE IV Last administered on 12/28/18 08:32; Admin Dose 150 MLS/HR; Start 12/25/18 at 20:00 Levetiracetam 100 ml @ 400 mls/hr Q12 IVPB Last administered on 12/28/18 08:19; Admin Dose 400 MLS/HR; Start 12/25/18 at 23:00 Lorazepam (Ativan) 1 mg [id number] PRN IV SEIZURES Last administered on 12/26/18 21:22; Admin Dose 1 MG; Start 12/25/18 at 23:00 Acetaminophen (Tylenol Liquid) 650 mg Q4H PRN NGT MILD PAIN(1-3)OR ELEVATED TEMP Last administered on 12/28/18 04:11; Admin Dose 650 MG; Start 12/26/18 at 05:00 Vancomycin HCl (Vanco Iv Per Pharmacy) VANCOMYCIN PER PHARMACY PER PROTOCOL XX ; Start 12/26/18 at 05:30 Piperacillin Sod/ Tazobactam Sod 100 ml @ 200 mls/hr Q6 IVPB Last administered on 12/28/18 05:15; Admin Dose 200 MLS/HR; Start 12/26/18 at 06:00 Metoprolol Tartrate (Lopressor) 50 mg BID PO Last administered on 12/28/18 08:20; Admin Dose 50 MG; Start 12/27/18 at 21:00 Hydralazine HCl (Apresoline) 10 mg Q6H PRN IV SBP> 140 Last administered on 12/28/18at 01:32; Admin Dose 10 MG; Start 12/27/18 at 15:30 Vancomycin/Sodium Chloride 250 ml @ 83.333 mls/ hr Q12H IVPB Last administered on 12/28/18 05:15; Admin Dose 83.333 MLS/HR; Start 12/28/18 at 06:00 Hydralazine HCl (Apresoline) 25 mg Q8H NGT ; Start 12/28/18 at 16:00 ANGELES MILLER Dec 28, 2018 10:54
--- NOTE | 2018-12-28 11:03 | CONS ---
Assessment/Plan Assessment/Plan Assessment/Plan (Daily) Ventilator setting; AC of 16, tidal volume 500, PEEP of 5, 40% FiO2. Assessment and recommendations; 1. Patient admitted with respiratory failure due to intracranial bleed status post placement of right ventriculostomy with extremely poor mental status. 2. History of prior CABG. 3. Anemia. 4. Hypertension. Continue current supportive care. Consider stopping antibiotics. Prognosis is extremely poor. 35 minutes of critical care time was spent evaluating patient. Consultation Date/Type/Reason Admit Date/Time Dec 22, 2018 at 23:55 Initial Consult Date Type of Consult Pulmonary/critical care Patient's condition is critical. Remains profoundly unresponsive. Patient however has remained hemodynamically stable. General exam; elderly male, orally intubated, unresponsive, currently in no distress. Requesting Provider: MICHAEL GOTTLIEB Date/Time of Note DATE: 12/28/18 TIME: 11:00 24 HR Interval Summary Free Text/Dictation Patient's condition is critical. Remains essentially unresponsive. General exam; elderly male, orally intubated, unresponsive, currently in no distress. Exam/Review of Systems Exam Vitals Vital Signs Date Temp Pulse Resp B/P (MAP) Pulse Ox O2 O2 Flow FiO2 Time Delivery Rate 12/28/18 66 16 118/76 99 09:15 (90) 12/28/18 99.9 Mechanical 08:00 Ventilator 12/28/18 40 08:00 Intake and Output 12/27/18 12/27/18 12/28/18 1515:00 23:00 07:00 IntakeIntake Total 1600 ml 2065 ml 1680 ml OutputOutput Total 2027 ml 1352 ml 1310 ml BalanceBalance -427 ml 713 ml 370 ml Exam H EENT exam; supple neck, no JVD. No lymphadenopathy. Midline trachea. No thyromegaly. Right ventriculostomy in place. Pupils are small bilaterally. Patient has fair dentition. No neck masses. Orally intubated. Chest exam; diminished breath sounds bilaterally. No added sounds. S1-S2 audible, no murmurs. Regular rhythm. Abdomen exam; soft, no organomegaly. Bowel sounds audible. Extremity exam; no peripheral edema. CLEAN OUT DRILLER exam; patient is unresponsive. Results Result Diagram: 12/28/18 0442 12/28/18 0441 Results 24hrs Laboratory Tests Test 12/27/18 15:45 12/27/18 17:07 12/28/18 04:41 12/28/18 04:42 Sodium Level 141 144 Potassium Level 3.4 L 3.8 Chloride Level 109 111 H Carbon Dioxide Level 28 27 Anion Gap 4 L 6 Blood Urea Nitrogen 18 19 Creatinine 0.83 0.82 Est Glomerular > 60 > 60 Filtrat Rate mL/min Glucose Level 133 154 Calcium Level 8.8 8.7 Magnesium Level 2.0 Vancomycin Level 10.2 Trough White Blood Count 7.8 Red Blood Count 4.10 L Hemoglobin 10.4 L Hematocrit 33.9 L Mean Corpuscular 82.7 Volume Mean Corpuscular 25.4 L Hemoglobin Mean Corpuscular 30.7 L Hemoglobin Concent Red Cell 16.4 H Distribution Width Platelet Count 216 Mean Platelet Volume 9.8 Immature 0.300 Granulocytes % Neutrophils % 83.8 H Lymphocytes % 7.7 L Monocytes % 6.6 Eosinophils % 1.2 Basophils % 0.4 Nucleated Red Blood 0.0 Cells % Immature 0.020 Granulocytes # Neutrophils # 6.5 Lymphocytes # 0.6 L Monocytes # 0.5 Eosinophils # 0.1 Basophils # 0.0 Nucleated Red Blood 0.0 Cells # Test 12/28/18 09:12 B-Type Natriuretic 814 H Peptide Medications Medication Current Medications Labetalol HCl (Labetalol) 20 mg Q20M PRN IV ELEVATED BLOOD PRESSURE Last administered on 12/22/18at 17:44; Admin Dose 20 MG; Start 12/22/18 at 17:30 Ondansetron HCl (Zofran Inj) 4 mg Q6H PRN IV NAUSEA AND/OR VOMITING Last administered on 12/23/18at 05:15; Admin Dose 4 MG; Start 12/22/18 at 23:00 Albuterol (Ventolin Hfa) 4 puff Q2H RESP THERAPY PRN INH SHORTNESS OF BREATH; Start 12/22/18 at 23:00 Ipratropium [place] (Atrovent Hfa) 4 puff Q2H RESP THERAPY PRN INH SHORTNESS OF BREATH; Start 12/22/18 at 23:00 Acetaminophen (Tylenol Supp) 650 mg Q4H PRN [place] PAIN LEVEL 1-3 OR FEVER Last administered on 12/24/18at 20:34; Admin Dose 650 MG; Start 12/22/18 at 23:00 Propofol 100 ml @ 2.387 mls/ hr PER PROTOCOL IV ; Start 12/22/18 at 23:00 Diphenhydramine HCl (Benadryl) 25 mg Q6H PRN IV ITCHING; Start 12/23/18 at 00:00 Morphine Sulfate (morphine) 2 mg Q2H PRN IV SEVERE PAIN LEVEL 7-10 Last administered on 12/23/18 13:26; Admin Dose 2 MG; Start 12/23/18 at 09:30 Lansoprazole (Prevacid) 30 mg DAILY@06 PO Last administered on 12/28/18 05:15; Admin Dose 30 MG; Start 12/26/18 at 06:00 Nicardipine HCl 50 mg/Sodium Chloride 500 ml @ 50 mls/hr TITRATE IV Last administered on 12/28/18 08:32; Admin Dose 150 MLS/HR; Start 12/25/18 at 20:00 Levetiracetam 100 ml @ 400 mls/hr Q12 IVPB Last administered on 12/28/18 08:19; Admin Dose 400 MLS/HR; Start 12/25/18 at 23:00 Lorazepam (Ativan) 1 mg [id number] PRN IV SEIZURES Last administered on 12/26/18 21:22; Admin Dose 1 MG; Start 12/25/18 at 23:00 Acetaminophen (Tylenol Liquid) 650 mg Q4H PRN NGT MILD PAIN(1-3)OR ELEVATED TEMP Last administered on 12/28/18 04:11; Admin Dose 650 MG; Start 12/26/18 at 05:00 Vancomycin HCl (Vanco Iv Per Pharmacy) VANCOMYCIN PER PHARMACY PER PROTOCOL XX ; Start 12/26/18 at 05:30 Piperacillin Sod/ Tazobactam Sod 100 ml @ 200 mls/hr Q6 IVPB Last administered on 12/28/18 05:15; Admin Dose 200 MLS/HR; Start 12/26/18 at 06:00 Metoprolol Tartrate (Lopressor) 50 mg BID PO Last administered on 12/28/18 08:20; Admin Dose 50 MG; Start 12/27/18 at 21:00 Hydralazine HCl (Apresoline) 10 mg Q6H PRN IV SBP> 140 Last administered on 12/28/18 01:32; Admin Dose 10 MG; Start 12/27/18 at 15:30 Vancomycin/Sodium Chloride 250 ml @ 83.333 mls/ hr Q12H IVPB Last administered on 12/28/18at 05:15; Admin Dose 83.333 MLS/HR; Start 12/28/18 at 06:00 Hydralazine HCl (Apresoline) 25 mg Q8H NGT ; Start 12/28/18 at 16:00 GOYO GRAVES Dec 28, 2018 11:03
--- NOTE | 2018-12-28 20:13 | RADRPT ---
Echocardiogram Report Patient Name: SERGIO CHOUDHURYPatient ID: [id number] : 1955 (63y 6m)Study Date: 12/28/2018 11:22:42 AM Gender: MAccession #: [id number] Tech: Tyrell Oconnor [facility] Location: [address] Ref.Physician: MICHAEL GOTTLIEB Height(Cm): BSA: Weight(Kg): Quality: AdequateOrder Physician: MICHAEL GOTTLIEB Account #: Procedures: Echocardiographic Report: Transthoracic echocardiogram with complete 2D, M-Mode, and doppler examination. Indications: Fluid overload, New murmur. Measurements: 2D/M Mode Doppler Measurement Value Normal Range Measurement Value Normal Range LVIDd 2D 4.7 [ 4.2 - 5.8 ] cm DEMETRI VTI 1.5 [ 2.0 - 4.0 ] cm2 LVIDs 2D 3.1 [ 2.5 - 4.0 ] cm AV Mean Jose 2.2 [ 70.0 - 90.0 ] cm/sec LVPWd 2D 1.5 [ 0.6 - 1.0 ] cm AV Mean PG 23.0 [ 2.0 - 4.0 ] mmHg IVSd 2D 1.5 [ 0.6 - 1.0 ] cm AV VTI 62.1 cm AoR Diam 2D 3.0 [ 2.6 - 3.4 ] cm LVOT Mean Jose 1.2 [ 60.0 - 80.0 ] cm/sec EDV 2D 102.0 [ 62.0 - 150.0 ] ml LVOT Mean PG 7.0 [ 1.0 - 3.0 ] mmHg ESV 2D 37.3 [ 21.0 - 61.0 ] ml LVOT Peak Jose 1.7 [ 70.0 - 110.0 ] cm/sec EF 2D 63.4 [ 52.0 - 72.0 ] percent LVOT Peak PG 12.0 [ 2.0 - 6.0 ] mmHg LA Dimen 2D 3.4 [ 3.0 - 4.0 ] cm LVOT VTI 33.4 [ 20.0 - 30.0 ] cm LVOT Diam 1.9 [ 2.3 - 2.9 ] cm MV E Peak Jose 1.0 [ 60.0 - 130.0 ] cm/sec MV A Peak Jose 0.9 [ 100.0 - 120.0 ] cm/sec MV E/A 1.1 [ 0.8 - 1.5 ] ratio MV Decel Time 246 [ 104 - 258 ] msec Lat E` Jose 0.1 [ 10.0 - 15.0 ] cm/sec Lateral E/E` 12.8 [ 1.0 - 2.0 ] ratio Med E` Jose 0.1 cm/sec MV E/A 1.1 [ 0.8 - 1.5 ] ratio TR Peak Jose 2.3 [ 100.0 - 280.0 ] cm/sec TR Peak PG 21.0 mmHg RVSP 24.0 [ 10.0 - 36.0 ] mmHg Findings: Left Ventricle: Normal left ventricular systolic function. Normal left ventricular cavity size. Moderate concentric left ventricular hypertrophy. Ejection fraction is visually estimated at 55 %. Tissue Doppler/Mitral Doppler indices are consistent with impaired relaxation (Stage I diastolic dysfunction). Right Ventricle: Normal right ventricular systolic function. Mild enlargement of right ventricle. Left Atrium: The left atrium is normal in size. Right Atrium: There is moderate enlargement of right atrium. Mitral Valve: Mild mitral leaflet calcification. Mild mitral annular calcification. Trace mitral regurgitation. Aortic Valve: Mild to moderate aortic stenosis. Aortic valve Max velocity 3.41 m/sec. Max PG 46.60 mmHg. Mean PG 23.00 mmHg. Aortic valve area 1.50 cm2. Aortic cusps appear moderately calcified. Aortic cusps appear mildly restricted. Tricuspid Valve: Normal appearance of the tricuspid valve. The estimated Peak RVSP is 24 mmHg. There is trace tricuspid regurgitation. Pericardium: Normal pericardium with no significant pericardial effusion. Aorta: Normal aortic root. IVC: Normal IVC with respiratory collapse, however patient on ventilator. Conclusions: Normal left ventricular systolic function. Normal left ventricular cavity size. Moderate concentric left ventricular hypertrophy. Ejection fraction is visually estimated at 55 %. Tissue Doppler/Mitral Doppler indices are consistent with impaired relaxation (Stage I diastolic dysfunction). There is moderate enlargement of right atrium. Mild mitral leaflet calcification. Mild mitral annular calcification. Trace mitral regurgitation. Mild to moderate aortic stenosis. Aortic valve Max velocity 3.41 m/sec. Max PG 46.60 mmHg. Mean PG 23.00 mmHg. Aortic valve area 1.50 cm2. Aortic cusps appear moderately calcified. Aortic cusps appear mildly restricted. Normal appearance of the tricuspid valve. The estimated Peak RVSP is 24 mmHg. There is trace tricuspid regurgitation. Electronically Signed By: Cordell Soliman 2018-12-28 20:11:48 PDT
--- NOTE | 2018-12-28 21:06 | PN ---
Date/Time of Note Date/Time of Note DATE: 12/28/18 TIME: 20:54 Assessment/Plan Lines/Catheters IV C[facility] Type ([facility] Peripheral IV Chaidez in Place (from Nrs): Yes Assessment/Plan Chief Complaint/Hosp Course POD # 6 s/p suboccipital craniotomy for evacuation of hematoma/ EVD. Patient continues to do poorly. ICP's have been low. CT appears to have multiple insults- clearly herniated from bleed with resultant infarcts. Blood around catheter- etiology unclear but may also cause some issue though generally silent in this area. I spoke with the patient's son at the request of his . I explained that he has had a devastating injury. I do not believe the patient has any significant likelihood of a meaningful recovery. 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 He will not have a quality of life that most people would find satisfactory to live. I therefore recommended palliative treatment. He will likely deteriorate from hydrocephalus is EVD removed but I do not feel that shunting him is appropriate as it will prolong living in a condition he would not want to live in. The family states th ey want to wait until the patient';s daughter [place]. Therefore will cont. EVD drainage but do not believe that shunting is appropriate for this patient though will defer to the family's care decision. Subjective 24 Hr Interval Summary Subjective hx not possible: pt non-verbal Additional Comments remains intubated Exam/Review of Systems Vital Signs Vitals Vital Signs Date Temp Pulse Resp B/P (MAP) Pulse Ox O2 O2 Flow FiO2 Time Delivery Rate 12/28/18 73 21 130/79 99 20:15 (96) 12/28/18 98.3 Mechanical 20:00 Ventilator 12/28/18 40 17:47 Intake and Output 12/27/18 12/27/18 12/28/18 1515:00 23:00 07:00 IntakeIntake Total 1600 ml 2065 ml 1680 ml OutputOutput Total 2027 ml 1352 ml 1310 ml BalanceBalance -427 ml 713 ml 370 ml Exam Neurological: other (opens right greater than left eye again briefly to noxious simuli. No UE movement to pain or spontaneously. NO corneal. Pupils small and minimally reactive, disconjugate. LE withdraw) Results Result Diagram: 12/28/18 0442 12/28/18 0441 JOVANI MCGARRY MD Dec 28, 2018 21:05
[2018-12-29] VITALS (106 sets, daily range): BP systolic 87–158; BP diastolic 64–105; PULSE 62–90; RESP 13–33
[2018-12-29] MEDS: PIPER-TAZO 3.375 GM IV (PMX) 100 ML IVPB SCH ×5 (00:23→23:20)
[2018-12-29] MEDS: niCARdipine 50 MG in SOD CHLORIDE 0.9% 480 ML IV SCH ×6 (01:55→19:59)
[2018-12-29] MEDS: LANSOPRAZOLE 30 MG CAP PO SCH (05:19)
[2018-12-29] MEDS: hydrALAzine 20 MG INJ IV PRN ×2 (05:19→12:44)
--- NOTE | 2018-12-29 07:59 | CONS ---
Assessment/Plan Assessment/Plan Assessment/Plan (Daily) Family conference was done with all family members including patients son and extended family members and friends. Conference was approximately one hour long all questions were answered and safaris patient's preadmission medical problems, admitting diagnosis admitting procedure was done per neurological consultation and critical care status. Family members had many questions which were appropriate concerning ongoing level of care options, possible transfer to a higher level of care, prognosis. Most especially family members made it very clear that he would not want to live in a vegetative condition for the rest of his life. Patient apparently had a very active social life and according to syeda rodriguez's especially he would rather than live in a vegetative condition. However it made it very clear they do not want to make any final decisions until the daughter arrives from [facility] on Tuesday, January 01. However I will contact them today after allowing them to dissect the information was presented to them in address patients code status. It would be tragic if he would require cardiopulmonary resuscitation between downward family member arise from [facility]. Consultation Date/Type/Reason Admit Date/Time Dec 22, 2018 at 23:55 Date/Time of Note DATE: 12/29/18 TIME: 07:59 Past Medical History Home Meds Reported Medications Metoprolol Tartrate* (Lopressor*) 50 Mg Tab, 50 MG PO BID, #60 TAB 12/23/18 Aspirin* (Aspirin* Chew) 81 Mg Tab.chew, 81 MG PO DAILY, TAB.CHEW 12/23/18 Atorvastatin* (Atorvastatin*) 80 Mg Tablet, 80 MG PO QHS, #30 TAB 12/23/18 Donepezil* (Donepezil*) 5 Mg Tablet, 5 MG PO DAILY, #30 TAB 12/23/18 Medications Current Medications Labetalol HCl (Labetalol) 20 mg Q20M PRN IV ELEVATED BLOOD PRESSURE Last administered on 12/22/18at 17:44; Admin Dose 20 MG; Start 12/22/18 at 17:30 Ondansetron HCl (Zofran Inj) 4 mg Q6H PRN IV NAUSEA AND/OR VOMITING Last administered on 12/23/18at 05:15; Admin Dose 4 MG; Start 12/22/18 at 23:00 Albuterol (Ventolin Hfa) 4 puff Q2H RESP THERAPY PRN INH SHORTNESS OF BREATH; Start 12/22/18 at 23:00 Ipratropium [place] (Atrovent Hfa) 4 puff Q2H RESP THERAPY PRN INH SHORTNESS OF BREATH; Start 12/22/18 at 23:00 Acetaminophen (Tylenol Supp) 650 mg Q4H PRN [place] PAIN LEVEL 1-3 OR FEVER Last administered on 12/24/18at 20:34; Admin Dose 650 MG; Start 12/22/18 at 23:00 Propofol 100 ml @ 2.387 mls/ hr PER PROTOCOL IV ; Start 12/22/18 at 23:00 Diphenhydramine HCl (Benadryl) 25 mg Q6H PRN IV ITCHING; Start 12/23/18 at 00:00 Morphine Sulfate (morphine) 2 mg Q2H PRN IV SEVERE PAIN LEVEL 7-10 Last administered on 12/23/18at 13:26; Admin Dose 2 MG; Start 12/23/18 at 09:30 Lansoprazole (Prevacid) 30 mg DAILY@06 PO Last administered on 12/29/18 05:19; Admin Dose 30 MG; Start 12/26/18 at 06:00 Nicardipine HCl 50 mg/Sodium Chloride 500 ml @ 50 mls/hr TITRATE IV Last administered on 12/29/18 05:30; Admin Dose 150 MLS/HR; Start 12/25/18 at 20:00 Levetiracetam 100 ml @ 400 mls/hr Q12 IVPB Last administered on 12/28/18 21:03; Admin Dose 400 MLS/HR; Start 12/25/18 at 23:00 Lorazepam (Ativan) 1 mg [id number] PRN IV SEIZURES Last administered on 12/26/18 21:22; Admin Dose 1 MG; Start 12/25/18 at 23:00 Acetaminophen (Tylenol Liquid) 650 mg Q4H PRN NGT MILD PAIN(1-3)OR ELEVATED TEMP Last administered on 12/28/18 15:38; Admin Dose 650 MG; Start 12/26/18 at 05:00 Piperacillin Sod/ Tazobactam Sod 100 ml @ 200 mls/hr Q6 IVPB Last administered on 12/29/18 05:19; Admin Dose 200 MLS/HR; Start 12/26/18 at 06:00 Metoprolol Tartrate (Lopressor) 50 mg BID PO Last administered on 12/28/18at 21:03; Admin Dose 50 MG; Start 12/27/18 at 21:00 Hydralazine HCl (Apresoline) 10 mg Q6H PRN IV SBP> 140 Last administered on 12/29/18at 05:19; Admin Dose 10 MG; Start 12/27/18 at 15:30 Hydralazine HCl (Apresoline) 25 mg Q8H NGT Last administered on 12/29/18at 00:22; Admin Dose 25 MG; Start 12/28/18 at 16:00 Allergies: Coded Allergies: Unknown: Unable to obtain (Unverified , 12/22/18) Social History Smoking Status: Current every day smoker Exam/Review of Systems Exam Vitals Vital Signs Date Temp Pulse Resp B/P (MAP) Pulse Ox O2 O2 Flow FiO2 Time Delivery Rate 12/29/18 90 25 141/75 99 06:45 (97) 12/29/18 Mechanical 06:00 Ventilator 12/29/18 40 05:24 12/29/18 99.1 04:00 Intake and Output 12/28/18 12/28/18 12/29/18 1515:00 23:00 07:00 IntakeIntake Total 2195 ml 1570 ml 1530 ml OutputOutput Total 941 ml 1328 ml 1150 ml BalanceBalance 1254 ml 242 ml 380 ml Results Result Diagram: 12/29/18 0424 12/29/18 0424 Results 24hrs Laboratory Tests Test 12/28/18 09:12 12/29/18 04:24 B-Type Natriuretic Peptide 814 H White Blood Count 7.5 Red Blood Count 4.46 L Hemoglobin 11.3 L Hematocrit 37.1 L Mean Corpuscular Volume 83.2 Mean Corpuscular Hemoglobin 25.3 L Mean Corpuscular Hemoglobin Concent 30.5 L Red Cell Distribution Width 16.1 H Platelet Count 250 Mean Platelet Volume 10.7 H Immature Granulocytes % 0.400 Neutrophils % 86.1 H Lymphocytes % 7.4 L Monocytes % 5.6 Eosinophils % 0.4 Basophils % 0.1 Nucleated Red Blood Cells % 0.0 Immature Granulocytes # 0.030 Neutrophils # 6.5 Lymphocytes # 0.6 L Monocytes # 0.4 Eosinophils # 0.0 Basophils # 0.0 Nucleated Red Blood Cells # 0.0 Sodium Level 144 Potassium Level 4.2 Chloride Level 111 H Carbon Dioxide Level 24 Anion Gap 9 Blood Urea Nitrogen 22 H Creatinine 0.63 Est Glomerular Filtrat Rate mL/min > 60 Glucose Level 142 Calcium Level 8.9 Medications Medication Current Medications Labetalol HCl (Labetalol) 20 mg Q20M PRN IV ELEVATED BLOOD PRESSURE Last administered on 12/22/18 17:44; Admin Dose 20 MG; Start 12/22/18 at 17:30 Ondansetron HCl (Zofran Inj) 4 mg Q6H PRN IV NAUSEA AND/OR VOMITING Last administered on 12/23/18 05:15; Admin Dose 4 MG; Start 12/22/18 at 23:00 Albuterol (Ventolin Hfa) 4 puff Q2H RESP THERAPY PRN INH SHORTNESS OF BREATH; Start 12/22/18 at 23:00 Ipratropium [place] (Atrovent Hfa) 4 puff Q2H RESP THERAPY PRN INH SHORTNESS OF BREATH; Start 12/22/18 at 23:00 Acetaminophen (Tylenol Supp) 650 mg Q4H PRN [place] PAIN LEVEL 1-3 OR FEVER Last administered on 12/24/18at 20:34; Admin Dose 650 MG; Start 12/22/18 at 23:00 Propofol 100 ml @ 2.387 mls/ hr PER PROTOCOL IV ; Start 12/22/18 at 23:00 Diphenhydramine HCl (Benadryl) 25 mg Q6H PRN IV ITCHING; Start 12/23/18 at 00:00 Morphine Sulfate (morphine) 2 mg Q2H PRN IV SEVERE PAIN LEVEL 7-10 Last administered on 12/23/18at 13:26; Admin Dose 2 MG; Start 12/23/18 at 09:30 Lansoprazole (Prevacid) 30 mg DAILY@06 PO Last administered on 12/29/18 05:19; Admin Dose 30 MG; Start 12/26/18 at 06:00 Nicardipine HCl 50 mg/Sodium Chloride 500 ml @ 50 mls/hr TITRATE IV Last administered on 12/29/18 05:30; Admin Dose 150 MLS/HR; Start 12/25/18 at 20:00 Levetiracetam 100 ml @ 400 mls/hr Q12 IVPB Last administered on 12/28/18 21:03; Admin Dose 400 MLS/HR; Start 12/25/18 at 23:00 Lorazepam (Ativan) 1 mg [id number] PRN IV SEIZURES Last administered on 12/26/18 21:22; Admin Dose 1 MG; Start 12/25/18 at 23:00 Acetaminophen (Tylenol Liquid) 650 mg Q4H PRN NGT MILD PAIN(1-3)OR ELEVATED TEMP Last administered on 12/28/18at 15:38; Admin Dose 650 MG; Start 12/26/18 at 05:00 Piperacillin Sod/ Tazobactam Sod 100 ml @ 200 mls/hr Q6 IVPB Last administered on 12/29/18 05:19; Admin Dose 200 MLS/HR; Start 12/26/18 at 06:00 Metoprolol Tartrate (Lopressor) 50 mg BID PO Last administered on 12/28/18at 21:03; Admin Dose 50 MG; Start 12/27/18 at 21:00 Hydralazine HCl (Apresoline) 10 mg Q6H PRN IV SBP> 140 Last administered on 12/29/18at 05:19; Admin Dose 10 MG; Start 12/27/18 at 15:30 Hydralazine HCl (Apresoline) 25 mg Q8H NGT Last administered on 12/29/18at 00:22; Admin Dose 25 MG; Start 12/28/18 at 16:00 ANGELES MILLER Dec 29, 2018 07:59
[2018-12-29] MEDS: LEVETIRACETAM 1000 MG (PMX) 100 ML IVPB SCH ×2 (09:02→20:35)
[2018-12-29] MEDS: METOPROLOL 50 MG TAB PO SCH ×2 (09:02→20:34)
--- NOTE | 2018-12-29 09:07 | CONS ---
Assessment/Plan Assessment/Plan Assessment/Plan (Daily) Ventilator setting; assist control of 16, tidal volume 500, PEEP of 5, 40% FiO2. Assessment and recommendations; 1. Patient admitted with intracranial bleed status post craniotomy and ventriculostomy. MRI brain showing multiple infarcts. Patient exhibiting profound encephalopathy. 2. History of prior CABG. 3. History of hypertension. 4. E. coli and Enterobacter cultured from sputum. Patient currently on appropriate antimicrobial regimen. 5. Mild anemia. 6. Seizures. Continue current supportive care. Prognosis is extremely poor. Palliative care should be considered. Consultation Date/Type/Reason Admit Date/Time Dec 22, 2018 at 23:55 Initial Consult Date Type of Consult Pulmonary/critical care Patient's condition is critical. Remains profoundly unresponsive. Patient however has remained hemodynamically stable. General exam; elderly male, orally intubated, unresponsive, currently in no distress. Requesting Provider: MICHAEL OGTTLIEB Date/Time of Note DATE: 12/29/18 TIME: 09:04 24 HR Interval Summary Free Text/Dictation Patient's condition is critical. Remains profoundly unresponsive. Patient however has remained hemodynamically stable. General exam; elderly male, orally intubated, unresponsive, currently in no distress. Exam/Review of Systems Exam Vitals Vital Signs Date Temp Pulse Resp B/P (MAP) Pulse Ox O2 O2 Flow FiO2 Time Delivery Rate 12/29/18 90 25 141/75 99 06:45 (97) 12/29/18 Mechanical 06:00 Ventilator 12/29/18 40 05:24 12/29/18 99.1 04:00 Intake and Output 12/28/18 12/28/18 12/29/18 1515:00 23:00 07:00 IntakeIntake Total 2195 ml 1570 ml 1530 ml OutputOutput Total 941 ml 1328 ml 1150 ml BalanceBalance 1254 ml 242 ml 380 ml Exam HEENT exam; supple neck, no JVD. No lymphadenopathy. Midline trachea. No thyromegaly. There is a right ventriculostomy in place. Patient has fair dentition. Pupils are small bilaterally. Orogastric tube in place. Chest exam; diminished but clear breath sounds. S1-S2 audible, no murmurs. Regular rhythm. There is a well-healed sternal scar. Abdomen exam; soft, protuberant. No organomegaly. Bowel sounds audible. Extremity exam; no edema. TENNIS PLAYER exam; patient remains unresponsive. Results Result Diagram: 12/29/18 0424 12/29/18 0424 Results 24hrs Laboratory Tests Test 12/28/18 09:12 12/29/18 04:24 B-Type Natriuretic Peptide 814 H White Blood Count 7.5 Red Blood Count 4.46 L Hemoglobin 11.3 L Hematocrit 37.1 L Mean Corpuscular Volume 83.2 Mean Corpuscular Hemoglobin 25.3 L Mean Corpuscular Hemoglobin Concent 30.5 L Red Cell Distribution Width 16.1 H Platelet Count 250 Mean Platelet Volume 10.7 H Immature Granulocytes % 0.400 Neutrophils % 86.1 H Lymphocytes % 7.4 L Monocytes % 5.6 Eosinophils % 0.4 Basophils % 0.1 Nucleated Red Blood Cells % 0.0 Immature Granulocytes # 0.030 Neutrophils # 6.5 Lymphocytes # 0.6 L Monocytes # 0.4 Eosinophils # 0.0 Basophils # 0.0 Nucleated Red Blood Cells # 0.0 Sodium Level 144 Potassium Level 4.2 Chloride Level 111 H Carbon Dioxide Level 24 Anion Gap 9 Blood Urea Nitrogen 22 H Creatinine 0.63 Est Glomerular Filtrat Rate mL/min > 60 Glucose Level 142 Calcium Level 8.9 Medications Medication Current Medications Labetalol HCl (Labetalol) 20 mg Q20M PRN IV ELEVATED BLOOD PRESSURE Last administered on 12/22/18at 17:44; Admin Dose 20 MG; Start 12/22/18 at 17:30 Ondansetron HCl (Zofran Inj) 4 mg Q6H PRN IV NAUSEA AND/OR VOMITING Last administered on 12/23/18at 05:15; Admin Dose 4 MG; Start 12/22/18 at 23:00 Albuterol (Ventolin Hfa) 4 puff Q2H RESP THERAPY PRN INH SHORTNESS OF BREATH; Start 12/22/18 at 23:00 Ipratropium [place] (Atrovent Hfa) 4 puff Q2H RESP THERAPY PRN INH SHORTNESS OF BREATH; Start 12/22/18 at 23:00 Acetaminophen (Tylenol Supp) 650 mg Q4H PRN [place] PAIN LEVEL 1-3 OR FEVER Last administered on 12/24/18at 20:34; Admin Dose 650 MG; Start 12/22/18 at 23:00 Propofol 100 ml @ 2.387 mls/ hr PER PROTOCOL IV ; Start 12/22/18 at 23:00 Diphenhydramine HCl (Benadryl) 25 mg Q6H PRN IV ITCHING; Start 12/23/18 at 00:00 Morphine Sulfate (morphine) 2 mg Q2H PRN IV SEVERE PAIN LEVEL 7-10 Last administered on 12/23/18 13:26; Admin Dose 2 MG; Start 12/23/18 at 09:30 Lansoprazole (Prevacid) 30 mg DAILY@06 PO Last administered on 12/29/18 05:19; Admin Dose 30 MG; Start 12/26/18 at 06:00 Nicardipine HCl 50 mg/Sodium Chloride 500 ml @ 50 mls/hr TITRATE IV Last administered on 12/29/18 09:01; Admin Dose 150 MLS/HR; Start 12/25/18 at 20:00 Levetiracetam 100 ml @ 400 mls/hr Q12 IVPB Last administered on 12/29/18 09:02; Admin Dose 400 MLS/HR; Start 12/25/18 at 23:00 Lorazepam (Ativan) 1 mg [id number] PRN IV SEIZURES Last administered on 12/26/18 21:22; Admin Dose 1 MG; Start 12/25/18 at 23:00 Acetaminophen (Tylenol Liquid) 650 mg Q4H PRN NGT MILD PAIN(1-3)OR ELEVATED TEMP Last administered on 12/28/18 15:38; Admin Dose 650 MG; Start 12/26/18 at 05:00 Piperacillin Sod/ Tazobactam Sod 100 ml @ 200 mls/hr Q6 IVPB Last administered on 12/29/18 05:19; Admin Dose 200 MLS/HR; Start 12/26/18 at 06:00 Metoprolol Tartrate (Lopressor) 50 mg BID PO Last administered on 12/29/18 09:02; Admin Dose 50 MG; Start 12/27/18 at 21:00 Hydralazine HCl (Apresoline) 10 mg Q6H PRN IV SBP> 140 Last administered on 12/29/18 05:19; Admin Dose 10 MG; Start 12/27/18 at 15:30 Hydralazine HCl (Apresoline) 25 mg Q8H NGT Last administered on 7/26/19at 09:02; Admin Dose 25 MG; Start 12/28/18 at 16:00 GOYO GRAVES Dec 29, 2018 09:06
[2018-12-29] MEDS ORDERED: ARTIFICIAL TEARS 15 ML OPH BOTH EYES PRN (10:00)
[2018-12-29] MEDS: ARTIFICIAL TEARS 15 ML OPH BOTH EYES SCH ×3 (12:44→20:35)
--- NOTE | 2018-12-29 15:58 | PN ---
Date/Time of Note Date/Time of Note DATE: 12/29/18 TIME: 15:48 Assessment/Plan VTE Prophylaxis Risk score (from Ns)>0 risk: 8 SCD applied (from Ns): Yes Pharmacological prophylaxis: NA/contraindicated Pharm contraindication: hemorrhagic infarct Lines/Catheters IV Catheter Type (from Nrsg): Mid Line Urinary Cath still in place: Yes Reason Cath still needed: terminal illness/intractable pain Assessment/Plan Hospital Course 63-year-old male with a past medical history of high blood pressure and chronic tobacco use only who presented to the emergency room with sudden onset of severe headache and collapse in the emergency room was found to have large right cerebellar hemorrhage extending into the ventricles and was emergently rushed to the operating room for suboccipital craniectomy for evacuation of hematoma with right frontal ventriculostomy. He has been managed postoperatively in the ICU as follows: 1. Acute encephalopathy secondary to #2 -patient remains obtunded and has eyes open but no real neurologic response -Patient has poor long-term overall prognosis, family updated on consult, will continue to follow, continue current management 2. 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 -MRI continues to show residual right cerebellar hematoma and moderate bilateral hydrocephalus. -drain still in place -per neurology, Keppra not indicated, dc? -may need shunt per nsg but will not change keno terminal operator prognosis per notes, defer decision to neurosurgery and family 3. 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 Acute respiratory failure secondary to the above -patient remains ventilator dependent, mild increase in O2 requirements overnight 5. Chronic hypertension: -cardene weaning in process, good control, BP goal Systolic 130mmhg or less 6. Systemic inflammatory response syndrome rule out impending sepsis secondary to the above -continue abx for now, repeat cultures, le dopplers to r/o DVT 7. Neurogenic dysphagia on NG tube feedings Dispo: Family meeting planned for tuesday to define goals of care Continue ICU micromanagement and supportive care Spoke with consultants and reviewed all prev imaging Further interventions per course CC time >40mins Result Diagram: 12/29/18 0424 12/29/18 0424 Results 24hrs Laboratory Tests Test 12/29/18 04:24 White Blood Count 7.5 Red Blood Count 4.46 L Hemoglobin 11.3 L Hematocrit 37.1 L Mean Corpuscular Volume 83.2 Mean Corpuscular Hemoglobin 25.3 L Mean Corpuscular Hemoglobin Concent 30.5 L Red Cell Distribution Width 16.1 H Platelet Count 250 Mean Platelet Volume 10.7 H Immature Granulocytes % 0.400 Neutrophils % 86.1 H Lymphocytes % 7.4 L Monocytes % 5.6 Eosinophils % 0.4 Basophils % 0.1 Nucleated Red Blood Cells % 0.0 Immature Granulocytes # 0.030 Neutrophils # 6.5 Lymphocytes # 0.6 L Monocytes # 0.4 Eosinophils # 0.0 Basophils # 0.0 Nucleated Red Blood Cells # 0.0 Sodium Level 144 Potassium Level 4.2 Chloride Level 111 H Carbon Dioxide Level 24 Anion Gap 9 Blood Urea Nitrogen 22 H Creatinine 0.63 Est Glomerular Filtrat Rate mL/min > 60 Glucose Level 142 Calcium Level 8.9 Subjective 24 Hr Interval Summary Free Text/Dictation no new issues, still having good amount from intracranial drain. spoke multiple times with family Exam/Review of Systems Exam Vitals Vital Signs Date Temp Pulse Resp B/P (MAP) Pulse Ox O2 O2 Flow FiO2 Time Delivery Rate 12/29/18 79 20 150/75 99 15:30 (100) 12/29/18 Mechanical 15:00 Ventilator 12/29/18 99.5 12:00 12/29/18 40 10:50 Intake and Output 12/28/18 12/28/18 12/29/18 1515:00 23:00 07:00 IntakeIntake Total 2195 ml 1570 ml 1530 ml OutputOutput Total 941 ml 1328 ml 1150 ml BalanceBalance 1254 ml 242 ml 380 ml Exam Constitutional: Patient remains unresponsive on ventilator support, eyes are now open, but not following commands or tracking), Psych: other (unable to assess) Head: normocephalic, surgical site with keo and dried old blood and drain with serosanguineous fluid Eyes: Pupils now 2-3 mm, equal and reactive No icteric ENMT: ET intubated to vent Respiratory: diminished breath sounds No labored breathing Cardiovascular: regular rate and rhythm, systolic murmurs Gastrointestinal: soft, non-tender, bowel sounds, other NGT Genitourinary -male: nl external genitalia, mild scrotal edema Extremities: mild hand and feet edema Neurological: No nl mental status, No nl speech, No nl strength, no response to sternal rub Results Results 24hrs Laboratory Tests Test 12/29/18 04:24 White Blood Count 7.5 Red Blood Count 4.46 L Hemoglobin 11.3 L Hematocrit 37.1 L Mean Corpuscular Volume 83.2 Mean Corpuscular Hemoglobin 25.3 L Mean Corpuscular Hemoglobin Concent 30.5 L Red Cell Distribution Width 16.1 H Platelet Count 250 Mean Platelet Volume 10.7 H Immature Granulocytes % 0.400 Neutrophils % 86.1 H Lymphocytes % 7.4 L Monocytes % 5.6 Eosinophils % 0.4 Basophils % 0.1 Nucleated Red Blood Cells % 0.0 Immature Granulocytes # 0.030 Neutrophils # 6.5 Lymphocytes # 0.6 L Monocytes # 0.4 Eosinophils # 0.0 Basophils # 0.0 Nucleated Red Blood Cells # 0.0 Sodium Level 144 Potassium Level 4.2 Chloride Level 111 H Carbon Dioxide Level 24 Anion Gap 9 Blood Urea Nitrogen 22 H Creatinine 0.63 Est Glomerular Filtrat Rate mL/min > 60 Glucose Level 142 Calcium Level 8.9 Medications Medication Current Medications Labetalol HCl (Labetalol) 20 mg Q20M PRN IV ELEVATED BLOOD PRESSURE Last administered on 12/22/18at 17:44; Admin Dose 20 MG; Start 12/22/18 at 17:30 Ondansetron HCl (Zofran Inj) 4 mg Q6H PRN IV NAUSEA AND/OR VOMITING Last administered on 12/23/18at 05:15; Admin Dose 4 MG; Start 12/22/18 at 23:00 Albuterol (Ventolin Hfa) 4 puff Q2H RESP THERAPY PRN INH SHORTNESS OF BREATH; Start 12/22/18 at 23:00 Ipratropium [place] (Atrovent Hfa) 4 puff Q2H RESP THERAPY PRN INH SHORTNESS OF BREATH; Start 12/22/18 at 23:00 Acetaminophen (Tylenol Supp) 650 mg Q4H PRN [place] PAIN LEVEL 1-3 OR FEVER Last administered on 12/24/18at 20:34; Admin Dose 650 MG; Start 12/22/18 at 23:00 Propofol 100 ml @ 2.387 mls/ hr PER PROTOCOL IV ; Start 12/22/18 at 23:00 Diphenhydramine HCl (Benadryl) 25 mg Q6H PRN IV ITCHING; Start 12/23/18 at 00:00 Morphine Sulfate (morphine) 2 mg Q2H PRN IV SEVERE PAIN LEVEL 7-10 Last administered on 12/23/18 13:26; Admin Dose 2 MG; Start 12/23/18 at 09:30 Lansoprazole (Prevacid) 30 mg DAILY@06 PO Last administered on 12/29/18 05:19; Admin Dose 30 MG; Start 12/26/18 at 06:00 Nicardipine HCl 50 mg/Sodium Chloride 500 ml @ 50 mls/hr TITRATE IV Last administered on 12/29/18 12:45; Admin Dose 150 MLS/HR; Start 12/25/18 at 20:00 Levetiracetam 100 ml @ 400 mls/hr Q12 IVPB Last administered on 12/29/18 09:02; Admin Dose 400 MLS/HR; Start 12/25/18 at 23:00 Lorazepam (Ativan) 1 mg [id number] PRN IV SEIZURES Last administered on 12/26/18 21:22; Admin Dose 1 MG; Start 12/25/18 at 23:00 Acetaminophen (Tylenol Liquid) 650 mg Q4H PRN NGT MILD PAIN(1-3)OR ELEVATED TEMP Last administered on 12/28/18 15:38; Admin Dose 650 MG; Start 12/26/18 at 05:00 Piperacillin Sod/ Tazobactam Sod 100 ml @ 200 mls/hr Q6 IVPB Last administered on 12/29/18 12:44; Admin Dose 200 MLS/HR; Start 12/26/18 at 06:00 Metoprolol Tartrate (Lopressor) 50 mg BID PO Last administered on 12/29/18 09:02; Admin Dose 50 MG; Start 12/27/18 at 21:00 Hydralazine HCl (Apresoline) 10 mg Q6H PRN IV SBP> 140 Last administered on 12:44; Admin Dose 10 MG; Start 12/27/18 at 15:30 Hydralazine HCl (Apresoline) 25 mg Q8H NGT Last administered on 12/29/18 09:02; Admin Dose 25 MG; Start 12/28/18 at 16:00 Eye Lubricant (Artificial Tears Oph) 2 drop QID BOTH EYES Last administered on 12/29/18at 12:44; Admin Dose 2 DROP; Start 12/29/18 at 13:00 Eye Lubricant (Artificial Tears Oph) 2 drop Q6H PRN BOTH EYES DRY EYES; Start 12/29/18 at 10:00 MICHAEL GOTTLIEB Dec 29, 2018 15:58
[2018-12-29] MEDS ORDERED: HYDROCHLOROTHIAZIDE 25 MG TAB PO ONE (16:00)
[2018-12-29] MEDS: POLYETHYLENE GLYCOL 17 GM PACKET NGT SCH (18:11)
[2018-12-29] MEDS: NIFEdipine (XL) 30 MG TAB PO SCH (20:35)
[2018-12-29] MEDS: LORAZEPAM 2 MG INJ IV PRN (20:59)
--- NOTE | 2018-12-29 21:24 | PN ---
Date/Time of Note Date/Time of Note DATE: 12/29/18 TIME: 21:20 Assessment/Plan Lines/Catheters IV Catheter Type (from Nrs): Mid Line Chaidez in Place (from Nrs): Yes Assessment/Plan Chief Complaint/Hosp Course POD # 7 s/p suboccipital craniotomy for evacuation of hematoma/ EVD. Poor prognosis. Would consider vegetative at this point, truly comatose given eye opening. Awaiting family to make decision re: further treatment. Hopefully will decide this weekend so can proceed with G-tube/trach/shunt that would be necessary if cont. care desired. Subjective 24 Hr Interval Summary Subjective hx not possible: pt non-verbal Exam/Review of Systems Vital Signs Vitals Vital Signs Date Temp Pulse Resp B/P (MAP) Pulse Ox O2 O2 Flow FiO2 Time Delivery Rate 12/29/18 79 20:00 12/29/18 17 139/74 100 18:45 (95) 12/29/18 Mechanical 18:00 Ventilator 12/29/18 40 17:12 12/29/18 98.3 16:00 Intake and Output 12/28/18 12/28/18 12/29/18 1515:00 23:00 07:00 IntakeIntake Total 2195 ml 1570 ml 1655 ml OutputOutput Total 941 ml 1328 ml 1150 ml BalanceBalance 1254 ml 242 ml 505 ml Exam Neurological: other (unchanged exam. Eyes open sponatneously R >L. Does not follow commands. No UE movement seen, LE withdraw. Pupils small, reactive. ) Additional Comments EVD draining, ICP 2 Results Result Diagram: 12/29/18 0424 12/29/18 0424 JOVANI MCGARRY MD Dec 29, 2018 21:23
[2018-12-30] VITALS (86 sets, daily range): BP systolic 83–151; BP diastolic 62–93; PULSE 66–87; RESP 13–30
[2018-12-30] MEDS: CHLORPROMAZINE 25 MG TAB PO PRN ×2 (00:54→09:31)
[2018-12-30] MEDS: PIPER-TAZO 3.375 GM IV (PMX) 100 ML IVPB SCH ×4 (05:23→23:25)
[2018-12-30] MEDS: LANSOPRAZOLE 30 MG CAP PO SCH (05:24)
[2018-12-30] MEDS: HYDROCHLOROTHIAZIDE 25 MG TAB PO SCH (05:24)
--- NOTE | 2018-12-30 07:53 | CONS ---
Assessment/Plan Assessment/Plan Assessment/Plan (Daily) Reviewed notes from pulmonary medicine, infectious disease, nephrology. I've had multiple conversation with patient son the general consensus is that she is improving however overall prognosis is extremely poor . Patient is a do not resuscitate. I have spoken to Bioethics Pocketbook Maker however at this time will maintain observation not ask for Bioethics conference pending patients ongoing clinical condition. Patient daughter will be arriving from [facility] on 2018, ongoing level of care will be discussed at that time. Patient is not interested in ongoing artificial life support. Consultation Date/Type/Reason Admit Date/Time Dec 22, 2018 at 23:55 Date/Time of Note DATE: 12/30/18 TIME: 07:52 Past Medical History Home Meds Reported Medications Metoprolol Tartrate* (Lopressor*) 50 Mg Tab, 50 MG PO BID, #60 TAB 12/23/18 Aspirin* (Aspirin* Chew) 81 Mg Tab.chew, 81 MG PO DAILY, TAB.CHEW 12/23/18 Atorvastatin* (Atorvastatin*) 80 Mg Tablet, 80 MG PO QHS, #30 TAB 12/23/18 Donepezil* (Donepezil*) 5 Mg Tablet, 5 MG PO DAILY, #30 TAB 12/23/18 Medications Current Medications Labetalol HCl (Labetalol) 20 mg Q20M PRN IV ELEVATED BLOOD PRESSURE Last administered on 12/22/18at 17:44; Admin Dose 20 MG; Start 12/22/18 at 17:30 Ondansetron HCl (Zofran Inj) 4 mg Q6H PRN IV NAUSEA AND/OR VOMITING Last adm inistered on 12/23/18at 05:15; Admin Dose 4 MG; Start 12/22/18 at 23:00 Albuterol (Ventolin Hfa) 4 puff Q2H RESP THERAPY PRN INH SHORTNESS OF BREATH; Start 12/22/18 at 23:00 Ipratropium [place] (Atrovent Hfa) 4 puff Q2H RESP THERAPY PRN INH SHORTNESS OF BREATH; Start 12/22/18 at 23:00 Acetaminophen (Tylenol Supp) 650 mg Q4H PRN [place] PAIN LEVEL 1-3 OR FEVER Last administered on 12/24/18at 20:34; Admin Dose 650 MG; Start 12/22/18 at 23:00 Propofol 100 ml @ 2.387 mls/ hr PER PROTOCOL IV ; Start 12/22/18 at 23:00 Diphenhydramine HCl (Benadryl) 25 mg Q6H PRN IV ITCHING; Start 12/23/18 at 00:00 Morphine Sulfate (morphine) 2 mg Q2H PRN IV SEVERE PAIN LEVEL 7-10 Last administered on 12/23/18 13:26; Admin Dose 2 MG; Start 12/23/18 at 09:30 Lansoprazole (Prevacid) 30 mg DAILY@06 PO Last administered on 12/30/18 05:24; Admin Dose 30 MG; Start 12/26/18 at 06:00 Nicardipine HCl 50 mg/Sodium Chloride 500 ml @ 50 mls/hr TITRATE IV Last administered on 12/29/18 19:59; Admin Dose 150 MLS/HR; Start 12/25/18 at 20:00 Levetiracetam 100 ml @ 400 mls/hr Q12 IVPB Last administered on 12/29/18 20 :35; Admin Dose 400 MLS/HR; Start 12/25/18 at 23:00 Lorazepam (Ativan) 1 mg [id number] PRN IV SEIZURES Last administered on 12/29/18 20:59; Admin Dose 1 MG; Start 12/25/18 at 23:00 Acetaminophen (Tylenol Liquid) 650 mg Q4H PRN NGT MILD PAIN(1-3)OR ELEVATED TEMP Last administered on 12/28/18 15:38; Admin Dose 650 MG; Start 12/26/18 at 05:00 Piperacillin Sod/ Tazobactam Sod 100 ml @ 200 mls/hr Q6 IVPB Last administered on 12/30/18 05:23; Admin Dose 200 MLS/HR; Start 12/26/18 at 06:00 Metoprolol Tartrate (Lopressor) 50 mg BID PO Last administered on 12/29/18 20:34; Admin Dose 50 MG; Start 12/27/18 at 21:00 Hydralazine HCl (Apresoline) 10 mg Q6H PRN IV SBP> 140 Last administered on 12/29/18at 12:44; Admin Dose 10 MG; Start 12/27/18 at 15:30 Hydralazine HCl (Apresoline) 25 mg Q8H NGT Last administered on 12/29/18at 23:21; Admin Dose 25 MG; Start 12/28/18 at 16:00 Eye Lubricant (Artificial Tears Oph) 2 drop QID BOTH EYES Last administered on 12/29/18at 20:35; Admin Dose 2 DROP; Start 12/29/18 at 13:00 Eye Lubricant (Artificial Tears Oph) 2 drop Q6H PRN BOTH EYES DRY EYES; Start 12/29/18 at 10:00 Hydrochlorothiazide (Hydrochlorothiazide) 25 mg DAILY@0600 PO Last administered on 12/30/18 05:24; Admin Dose 25 MG; Start 12/30/18 at 06:00 Nifedipine (Procardia Xl) 30 mg BID PO Last administered on 12/29/18 20:35; Admin Dose 30 MG; Start 12/29/18 at 21:00 Polyethylene Glycol (Miralax) 17 gm DAILY NGT Last administered on 12/29/18at 18:11; Admin Dose 17 GM; Start 12/29/18 at 18:00 Chlorpromazine (Thorazine) 25 mg TID PRN PO HICCUPS Last administered on 12/30/18at 00:54; Admin Dose 25 MG; Start 12/30/18 at 00:00; Stop 12/31/18 at 00:00 Allergies: Coded Allergies: Unknown: Unable to obtain (Unverified , 12/22/18) Social History Smoking Status: Current every day smoker Exam/Review of Systems Exam Vitals Vital Signs Date Temp Pulse Resp B/P (MAP) Pulse Ox O2 O2 Flow FiO2 Time Delivery Rate 12/30/18 81 18 132/80 100 06:45 (97) 12/30/18 Mechanical 06:00 Ventilator 12/30/18 40 05:01 12/30/18 98.0 04:00 Intake and Output 12/29/18 12/29/18 12/30/18 1515:00 23:00 07:00 IntakeIntake Total 1872.5 ml 1885.0 ml 700 ml OutputOutput Total 1106 ml 1487 ml 971 ml BalanceBalance 766.5 ml 398.0 ml -271 ml Results Result Diagram: 12/30/18 0410 12/30/18 0410 Results 24hrs Laboratory Tests Test 12/29/18 21:13 12/30/18 04:10 White Blood Count 8.2 7.2 Red Blood Count 3.84 L 3.89 L Hemoglobin 9.8 L 10.0 L Hematocrit 31.6 L 31.8 L Mean Corpuscular Volume 82.3 81.7 L Mean Corpuscular Hemoglobin 25.5 L 25.7 L Mean Corpuscular Hemoglobin Concent 31.0 L 31.4 L Red Cell Distribution Width 16.2 H 16.2 H Platelet Count 247 236 Mean Platelet Volume 10.4 9.9 Immature Granulocytes % 0.400 0.400 Neutrophils % 84.9 H 81.2 H Lymphocytes % 7.1 L 9.9 L Monocytes % 6.9 7.4 Eosinophils % 0.5 0.8 Basophils % 0.2 0.3 Nucleated Red Blood Cells % 0.0 0.0 Immature Granulocytes # 0.030 0.030 Neutrophils # 6.9 5.8 Lymphocytes # 0.6 L 0.7 L Monocytes # 0.6 0.5 Eosinophils # 0.0 0.1 Basophils # 0.0 0.0 Nucleated Red Blood Cells # 0.0 0.0 Sodium Level 142 140 Potassium Level 3.5 3.5 Chloride Level 109 108 Carbon Dioxide Level 26 27 Anion Gap 7 5 Blood Urea Nitrogen 25 H 27 H Creatinine 0.80 0.83 Est Glomerular Filtrat Rate mL/min > 60 > 60 Glucose Level 144 136 Calcium Level 8.5 8.6 Phosphorus Level 3.2 3.6 Magnesium Level 2.1 2.1 Total Bilirubin 0.4 Direct Bilirubin 0.00 Indirect Bilirubin 0.4 Aspartate Amino Transf (AST/SGOT) 36 Alanine Aminotransferase (ALT/SGPT) 42 Alkaline Phosphatase 71 Total Protein 6.2 Albumin 2.8 L Globulin 3.40 H Albumin/Globulin Ratio 0.82 Medications Medication Current Medications Labetalol HCl (Labetalol) 20 mg Q20M PRN IV ELEVATED BLOOD PRESSURE Last administered on 12/22/18at 17:44; Admin Dose 20 MG; Start 12/22/18 at 17:30 Ondansetron HCl (Zofran Inj) 4 mg Q6H PRN IV NAUSEA AND/OR VOMITING Last a dministered on 12/23/18at 05:15; Admin Dose 4 MG; Start 12/22/18 at 23:00 Albuterol (Ventolin Hfa) 4 puff Q2H RESP THERAPY PRN INH SHORTNESS OF BREATH; Start 12/22/18 at 23:00 Ipratropium [place] (Atrovent Hfa) 4 puff Q2H RESP THERAPY PRN INH SHORTNESS OF BREATH; Start 12/22/18 at 23:00 Acetaminophen (Tylenol Supp) 650 mg Q4H PRN [place] PAIN LEVEL 1-3 OR FEVER Last administered on 12/24/18 20:34; Admin Dose 650 MG; Start 12/22/18 at 23:00 Propofol 100 ml @ 2.387 mls/ hr PER PROTOCOL IV ; Start 12/22/18 at 23:00 Diphenhydramine HCl (Benadryl) 25 mg Q6H PRN IV ITCHING; Start 12/23/18 at 00:00 Morphine Sulfate (morphine) 2 mg Q2H PRN IV SEVERE PAIN LEVEL 7-10 Last administered on 12/23/18 13:26; Admin Dose 2 MG; Start 12/23/18 at 09:30 Lansoprazole (Prevacid) 30 mg DAILY@06 PO Last administered on 12/30/18 05:24; Admin Dose 30 MG; Start 12/26/18 at 06:00 Nicardipine HCl 50 mg/Sodium Chloride 500 ml @ 50 mls/hr TITRATE IV Last administered on 12/29/18 19:59; Admin Dose 150 MLS/HR; Start 12/25/18 at 20:00 Levetiracetam 100 ml @ 400 mls/hr Q12 IVPB Last administered on 12/29/18 20:35; Admin Dose 400 MLS/HR; Start 12/25/18 at 23:00 Lorazepam (Ativan) 1 mg [id number] PRN IV SEIZURES Last administered on 12/29/18 20:59; Admin Dose 1 MG; Start 12/25/18 at 23:00 Acetaminophen (Tylenol Liquid) 650 mg Q4H PRN NGT MILD PAIN(1-3)OR ELEVATED TEMP Last administered on 12/28/18 15:38; Admin Dose 650 MG; Start 12/26/18 at 05:00 Piperacillin Sod/ Tazobactam Sod 100 ml @ 200 mls/hr Q6 IVPB Last administered on 12/30/18 05:23; Admin Dose 200 MLS/HR; Start 12/26/18 at 06:00 Metoprolol Tartrate (Lopressor) 50 mg BID PO Last administered on 12/29/18 20:34; Admin Dose 50 MG; Start 12/27/18 at 21:00 Hydralazine HCl (Apresoline) 10 mg Q6H PRN IV SBP> 140 Last administered on 12/05 12:44; Admin Dose 10 MG; Start 12/27/18 at 15:30 Hydralazine HCl (Apresoline) 25 mg Q8H NGT Last administered on 12/29/18 23:21; Admin Dose 25 MG; Start 12/28/18 at 16:00 Eye Lubricant (Artificial Tears Oph) 2 drop QID BOTH EYES Last administered on 12/29/18 20:35; Admin Dose 2 DROP; Start 12/29/18 at 13:00 Eye Lubricant (Artificial Tears Oph) 2 drop Q6H PRN BOTH EYES DRY EYES; Start 12/29/18 at 10:00 Hydrochlorothiazide (Hydrochlorothiazide) 25 mg DAILY@0600 PO Last administered on 12/30/18 05:24; Admin Dose 25 MG; Start 12/30/18 at 06:00 Nifedipine (Procardia Xl) 30 mg BID PO Last administered on 12/29/18 20:35; Admin Dose 30 MG; Start 12/29/18 at 21:00 Polyethylene Glycol (Miralax) 17 gm DAILY NGT Last administered on 12/29/18 18:11; Admin Dose 17 GM; Start 12/29/18 at 18:00 Chlorpromazine (Thorazine) 25 mg TID PRN PO HICCUPS Last administered on 12/30/18 00:54; Admin Dose 25 MG; Start 12/30/18 at 00:00; Stop 12/31/18 at 00:00 ANGELES MILLER Dec 30, 2018 07:53
[2018-12-30] MEDS: ARTIFICIAL TEARS 15 ML OPH BOTH EYES SCH ×4 (09:18→21:16)
[2018-12-30] MEDS: METOPROLOL 50 MG TAB PO SCH ×2 (09:18→21:15)
[2018-12-30] MEDS: POLYETHYLENE GLYCOL 17 GM PACKET NGT SCH (09:18)
[2018-12-30] MEDS: LEVETIRACETAM 1000 MG (PMX) 100 ML IVPB SCH ×2 (09:18→21:15)
[2018-12-30] MEDS: NIFEdipine (XL) 30 MG TAB PO SCH ×2 (09:18→21:15)
--- NOTE | 2018-12-30 09:21 | CONS ---
Assessment/Plan Assessment/Plan Assessment/Plan (Recall) 63 M c/ reported Hx of CAD s/p CABG, who presents for evaluation of severe headache. Found to have a large R cerebellar hemorrhage...requiring occipital craniectomy and EVD placement.. CTA head is without obvious vascular malformation/aneurysm. MRI brain certainly confirms acute infarcts melba-hematoma...however, the burden of ischemia is small, and likely the direct result of compression.. Notable are chronic lacunes as well... His prognosis for meaningful neurologic recovery is uncertain, and presently guarded... Now w/ frequent, episodic abnl truncal movements suspicious for hiccups Repeat head CT was without obvious acute intracranial pathology EEG is negative for epileptiform discharges P: Continued BP control to goal SBP < 160 Continue to limit sedating medications where possible Avoid antiplatelets/anticoagulants in the short-term Post-op management per neurosurgery Other management and supportive care per primary Will sign off for now; please call w/ ?s Consultation Date/Type/Reason Admit Date/Time Dec 22, 2018 at 23:55 Type of Consult Neurology Reason for Consultation I[facility] Requesting Provider: MICHAEL GOTTLIEB Date/Time of Note DATE: 12/30/18 TIME: 09:20 24 HR Interval Summary Free Text/Dictation Continues icu care Exam/Review of Systems Exam Vitals Vital Signs Date Temp Pulse Resp B/P (MAP) Pulse Ox O2 O2 Flow FiO2 Time Delivery Rate 12/30/18 81 18 132/80 100 06:45 (97) 12/30/18 Mechanical 06:00 Ventilator 12/30/18 40 05:01 12/30/18 98.0 04:00 Intake and Output 12/29/18 12/29/18 12/30/18 1515:00 23:00 07:00 IntakeIntake Total 1872.5 ml 1885.0 ml 700 ml OutputOutput Total 1106 ml 1487 ml 971 ml BalanceBalance 766.5 ml 398.0 ml -271 ml Exam PE: Gen Appearance: No Apparent Distress HEENT: Intubated Cardiovascular: Regular rate Abdomen: Soft Extremities: Dry NE: The patient was obtunded and nonverbal. Cranial nerve examination was limited by mental status. Pupils were equal and reactive to light. There was no afferent pupillary defect. Funduscopic exa mination was limited. Face was grossly symmetric, w/ present corneal and cough reflexes. Tone was normal. Muscle bulk was normal. I did not see fasciculations. The patient opened eyes and withdrew to noxious stimulation in lower limbs.. Coordination and gait testing was limited by mental status. Arm and leg reflexes were symmetric. Hu's sign was absent. Plantar responses were flexor. Results Result Diagram: 12/30/18 0410 12/30/18 0410 Results 24hrs Laboratory Tests Test 12/29/18 21:13 12/30/18 04:10 White Blood Count 8.2 7.2 Red Blood Count 3.84 L 3.89 L Hemoglobin 9.8 L 10.0 L Hematocrit 31.6 L 31.8 L Mean Corpuscular Volume 82.3 81.7 L Mean Corpuscular Hemoglobin 25.5 L 25.7 L Mean Corpuscular Hemoglobin Concent 31.0 L 31.4 L Red Cell Distribution Width 16.2 H 16.2 H Platelet Count 247 236 Mean Platelet Volume 10.4 9.9 Immature Granulocytes % 0.400 0.400 Neutrophils % 84.9 H 81.2 H Lymphocytes % 7.1 L 9.9 L Monocytes % 6.9 7.4 Eosinophils % 0.5 0.8 Basophils % 0.2 0.3 Nucleated Red Blood Cells % 0.0 0.0 Immature Granulocytes # 0.030 0.030 Neutrophils # 6.9 5.8 Lymphocytes # 0.6 L 0.7 L Monocytes # 0.6 0.5 Eosinophils # 0.0 0.1 Basophils # 0.0 0.0 Nucleated Red Blood Cells # 0.0 0.0 Sodium Level 142 140 Potassium Level 3.5 3.5 Chloride Level 109 108 Carbon Dioxide Level 26 27 Anion Gap 7 5 Blood Urea Nitrogen 25 H 27 H Creatinine 0.80 0.83 Est Glomerular Filtrat Rate mL/min > 60 > 60 Glucose Level 144 136 Calcium Level 8.5 8.6 Phosphorus Level 3.2 3.6 Magnesium Level 2.1 2.1 Total Bilirubin 0.4 Direct Bilirubin 0.00 Indirect Bilirubin 0.4 Aspartate Amino Transf (AST/SGOT) 36 Alanine Aminotransferase (ALT/SGPT) 42 Alkaline Phosphatase 71 Total Protein 6.2 Albumin 2.8 L Globulin 3.40 H Albumin/Globulin Ratio 0.82 Medications Medication Current Medications Labetalol HCl (Labetalol) 20 mg Q20M PRN IV ELEVATED BLOOD PRESSURE Last administered on 12/22/18 17:44; Admin Dose 20 MG; Start 12/22/18 at 17:30 Ondansetron HCl (Zofran Inj) 4 mg Q6H PRN IV NAUSEA AND/OR VOMITING Last administered on 12/23/18 05:15; Admin Dose 4 MG; Start 12/22/18 at 23:00 Albuterol (Ventolin Hfa) 4 puff Q2H RESP THERAPY PRN INH SHORTNESS OF BREATH; Start 12/22/18 at 23:00 Ipratropium [place] (Atrovent Hfa) 4 puff Q2H RESP THERAPY PRN INH SHORTNESS OF BREATH; Start 12/22/18 at 23:00 Acetaminophen (Tylenol Supp) 650 mg Q4H PRN [place] PAIN LEVEL 1-3 OR FEVER Last administered on 12/24/18 20:34; Admin Dose 650 MG; Start 12/22/18 at 23:00 Propofol 100 ml @ 2.387 mls/ hr PER PROTOCOL IV ; Start 12/22/18 at 23:00 Diphenhydramine HCl (Benadryl) 25 mg Q6H PRN IV ITCHING; Start 12/23/18 at 00:00 Morphine Sulfate (morphine) 2 mg Q2H PRN IV SEVERE PAIN LEVEL 7-10 Last administered on 12/23/18 13:26; Admin Dose 2 MG; Start 12/23/18 at 09:30 Lansoprazole (Prevacid) 30 mg DAILY@06 PO Last administered on 12/30/18 05:24; Admin Dose 30 MG; Start 12/26/18 at 06:00 Nicardipine HCl 50 mg/Sodium Chloride 500 ml @ 50 mls/hr TITRATE IV Last administered on 12/29/18 19:59; Admin Dose 150 MLS/HR; Start 12/25/18 at 20:00 Levetiracetam 100 ml @ 400 mls/hr Q12 IVPB Last administered on 12/30/18 09:18; Admin Dose 400 MLS/HR; Start 12/25/18 at 23:00 Lorazepam (Ativan) 1 mg [id number] PRN IV SEIZURES Last administered on 12/29/18 20:59; Admin Dose 1 MG; Start 12/25/18 at 23:00 Acetaminophen (Tylenol Liquid) 650 mg Q4H PRN NGT MILD PAIN(1-3)OR ELEVATED TEMP Last administered on 12/28/18 15:38; Admin Dose 650 MG; Start 12/26/18 at 05:00 Piperacillin Sod/ Tazobactam Sod 100 ml @ 200 mls/hr Q6 IVPB Last administered on 12/30/18 05:23; Admin Dose 200 MLS/HR; Start 12/26/18 at 06:00 Metoprolol Tartrate (Lopressor) 50 mg BID PO Last administered on 12/30/18 09:18; Admin Dose 50 MG; Start 12/27/18 at 21:00 Hydralazine HCl (Apresoline) 10 mg Q6H PRN IV SBP> 140 Last administered on 12/29/18 12:44; Admin Dose 10 MG; Start 12/27/18 at 15:30 Hydralazine HCl (Apresoline) 25 mg Q8H NGT Last administered on 12/30/18 09:17; Admin Dose 25 MG; Start 12/28/18 at 16:00 Eye Lubricant (Artificial Tears Oph) 2 drop QID BOTH EYES Last administered on 12/30/18 09:18; Admin Dose 2 DROP; Start 12/29/18 at 13:00 Eye Lubricant (Artificial Tears Oph) 2 drop Q6H PRN BOTH EYES DRY EYES; Start 12/29/18 at 10:00 Hydrochlorothiazide (Hydrochlorothiazide) 25 mg DAILY@0600 PO Last administered on 12/30/18 05:24; Admin Dose 25 MG; Start 12/30/18 at 06:00 Nifedipine (Procardia Xl) 30 mg BID PO Last administered on 12/30/18 09:18; Admin Dose 30 MG; Start 12/29/18 at 21:00 Polyethylene Glycol (Miralax) 17 gm DAILY NGT Last administered on 12/30/18 09:18; Admin Dose 17 GM; Start 12/29/18 at 18:00 Chlorpromazine (Thorazine) 25 mg TID PRN PO HICCUPS Last administered on 12/30/18 00:54; Admin Dose 25 MG; Start 12/30/18 at 00:00; Stop 12/31/18 at 00:00 TONIA BALDWIN Dec 30, 2018 09:21
--- NOTE | 2018-12-30 12:16 | PN ---
Date/Time of Note Date/Time of Note DATE: 12/30/18 TIME: 12:15 Assessment/Plan VTE Prophylaxis Risk score (from Ns)>0 risk: 12 SCD applied (from Ns): Yes Pharmacological prophylaxis: NA/contraindicated Pharm contraindication: other Lines/Catheters IV Catheter Type (from [facility]): Midline Assessment/Plan Hospital Course 63-year-old male with a past medical history of high blood pressure and chronic tobacco use only who presented to the emergency room with sudden onset of severe headache and collapse in the emergency room was found to have large right cerebellar hemorrhage extending into the ventricles and was emergently rushed to the operating room for suboccipital craniectomy for evacuation of hematoma with right frontal ventriculostomy. He has been managed postoperatively in the ICU as follows: 1. Acute encephalopathy secondary to #2 -patient remains obtunded and has eyes open but no real neurologic response -Patient has poor long-term overall prognosis, family updated on consult, will continue to follow, continue current management 2. 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 -MRI continues to show residual right cerebellar hematoma and moderate bilateral hydrocephalus. -drain still in place -per neurology, Keppra not indicated, dc? -may need shunt per nsg but will not change terminal clerk prognosis per notes, defer decision to neurosurgery and family 3. 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 Acute respiratory failure secondary to the above -patient remains ventilator dependent, mild increase in O2 requirements overnight 5. Chronic hypertension: -cardene weaning in process, good control, BP goal Systolic 130mmhg or less 6. Systemic inflammatory response syndrome rule out impending sepsis secondary to the above -continue abx for now, repeat cultures, le dopplers to r/o DVT 7. Neurogenic dysphagia on NG tube feedings DC planning: Family meeting tomorrow to discuss goals of care Result Diagram: 12/30/1840912/30/18409 Results 24hrs Laboratory Tests Test 12/29/18 21:13 12/30/18 04:10 White Blood Count 8.2 7.2 Red Blood Count 3.84 L 3.89 L Hemoglobin 9.8 L 10.0 L Hematocrit 31.6 L 31.8 L Mean Corpuscular Volume 82.3 81.7 L Mean Corpuscular Hemoglobin 25.5 L 25.7 L Mean Corpuscular Hemoglobin Concent 31.0 L 31.4 L Red Cell Distribution Width 16.2 H 16.2 H Platelet Count 247 236 Mean Platelet Volume 10.4 9.9 Immature Granulocytes % 0.400 0.400 Neutrophils % 84.9 H 81.2 H Lymphocytes % 7.1 L 9.9 L Monocytes % 6.9 7.4 Eosinophils % 0.5 0.8 Basophils % 0.2 0.3 Nucleated Red Blood Cells % 0.0 0.0 Immature Granulocytes # 0.030 0.030 Neutrophils # 6.9 5.8 Lymphocytes # 0.6 L 0.7 L Monocytes # 0.6 0.5 Eosinophils # 0.0 0.1 Basophils # 0.0 0.0 Nucleated Red Blood Cells # 0.0 0.0 Sodium Level 142 140 Potassium Level 3.5 3.5 Chloride Level 109 108 Carbon Dioxide Level 26 27 Anion Gap 7 5 Blood Urea Nitrogen 25 H 27 H Creatinine 0.80 0.83 Est Glomerular Filtrat Rate mL/min > 60 > 60 Glucose Level 144 136 Calcium Level 8.5 8.6 Phosphorus Level 3.2 3.6 Magnesium Level 2.1 2.1 Total Bilirubin 0.4 Direct Bilirubin 0.00 Indirect Bilirubin 0.4 Aspartate Amino Transf (AST/SGOT) 36 Alanine Aminotransferase (ALT/SGPT) 42 Alkaline Phosphatase 71 Total Protein 6.2 Albumin 2.8 L Globulin 3.40 H Albumin/Globulin Ratio 0.82 Subjective 24 Hr Interval Summary Subjective hx not possible: pt non-verbal Exam/Review of Systems Exam Vitals Vital Signs Date Temp Pulse Resp B/P (MAP) Pulse Ox O2 O2 Flow FiO2 Time Delivery Rate 12/30/18 70 22 100 30 11:10 12/30/18 104/74 Mechanical 11:00 (84) Ventilator 12/30/18 99.9 08:00 Intake and Output 12/29/18 12/29/18 12/30/18 1515:00 23:00 07:00 IntakeIntake Total 1872.5 ml 1885.0 ml 700 ml OutputOutput Total 1106 ml 1487 ml 971 ml BalanceBalance 766.5 ml 398.0 ml -271 ml Constitutional: non-verbal ENMT: intubated Respiratory: clear to auscultation Cardiovascular: regular rate and rhythm Gastrointestinal: soft; No distended Musculoskeletal: nl extremities to inspection Results Results 24hrs Laboratory Tests Test 12/29/18 21:13 12/30/18 04:10 White Blood Count 8.2 7.2 Red Blood Count 3.84 L 3.89 L Hemoglobin 9.8 L 10.0 L Hematocrit 31.6 L 31.8 L Mean Corpuscular Volume 82.3 81.7 L Mean Corpuscular Hemoglobin 25.5 L 25.7 L Mean Corpuscular Hemoglobin Concent 31.0 L 31.4 L Red Cell Distribution Width 16.2 H 16.2 H Platelet Count 247 236 Mean Platelet Volume 10.4 9.9 Immature Granulocytes % 0.400 0.400 Neutrophils % 84.9 H 81.2 H Lymphocytes % 7.1 L 9.9 L Monocytes % 6.9 7.4 Eosinophils % 0.5 0.8 Basophils % 0.2 0.3 Nucleated Red Blood Cells % 0.0 0.0 Immature Granulocytes # 0.030 0.030 Neutrophils # 6.9 5.8 Lymphocytes # 0.6 L 0.7 L Monocytes # 0.6 0.5 Eosinophils # 0.0 0.1 Basophils # 0.0 0.0 Nucleated Red Blood Cells # 0.0 0.0 Sodium Level 142 140 Potassium Level 3.5 3.5 Chloride Level 109 108 Carbon Dioxide Level 26 27 Anion Gap 7 5 Blood Urea Nitrogen 25 H 27 H Creatinine 0.80 0.83 Est Glomerular Filtrat Rate mL/min > 60 > 60 Glucose Level 144 136 Calcium Level 8.5 8.6 Phosphorus Level 3.2 3.6 Magnesium Level 2.1 2.1 Total Bilirubin 0.4 Direct Bilirubin 0.00 Indirect Bilirubin 0.4 Aspartate Amino Transf (AST/SGOT) 36 Alanine Aminotransferase (ALT/SGPT) 42 Alkaline Phosphatase 71 Total Protein 6.2 Albumin 2.8 L Globulin 3.40 H Albumin/Globulin Ratio 0.82 Medications Medication Current Medications Labetalol HCl (Labetalol) 20 mg Q20M PRN IV ELEVATED BLOOD PRESSURE Last ad ministered on 12/22/18at 17:44; Admin Dose 20 MG; Start 12/22/18 at 17:30 Ondansetron HCl (Zofran Inj) 4 mg Q6H PRN IV NAUSEA AND/OR VOMITING Last administered on 7/20/19at 05:15; Admin Dose 4 MG; Start 12/22/18 at 23:00 Albuterol (Ventolin Hfa) 4 puff Q2H RESP THERAPY PRN INH SHORTNESS OF BREATH; Start 12/22/18 at 23:00 Ipratropium [place] (Atrovent Hfa) 4 puff Q2H RESP THERAPY PRN INH SHORTNESS OF BREATH; Start 12/22/18 at 23:00 Acetaminophen (Tylenol Supp) 650 mg Q4H PRN [place] PAIN LEVEL 1-3 OR FEVER Last administered on 12/24/18 20:34; Admin Dose 650 MG; Start 12/22/18 at 23:00 Propofol 100 ml @ 2.387 mls/ hr PER PROTOCOL IV ; Start 12/22/18 at 23:00 Diphenhydramine HCl (Benadryl) 25 mg Q6H PRN IV ITCHING; Start 12/23/18 at 00:00 Morphine Sulfate (morphine) 2 mg Q2H PRN IV SEVERE PAIN LEVEL 7-10 Last administered on 12/23/18 13:26; Admin Dose 2 MG; Start 12/23/18 at 09:30 Lansoprazole (Prevacid) 30 mg DAILY@06 PO Last administered on 12/30/18 05:24; Admin Dose 30 MG; Start 12/26/18 at 06:00 Nicardipine HCl 50 mg/Sodium Chloride 500 ml @ 50 mls/hr TITRATE IV Last administered on 12/29/18 19:59; Admin Dose 150 MLS/HR; Start 12/25/18 at 20:00 Levetiracetam 100 ml @ 400 mls/hr Q12 IVPB Last administered on 12/30/18 09:18; Admin Dose 400 MLS/HR; Start 12/25/18 at 23:00 Lorazepam (Ativan) 1 mg [id number] PRN IV SEIZURES Last administered on 12/29/18 20:59; Admin Dose 1 MG; Start 12/25/18 at 23:00 Acetaminophen (Tylenol Liquid) 650 mg Q4H PRN NGT MILD PAIN(1-3)OR ELEVATED TEMP Last administered on 12/28/18 15:38; Admin Dose 650 MG; Start 12/26/18 at 05:00 Piperacillin Sod/ Tazobactam Sod 100 ml @ 200 mls/hr Q6 IVPB Last administered on 12/30/18 05:23; Admin Dose 200 MLS/HR; Start 12/26/18 at 06:00 Metoprolol Tartrate (Lopressor) 50 mg BID PO Last administered on 12/30/18 09:18; Admin Dose 50 MG; Start 12/27/18 at 21:00 Hydralazine HCl (Apresoline) 10 mg Q6H PRN IV SBP> 140 Last administered on 12/29/18 12:44; Admin Dose 10 MG; Start 12/27/18 at 15:30 Hydralazine HCl (Apresoline) 25 mg Q8H NGT Last administered on 12/30/18 09:17; Admin Dose 25 MG; Start 12/28/18 at 16:00 Eye Lubricant (Artificial Tears Oph) 2 drop QID BOTH EYES Last administered on 12/30/18 09:18; Admin Dose 2 DROP; Start 12/29/18 at 13:00 Eye Lubricant (Artificial Tears Oph) 2 drop Q6H PRN BOTH EYES DRY EYES; Start 12/29/18 at 10:00 Hydrochlorothiazide (Hydrochlorothiazide) 25 mg DAILY@0600 PO Last administered on 12/30/18 05:24; Admin Dose 25 MG; Start 12/30/18 at 06:00 Nifedipine (Procardia Xl) 30 mg BID PO Last administered on 12/30/18 09:18; Admin Dose 30 MG; Start 12/29/18 at 21:00 Polyethylene Glycol (Miralax) 17 gm DAILY NGT Last administered on 12/30/18 09:18; Admin Dose 17 GM; Start 12/29/18 at 18:00 Chlorpromazine (Thorazine) 25 mg TID PRN PO HICCUPS Last administered on 12/30/18 09:31; Admin Dose 25 MG; Start 12/30/18 at 00:00; Stop 12/31/18 at 00:00 STEPHANIE SALGUERO Dec 30, 2018 12:16
--- NOTE | 2018-12-30 14:13 | CONS ---
Consult Date/Type/Reason Admit Date/Time Dec 22, 2018 at 23:55 Initial Consult Date Type of Consultation: Pulm/CCM Requesting Provider: MICHAEL GOTTLIEB Date/Time of Note DATE: 12/30/18 TIME: 14:08 Subjective No events. Remains comatose with findings c/w PVS. Objective Vitals Vital Signs Date Temp Pulse Resp B/P (MAP) Pulse Ox O2 O2 Flow FiO2 Time Delivery Rate 12/30/18 81 23 100 30 13:35 12/30/18 104/74 Mechanical 11:00 (84) Ventilator 12/30/18 99.9 08:00 Intake and Output 12/29/18 12/29/18 12/30/18 1515:00 23:00 07:00 IntakeIntake Total 1872.5 ml 1885.0 ml 700 ml OutputOutput Total 1106 ml 1487 ml 971 ml BalanceBalance 766.5 ml 398.0 ml -271 ml Exam NECK: Supple. No JVD. + ET tube CARDIAC: S1, S2, no added sounds or murmurs. CHEST: Diminished air entry bilaterally. ABDOMEN: Soft, nontender. No guarding or rebound. EXTREMITIES: No cyanosis, clubbing, 1+ edema. NEUROLOGIC: Unresponsive on the vent. Results/Medications Result Diagram: 12/30/18 04112/30/18409 Results 24 hrs Laboratory Tests Test 12/29/18 21:13 12/30/18 04:10 White Blood Count 8.2 7.2 Red Blood Count 3.84 L 3.89 L Hemoglobin 9.8 L 10.0 L Hematocrit 31.6 L 31.8 L Mean Corpuscular Volume 82.3 81.7 L Mean Corpuscular Hemoglobin 25.5 L 25.7 L Mean Corpuscular Hemoglobin Concent 31.0 L 31.4 L Red Cell Distribution Width 16.2 H 16.2 H Platelet Count 247 236 Mean Platelet Volume 10.4 9.9 Immature Granulocytes % 0.400 0.400 Neutrophils % 84.9 H 81.2 H Lymphocytes % 7.1 L 9.9 L Monocytes % 6.9 7.4 Eosinophils % 0.5 0.8 Basophils % 0.2 0.3 Nucleated Red Blood Cells % 0.0 0.0 Immature Granulocytes # 0.030 0.030 Neutrophils # 6.9 5.8 Lymphocytes # 0.6 L 0.7 L Monocytes # 0.6 0.5 Eosinophils # 0.0 0.1 Basophils # 0.0 0.0 Nucleated Red Blood Cells # 0.0 0.0 Sodium Level 142 140 Potassium Level 3.5 3.5 Chloride Level 109 108 Carbon Dioxide Level 26 27 Anion Gap 7 5 Blood Urea Nitrogen 25 H 27 H Creatinine 0.80 0.83 Est Glomerular Filtrat Rate mL/min > 60 > 60 Glucose Level 144 136 Calcium Level 8.5 8.6 Phosphorus Level 3.2 3.6 Magnesium Level 2.1 2.1 Total Bilirubin 0.4 Direct Bilirubin 0.00 Indirect Bilirubin 0.4 Aspartate Amino Transf (AST/SGOT) 36 Alanine Aminotransferase (ALT/SGPT) 42 Alkaline Phosphatase 71 Total Protein 6.2 Albumin 2.8 L Globulin 3.40 H Albumin/Globulin Ratio 0.82 Home Meds Reported Medications Metoprolol Tartrate* (Lopressor*) 50 Mg Tab, 50 MG PO BID, #60 TAB 12/23/18 Aspirin* (Aspirin* Chew) 81 Mg Tab.chew, 81 MG PO DAILY, TAB.CHEW 12/23/18 Atorvastatin* (Atorvastatin*) 80 Mg Tablet, 80 MG PO QHS, #30 TAB 12/23/18 Donepezil* (Donepezil*) 5 Mg Tablet, 5 MG PO DAILY, #30 TAB 12/23/18 Medications Current Medications Labetalol HCl (Labetalol) 20 mg Q20M PRN IV ELEVATED BLOOD PRESSURE Last administered on 12/22/18at 17:44; Admin Dose 20 MG; Start 12/22/18 at 17:30 Ondansetron HCl (Zofran Inj) 4 mg Q6H PRN IV NAUSEA AND/OR VOMITING Last administered on 12/23/18at 05:15; Admin Dose 4 MG; Start 12/22/18 at 23:00 Albuterol (Ventolin Hfa) 4 puff Q2H RESP THERAPY PRN INH SHORTNESS OF BREATH; Start 12/22/18 at 23:00 Ipratropium [place] (Atrovent Hfa) 4 puff Q2H RESP THERAPY PRN INH SHORTNESS OF BREATH; Start 12/22/18 at 23:00 Acetaminophen (Tylenol Supp) 650 mg Q4H PRN [place] PAIN LEVEL 1-3 OR FEVER Last administered on 7/21/19at 20:34; Admin Dose 650 MG; Start 12/22/18 at 23:00 Propofol 100 ml @ 2.387 mls/ hr PER PROTOCOL IV ; Start 12/22/18 at 23:00 Diphenhydramine HCl (Benadryl) 25 mg Q6H PRN IV ITCHING; Start 12/23/18 at 00:00 Morphine Sulfate (morphine) 2 mg Q2H PRN IV SEVERE PAIN LEVEL 7-10 Last administered on 12/23/18 13:26; Admin Dose 2 MG; Start 12/23/18 at 09:30 Lansoprazole (Prevacid) 30 mg DAILY@06 PO Last administered on 12/30/18 05:24; Admin Dose 30 MG; Start 12/26/18 at 06:00 Nicardipine HCl 50 mg/Sodium Chloride 500 ml @ 50 mls/hr TITRATE IV Last administered on 12/29/18 19:59; Admin Dose 150 MLS/HR; Start 12/25/18 at 20:00 Levetiracetam 100 ml @ 400 mls/hr Q12 IVPB Last administered on 12/30/18 09:18; Admin Dose 400 MLS/HR; Start 12/25/18 at 23:00 Lorazepam (Ativan) 1 mg [id number] PRN IV SEIZURES Last administered on 12/29/18 20:59; Admin Dose 1 MG; Start 12/25/18 at 23:00 Acetaminophen (Tylenol Liquid) 650 mg Q4H PRN NGT MILD PAIN(1-3)OR ELEVATED TEMP Last administered on 12/28/18 15:38; Admin Dose 650 MG; Start 12/26/18 at 05:00 Piperacillin Sod/ Tazobactam Sod 100 ml @ 200 mls/hr Q6 IVPB Last administered on 12/30/18 13:12; Admin Dose 200 MLS/HR; Start 12/26/18 at 06:00 Metoprolol Tartrate (Lopressor) 50 mg BID PO Last administered on 12/30/18 09:18; Admin Dose 50 MG; Start 12/27/18 at 21:00 Hydralazine HCl (Apresoline) 10 mg Q6H PRN IV SBP> 140 Last administered on 12/29/18 12:44; Admin Dose 10 MG; Start 12/27/18 at 15:30 Hydralazine HCl (Apresoline) 25 mg Q8H NGT Last administered on 12/30/18 09:17; Admin Dose 25 MG; Start 12/28/18 at 16:00 Eye Lubricant (Artificial Tears Oph) 2 drop QID BOTH EYES Last administered on 12/30/18 13:12; Admin Dose 2 DROP; Start 12/29/18 at 13:00 Eye Lubricant (Artificial Tears Oph) 2 drop Q6H PRN BOTH EYES DRY EYES; Start 12/29/18 at 10:00 Hydrochlorothiazide (Hydrochlorothiazide) 25 mg DAILY@0600 PO Last administered on 12/30/18 05:24; Admin Dose 25 MG; Start 12/30/18 at 06:00 Nifedipine (Procardia Xl) 30 mg BID PO Last administered on 12/30/18 09:18; Admin Dose 30 MG; Start 12/29/18 at 21:00 Polyethylene Glycol (Miralax) 17 gm DAILY NGT Last administered on 12/30/18 09:18; Admin Dose 17 GM; Start 12/29/18 at 18:00 Chlorpromazine (Thorazine) 25 mg TID PRN PO HICCUPS Last administered on 12/30/18 09:31; Admin Dose 25 MG; Start 12/30/18 at 00:00; Stop 12/31/18 at 00:00 Assessment/Plan Assessment/Plan (Daily) IMP: 1. Posterior cerebellar hemorrhage with subsequent respiratory failure and ence phalopathy. 2. Status post craniectomy and ventriculostomy 3. Respiratory failure secondary to above 4. Dysphasia secondary to above RECS: 1. ICS score is 4 which carries a 30-day mortality rate > 90% 2. I spoke with family at length about prognosis and potential options, and familiarized them to a time-limited trial. They are not yet ready for transitioning to comfort measures, but do not want chest compressions. 3. Chemical code 40 min cc time CATHIE WILKES MD Dec 30, 2018 14:13
--- NOTE | 2018-12-30 22:42 | PN ---
Date/Time of Note Date/Time of Note DATE: 12/30/18 TIME: 22:39 Assessment/Plan Lines/Catheters IV C[facility]ter Type (from [facility]): Mid Line Assessment/Plan Chief Complaint/Hosp Course POD # 8 s/p suboccipital craniotomy for evacuation of hematoma/ EVD. Poor prognosis. Would consider vegetative at this point, truly comatose given eye opening. Awaiting family to make decision re: further treatment. I spoke to , daughter and sons today and reiterated my recommendations for palliative care but they have yet to make a decision. G-tube/trach/shunt will be necessary if cont. care desired. Subjective 24 Hr Interval Summary Subjective hx not possible: pt non-verbal Exam/Review of Systems Vital Signs Vitals Vital Signs Date Temp Pulse Resp B/P (MAP) Pulse Ox O2 O2 Flow FiO2 Time Delivery Rate 12/30/18 88 18 99 30 21:25 12/30/18 121/78 Mechanical 19:00 (92) Ventilator 12/30/18 98.5 16:00 Intake and Output 12/29/18 12/29/18 12/30/18 1515:00 23:00 07:00 IntakeIntake Total 1872.5 ml 1885.0 ml 750 ml OutputOutput Total 1106 ml 1487 ml 980 ml BalanceBalance 766.5 ml 398.0 ml -230 ml Exam Neurological: other (exam unchanged. eyes partially open. Does not follow commands. No UE movements. No spontaneous movement. ) Results Result Diagram: 12/30/18 0410 12/30/18 0410 JOVANI MCGARRY MD Dec 30, 2018 22:42
[2018-12-31] VITALS (82 sets, daily range): BP systolic 88–183; BP diastolic 62–102; PULSE 66–95; RESP 12–28
[2018-12-31] MEDS: PIPER-TAZO 3.375 GM IV (PMX) 100 ML IVPB SCH ×3 (05:09→17:52)
[2018-12-31] MEDS: LANSOPRAZOLE 30 MG CAP PO SCH (05:09)
[2018-12-31] MEDS: HYDROCHLOROTHIAZIDE 25 MG TAB PO SCH (05:12)
[2018-12-31] MEDS ORDERED: METOCLOPRAMIDE 10 MG INJ IV ONE (05:30)
[2018-12-31] MEDS: niCARdipine 50 MG in SOD CHLORIDE 0.9% 480 ML IV SCH ×2 (07:03→17:52)
--- NOTE | 2018-12-31 08:52 | PN ---
Date/Time of Note Date/Time of Note DATE: 12/31/18 TIME: 08:35 Assessment/Plan Lines/Catheters IV Catheter Type (from [facility]): Mid Line Chaidez in Place (from [facility]): Yes Assessment/Plan Chief Complaint/Hosp Course POD # 9 s/p suboccipital craniotomy for evacuation of hematoma/ EVD. Poor prognosis still. No chance of meaningful recovery. EVD not draining, CT shows blood around catheter. Flushed proximally and distally but still not draining although able to flush proximally. This drain may open but likely would need replacement. Do not recommend this as treatment is futile and will only prolong poor QoL. I expressed this to patient's son who wanted to confer with family. For no will leave in place. Ventricles still smaller despite no drainage for a few hours so likely not acute issue. Will await families decision but recommend comfort care only and no further intervention. Subjective 24 Hr Interval Summary Subjective hx not possible: pt non-verbal Exam/Review of Systems Vital Signs Vitals Vital Signs Date Temp Pulse Resp B/P (MAP) Pulse Ox O2 O2 Flow FiO2 Time Delivery Rate 12/31/18 77 14 141/89 100 06:30 (106) 12/31/18 Mechanical 06:00 Ventilator 12/31/18 30 05:58 12/31/18 99.7 04:00 Intake and Output 12/30/18 12/30/18 12/31/18 1515:00 23:00 07:00 IntakeIntake Total 870 ml 550 ml 750 ml OutputOutput Total 1591 ml 1262 ml 1347 ml BalanceBalance -721 ml -712 ml -597 ml Exam Skin: other (unchanged. Eyes partially open, hiccups. No UE movements, no spontaneous or purposeful movements. No corenal, hypoactive gag, no oculocephalic reflex.) Results Result Diagram: 12/31/18 0410 12/31/[address] head shows smaller ventricles, less intraventricular blood, still swollen p osterior fossa. Catheter still in place but blood around catheter. JOVANI MCGARRY MD Dec 31, 2018 08:45
[2018-12-31] MEDS: NIFEdipine (XL) 30 MG TAB PO SCH ×2 (10:37→21:00)
[2018-12-31] MEDS: METOPROLOL 50 MG TAB PO SCH (10:37)
[2018-12-31] MEDS: ARTIFICIAL TEARS 15 ML OPH BOTH EYES SCH ×4 (10:37→21:34)
[2018-12-31] MEDS: POLYETHYLENE GLYCOL 17 GM PACKET NGT SCH (10:38)
[2018-12-31] MEDS: LEVETIRACETAM 1000 MG (PMX) 100 ML IVPB SCH ×2 (10:48→21:34)
--- NOTE | 2018-12-31 12:44 | CONS ---
Consult Date/Type/Reason Admit Date/Time Dec 22, 2018 at 23:55 Initial Consult Date Type of Consultation: Pulm/CCM Requesting Provider: MICHAEL GOTTLIEB Date/Time of Note DATE: 12/31/18 TIME: 12:41 Subjective No events. Remains comatose on the ventilator. Objective Vitals Vital Signs Date Temp Pulse Resp B/P (MAP) Pulse Ox O2 O2 Flow FiO2 Time Delivery Rate 12/31/18 93 28 99 30 11:58 12/31/18 88/69 (75) 11:15 12/31/18 Mechanical 11:00 Ventilator 12/31/18 99.7 04:00 Intake and Output 12/30/18 12/30/18 12/31/18 1515:00 23:00 07:00 IntakeIntake Total 870 ml 550 ml 800 ml OutputOutput Total 1591 ml 1262 ml 1497 ml BalanceBalance -721 ml -712 ml -697 ml Exam NECK: Supple. No JVD. + ET tube CARDIAC: S1, S2, no added sounds or murmurs. CHEST: Diminished air entry bilaterally. ABDOMEN: Soft, nontender. No guarding or rebound. EXTREMITIES: No cyanosis, clubbing, 1+ edema. NEUROLOGIC: Unresponsive on the vent. Results/Medications Result Diagram: 12/31/1840912/31/18409 Results 24 hrs Laboratory Tests Test 12/31/18 04:10 White Blood Count 8.9 # Red Blood Count 4.33 L Hemoglobin 10.9 L Hematocrit 34.7 L Mean Corpuscular Volume 80.1 L Mean Corpuscular Hemoglobin 25.2 L Mean Corpuscular Hemoglobin Concent 31.4 L Red Cell Distribution Width 15.9 H Platelet Count 306 # Mean Platelet Volume 11.0 H Immature Granulocytes % 0.400 Neutrophils % 81.5 H Lymphocytes % 9.1 L Monocytes % 7.7 Eosinophils % 1.1 Basophils % 0.2 Nucleated Red Blood Cells % 0.0 Immature Granulocytes # 0.040 H Neutrophils # 7.3 Lymphocytes # 0.8 Monocytes # 0.7 Eosinophils # 0.1 Basophils # 0.0 Nucleated Red Blood Cells # 0.0 Sodium Level 139 Potassium Level 3.2 L Chloride Level 105 Carbon Dioxide Level 26 Anion Gap 8 Blood Urea Nitrogen 27 H Creatinine 0.83 Est Glomerular Filtrat Rate mL/min > 60 Glucose Level 113 Calcium Level 8.9 Home Meds Reported Medications Metoprolol Tartrate* (Lopressor*) 50 Mg Tab, 50 MG PO BID, #60 TAB 12/23/18 Aspirin* (Aspirin* Chew) 81 Mg Tab.chew, 81 MG PO DAILY, TAB.CHEW 12/23/18 Atorvastatin* (Atorvastatin*) 80 Mg Tablet, 80 MG PO QHS, #30 TAB 12/23/18 Donepezil* (Donepezil*) 5 Mg Tablet, 5 MG PO DAILY, #30 TAB 12/23/18 Medications Current Medications Labetalol HCl (Labetalol) 20 mg Q20M PRN IV ELEVATED BLOOD PRESSURE Last administered on 12/22/18at 17:44; Admin Dose 20 MG; Start 12/22/18 at 17:30 Ondansetron HCl (Zofran Inj) 4 mg Q6H PRN IV NAUSEA AND/OR VOMITING Last adm inistered on 12/23/18at 05:15; Admin Dose 4 MG; Start 12/22/18 at 23:00 Albuterol (Ventolin Hfa) 4 puff Q2H RESP THERAPY PRN INH SHORTNESS OF BREATH; Start 12/22/18 at 23:00 Ipratropium [place] (Atrovent Hfa) 4 puff Q2H RESP THERAPY PRN INH SHORTNESS OF BREATH; Start 12/22/18 at 23:00 Acetaminophen (Tylenol Supp) 650 mg Q4H PRN [place] PAIN LEVEL 1-3 OR FEVER Last administered on 12/24/18at 20:34; Admin Dose 650 MG; Start 12/22/18 at 23:00 Propofol 100 ml @ 2.387 mls/ hr PER PROTOCOL IV ; Start 12/22/18 at 23:00 Diphenhydramine HCl (Benadryl) 25 mg Q6H PRN IV ITCHING; Start 12/23/18 at 00:00 Morphine Sulfate (morphine) 2 mg Q2H PRN IV SEVERE PAIN LEVEL 7-10 Last administered on 12/23/18at 13:26; Admin Dose 2 MG; Start 12/23/18 at 09:30 Lansoprazole (Prevacid) 30 mg DAILY@06 PO Last administered on 12/31/18at 05:09; Admin Dose 30 MG; Start 12/26/18 at 06:00 Nicardipine HCl 50 mg/Sodium Chloride 500 ml @ 50 mls/hr TITRATE IV Last administered on 12/31/18 07:03; Admin Dose 50 MLS/HR; Start 12/25/18 at 20:00 Levetiracetam 100 ml @ 400 mls/hr Q12 IVPB Last administered on 12/31/18 10: 48; Admin Dose 400 MLS/HR; Start 12/25/18 at 23:00 Lorazepam (Ativan) 1 mg [id number] PRN IV SEIZURES Last administered on 12/29/18 20:59; Admin Dose 1 MG; Start 12/25/18 at 23:00 Acetaminophen (Tylenol Liquid) 650 mg Q4H PRN NGT MILD PAIN(1-3)OR ELEVATED TEMP Last administered on 12/28/18 15:38; Admin Dose 650 MG; Start 12/26/18 at 05:00 Piperacillin Sod/ Tazobactam Sod 100 ml @ 200 mls/hr Q6 IVPB Last administered on 12/31/18 05:09; Admin Dose 200 MLS/HR; Start 12/26/18 at 06:00 Metoprolol Tartrate (Lopressor) 50 mg BID PO Last administered on 12/31/18 10:37; Admin Dose 50 MG; Start 12/27/18 at 21:00 Hydralazine HCl (Apresoline) 10 mg Q6H PRN IV SBP> 140 Last administered on 12/29/18 12:44; Admin Dose 10 MG; Start 12/27/18 at 15:30 Hydralazine HCl (Apresoline) 25 mg Q8H NGT Last administered on 12/31/18 10:36; Admin Dose 25 MG; Start 12/28/18 at 16:00 Eye Lubricant (Artificial Tears Oph) 2 drop QID BOTH EYES Last administered on 12/31/18 10:37; Admin Dose 2 DROP; Start 12/29/18 at 13:00 Eye Lubricant (Artificial Tears Oph) 2 drop Q6H PRN BOTH EYES DRY EYES; Start 12/29/18 at 10:00 Hydrochlorothiazide (Hydrochlorothiazide) 25 mg DAILY@0600 PO Last administered on 12/31/18 05:12; Admin Dose 25 MG; Start 12/30/18 at 06:00 Nifedipine (Procardia Xl) 30 mg BID PO Last administered on 12/31/18at 10:37; Admin Dose 30 MG; Start 12/29/18 at 21:00 Polyethylene Glycol (Miralax) 17 gm DAILY NGT Last administered on 12/31/18at 10:38; Admin Dose 17 GM; Start 12/29/18 at 18:00 Assessment/Plan Assessment/Plan (Daily) IMP: 1. Posterior cerebellar hemorrhage--> ICH score based on the initial CT is actually 5, which carries a near 100% 30 day mortality. 2. Status post craniectomy and ventriculostomy 3. Respiratory failure secondary to above 4. FEN- hypokalemia RECS: 1. Patient now chemical code post discussion with family 2. Will continue a brief time-limited trial after which, if no improvements will transition to comfort measures 3. Replete lytes 4. TF/Free H20 40 min cc time CATHIE WILKES MD Dec 31, 2018 12:44
[2018-12-31] MEDS ORDERED: POTASSIUM CHLORIDE 100 ML IVPB ONE (13:00)
--- NOTE | 2018-12-31 14:21 | PN ---
Date/Time of Note Date/Time of Note DATE: 12/31/18 TIME: 14:20 Assessment/Plan VTE Prophylaxis Risk score (from Nsg)>0 risk: 8 Pharmacological prophylaxis: NA/contraindicated Pharm contraindication: other Lines/Catheters IV Catheter Type (from [facility]): Mid Line Assessment/Plan Hospital Course 63-year-old male with a past medical history of high blood pressure and chronic tobacco use only who presented to the emergency room with sudden onset of severe headache and collapse in the emergency room was found to have large right cerebellar hemorrhage extending into the ventricles and was emergently rushed to the operating room for suboccipital craniectomy for evacuation of hematoma with right frontal ventriculostomy. He has been managed postoperatively in the ICU as follows: 1. Acute encephalopathy secondary to #2 -patient remains obtunded and has eyes open but no real neurologic response -Patient has poor long-term overall prognosis, family updated on consult, will continue to follow, continue current management 2. Right cerebellar hematoma status post right occipital craniectomy and command post craftsman nioplasty for depression with placement of right frontal ventriculostomy 12/23/18. -MRI continues to show residual right cerebellar hematoma and moderate bilateral hydrocephalus. -drain still in place -per neurology, Keppra not indicated, dc? -may need shunt per nsg but will not change jail prognosis per notes, defer decision to neurosurgery and family 3. 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 Acute respiratory failure secondary to the above -patient remains ventilator dependent, mild increase in O2 requirements overnight 5. Chronic hypertension: -cardene weaning in process, good control, BP goal Systolic 130mmhg or less 6. Systemic inflammatory response syndrome rule out impending sepsis secondary to the above -continue abx for now, repeat cultures, le dopplers to r/o DVT 7. Neurogenic dysphagia on NG tube feedings DC planning: Family meeting tomorrow to discuss goals of care Result Diagram: 12/31/1840912/31/18409 Results 24hrs Laboratory Tests Test 12/31/18 04:10 White Blood Count 8.9 # Red Blood Count 4.33 L Hemoglobin 10.9 L Hematocrit 34.7 L Mean Corpuscular Volume 80.1 L Mean Corpuscular Hemoglobin 25.2 L Mean Corpuscular Hemoglobin Concent 31.4 L Red Cell Distribution Width 15.9 H Platelet Count 306 # Mean Platelet Volume 11.0 H Immature Granulocytes % 0.400 Neutrophils % 81.5 H Lymphocytes % 9.1 L Monocytes % 7.7 Eosinophils % 1.1 Basophils % 0.2 Nucleated Red Blood Cells % 0.0 Immature Granulocytes # 0.040 H Neutrophils # 7.3 Lymphocytes # 0.8 Monocytes # 0.7 Eosinophils # 0.1 Basophils # 0.0 Nucleated Red Blood Cells # 0.0 Sodium Level 139 Potassium Level 3.2 L Chloride Level 105 Carbon Dioxide Level 26 Anion Gap 8 Blood Urea Nitrogen 27 H Creatinine 0.83 Est Glomerular Filtrat Rate mL/min > 60 Glucose Level 113 Calcium Level 8.9 Subjective 24 Hr Interval Summary Subjective hx not possible: pt non-verbal Exam/Review of Systems Exam Vitals Vital Signs Date Temp Pulse Resp B/P (MAP) Pulse Ox O2 O2 Flow FiO2 Time Delivery Rate 12/31/18 93 28 99 30 11:58 12/31/18 88/69 (75) 11:15 12/31/18 Mechanical 11:00 Ventilator 12/31/18 99.7 04:00 Intake and Output 12/30/18 12/30/18 12/31/18 1515:00 23:00 07:00 IntakeIntake Total 870 ml 550 ml 800 ml OutputOutput Total 1591 ml 1262 ml 1497 ml BalanceBalance -721 ml -712 ml -697 ml Constitutional: non-verbal Respiratory: clear to auscultation Cardiovascular: regular rate and rhythm Gastrointestinal: soft; No distended Musculoskeletal: nl extremities to inspection Results Results 24hrs Laboratory Tests Test 12/31/18 04:10 White Blood Count 8.9 # Red Blood Count 4.33 L Hemoglobin 10.9 L Hematocrit 34.7 L Mean Corpuscular Volume 80.1 L Mean Corpuscular Hemoglobin 25.2 L Mean Corpuscular Hemoglobin Concent 31.4 L Red Cell Distribution Width 15.9 H Platelet Count 306 # Mean Platelet Volume 11.0 H Immature Granulocytes % 0.400 Neutrophils % 81.5 H Lymphocytes % 9.1 L Monocytes % 7.7 Eosinophils % 1.1 Basophils % 0.2 Nucleated Red Blood Cells % 0.0 Immature Granulocytes # 0.040 H Neutrophils # 7.3 Lymphocytes # 0.8 Monocytes # 0.7 Eosinophils # 0.1 Basophils # 0.0 Nucleated Red Blood Cells # 0.0 Sodium Level 139 Potassium Level 3.2 L Chloride Level 105 Carbon Dioxide Level 26 Anion Gap 8 Blood Urea Nitrogen 27 H Creatinine 0.83 Est Glomerular Filtrat Rate mL/min > 60 Glucose Level 113 Calcium Level 8.9 Medications Medication Current Medications Labetalol HCl (Labetalol) 20 mg Q20M PRN IV ELEVATED BLOOD PRESSURE Last administered on 12/22/18 17:44; Admin Dose 20 MG; Start 12/22/18 at 17:30 Ondansetron HCl (Zofran Inj) 4 mg Q6H PRN IV NAUSEA AND/OR VOMITING Last admi nistered on 12/23/18 05:15; Admin Dose 4 MG; Start 12/22/18 at 23:00 Albuterol (Ventolin Hfa) 4 puff Q2H RESP THERAPY PRN INH SHORTNESS OF BREATH; Start 12/22/18 at 23:00 Ipratropium [place] (Atrovent Hfa) 4 puff Q2H RESP THERAPY PRN INH SHORTNESS OF BREATH; Start 12/22/18 at 23:00 Acetaminophen (Tylenol Supp) 650 mg Q4H PRN [place] PAIN LEVEL 1-3 OR FEVER Last administered on 12/24/18at 20:34; Admin Dose 650 MG; Start 12/22/18 at 23:00 Propofol 100 ml @ 2.387 mls/ hr PER PROTOCOL IV ; Start 12/22/18 at 23:00 Diphenhydramine HCl (Benadryl) 25 mg Q6H PRN IV ITCHING; Start 12/23/18 at 00:00 Morphine Sulfate (morphine) 2 mg Q2H PRN IV SEVERE PAIN LEVEL 7-10 Last administered on 12/23/18 13:26; Admin Dose 2 MG; Start 12/23/18 at 09:30 Lansoprazole (Prevacid) 30 mg DAILY@06 PO Last administered on 12/31/18 05:09; Admin Dose 30 MG; Start 12/26/18 at 06:00 Nicardipine HCl 50 mg/Sodium Chloride 500 ml @ 50 mls/hr TITRATE IV Last administered on 12/31/18 07:03; Admin Dose 50 MLS/HR; Start 12/25/18 at 20:00 Levetiracetam 100 ml @ 400 mls/hr Q12 IVPB Last administered on 12/31/18 10:4 8; Admin Dose 400 MLS/HR; Start 12/25/18 at 23:00 Lorazepam (Ativan) 1 mg [id number] PRN IV SEIZURES Last administered on 12/29/18 20:59; Admin Dose 1 MG; Start 12/25/18 at 23:00 Acetaminophen (Tylenol Liquid) 650 mg Q4H PRN NGT MILD PAIN(1-3)OR ELEVATED TEMP Last administered on 12/28/18 15:38; Admin Dose 650 MG; Start 12/26/18 at 05:00 Piperacillin Sod/ Tazobactam Sod 100 ml @ 200 mls/hr Q6 IVPB Last administered on 12/31/18 13:05; Admin Dose 200 MLS/HR; Start 12/26/18 at 06:00 Metoprolol Tartrate (Lopressor) 50 mg BID PO Last administered on 12/31/18 10:37; Admin Dose 50 MG; Start 12/27/18 at 21:00 Hydralazine HCl (Apresoline) 10 mg Q6H PRN IV SBP> 140 Last administered on 12/29/18 12:44; Admin Dose 10 MG; Start 12/27/18 at 15:30 Hydralazine HCl (Apresoline) 25 mg Q8H NGT Last administered on 12/31/18 10:36; Admin Dose 25 MG; Start 12/28/18 at 16:00 Eye Lubricant (Artificial Tears Oph) 2 drop QID BOTH EYES Last administered on 12/31/18 13:05; Admin Dose 2 DROP; Start 12/29/18 at 13:00 Eye Lubricant (Artificial Tears Oph) 2 drop Q6H PRN BOTH EYES DRY EYES; Start 12/29/18 at 10:00 Hydrochlorothiazide (Hydrochlorothiazide) 25 mg DAILY@0600 PO Last administered on 12/31/18 05:12; Admin Dose 25 MG; Start 12/30/18 at 06:00 Nifedipine (Procardia Xl) 30 mg BID PO Last administered on 12/31/18 10:37; Admin Dose 30 MG; Start 12/29/18 at 21:00 Polyethylene Glycol (Miralax) 17 gm DAILY NGT Last administered on 12/31/18 10:38; Admin Dose 17 GM; Start 12/29/18 at 18:00 Potassium Chloride 100 ml @ 50 mls/hr ONCE ONCE IVPB Last administered on 12/31/18at 13:45; Admin Dose 50 MLS/HR; Start 12/31/18 at 13:00; Stop 12/31/18 at 14:59 STEPHANIE SALGUERO Dec 31, 2018 14:21
[2018-12-31] MEDS: METOPROLOL 50 MG TAB NGT SCH (21:35)
[2019-01-01] VITALS (102 sets, daily range): BP systolic 97–152; BP diastolic 69–91; PULSE 65–102; RESP 12–31
[2019-01-01] MEDS: PIPER-TAZO 3.375 GM IV (PMX) 100 ML IVPB SCH ×4 (00:51→17:00)
[2019-01-01] MEDS: niCARdipine 50 MG in SOD CHLORIDE 0.9% 480 ML IV SCH ×3 (01:48→11:24)
[2019-01-01] MEDS: HYDROCHLOROTHIAZIDE 25 MG TAB NGT SCH (05:34)
[2019-01-01] MEDS: LANSOPRAZOLE 30 MG CAP NGT SCH (05:34)
[2019-01-01] MEDS: POTASSIUM CHLORIDE 100 ML IVPB SCH ×3 (07:02→11:24)
[2019-01-01] MEDS: LEVETIRACETAM 1000 MG (PMX) 100 ML IVPB SCH ×2 (09:11→20:37)
[2019-01-01] MEDS: NIFEdipine (XL) 30 MG TAB PO SCH ×2 (09:15→20:37)
[2019-01-01] MEDS: METOPROLOL 50 MG TAB NGT SCH ×2 (09:15→20:37)
[2019-01-01] MEDS: POLYETHYLENE GLYCOL 17 GM PACKET NGT SCH (09:15)
[2019-01-01] MEDS: ARTIFICIAL TEARS 15 ML OPH BOTH EYES SCH ×4 (09:15→20:35)
--- NOTE | 2019-01-01 09:15 | PN ---
Date/Time of Note Date/Time of Note DATE: 01/01/19 TIME: 09:07 Assessment/Plan Lines/Catheters IV Catheter Type (from [facility]): Mid Line Chaidez in Place (from [facility]): Yes Assessment/Plan Chief Complaint/Hosp Course POD # 10 s/p suboccipital craniotomy for evacuation of hematoma/ EVD. Patient neurologically unchanged despite EVD not draining fro > 24 hours. Spoke with family. Explained that he he may develop hydrocephalus again and deteriorate neurologically or develop a pseudomeningocele or wound leak. I explained that I recommended comfort care given his invariably probable future poor QoL. If this is not elected for then the patient should probably have a g astrostomy and PEG tube placed. A shunt can be placed later if he develops symptomatic hydrocephalus and family wishes to continue care. The family expressed agreement with the plan of care. Please call if patient has continued care and required further treatment. Will f/u for additional staple removal at end of week. Subjective 24 Hr Interval Summary pt. unchanged neurologically Exam/Review of Systems Vital Signs Vitals Vital Signs Date Temp Pulse Resp B/P (MAP) Pulse Ox O2 O2 Flow FiO2 Time Delivery Rate 01/01/19 20 30 07:45 01/01/19 77 127/79 98 07:00 (95) 01/01/19 Mechanical 06:00 Ventilator 01/01/19 97.8 04:00 Intake and Output 12/31/18 12/31/18 01/01/19 1515:00 23:00 07:00 IntakeIntake Total 1000 ml 1037.5 ml 1612.5 ml OutputOutput Total 1040 ml 1375 ml 1105 ml BalanceBalance -40 ml -337.5 ml 507.5 ml Exam Neurological: other (opens his eyes spontaneously and to name. No UE movements, LE withdrawl.) Skin: other (incision clean, dry and intact, no swelling or drainage.) Results Result Diagram: 01/01/1943901/01/19439 JOVANI MCGARRY MD Jan 01, 2019 09:15
--- NOTE | 2019-01-01 09:48 | CONS ---
Assessment/Plan Assessment/Plan Assessment/Plan (Daily) Ventilator setting; AC of 16, tidal volume 500, PEEP of 5, 30% FiO2. Patient is currently on nicardipine drip at 15 mg/h. Assessment and recommendations; 1. Patient admitted with altered mental status due to intracranial hemorrhage status post craniotomy with ventricular ostomy. 2. Profound encephalopathy. 3. History of prior CABG. 4. UTI. 5. Mild anemia. Continue current supportive care. Ventricular ostomy is currently been removed by neurosurgeon. Prognosis appears extremely poor. Palliative care should be considered. Consultation Date/Type/Reason Admit Date/Time Dec 22, 2018 at 23:55 Initial Consult Date Type of Consult Pulmonary/critical care Patient's condition is critical. Remains profoundly unresponsive. Patient however has remained hemodynamically stable. General exam; elderly male, orally intubated, unresponsive, currently in no distress. Requesting Provider: MICHAEL GOTTLIEB Date/Time of Note DATE: 01/01/19 TIME: 09:46 24 HR Interval Summary Free Text/Dictation Patient's condition is critical. Remains profoundly unresponsive. General exam; elderly male, orally intubated, unresponsive, currently in no dist ress. Exam/Review of Systems Exam Vitals Vital Signs Date Temp Pulse Resp B/P (MAP) Pulse Ox O2 O2 Flow FiO2 Time Delivery Rate 01/01/19 64 24 100 30 09:38 01/01/19 127/79 07:00 (95) 01/01/19 Mechanical 06:00 Ventilator 01/01/19 97.8 04:00 Intake and Output 12/31/18 12/31/18 01/01/19 1515:00 23:00 07:00 IntakeIntake Total 1000 ml 1037.5 ml 1612.5 ml OutputOutput Total 1040 ml 1375 ml 1105 ml BalanceBalance -40 ml -337.5 ml 507.5 ml Exam H ENT exam; supple neck, no JVD. No lymphadenopathy. Midline trachea. No thyromegaly. Right ventricular ostomy in place. Orally intubated. No neck masses. Chest exam; clear to auscultation. S1-S2 audible, no murmurs. Regular rhythm. Abdomen exam; soft, no organomegaly. Bowel sounds are audible. Extremity exam; no peripheral edema. EMAIL SPECIALIST exam; patient remains unresponsive. Results Result Diagram: 01/01/190 01/01/19439 Results 24hrs Laboratory Tests Test 01/01/19 04:40 01/01/19 05:00 White Blood Count 11.3 #H Red Blood Count 4.22 L Hemoglobin 10.8 L Hematocrit 34.1 L Mean Corpuscular Volume 80.8 L Mean Corpuscular Hemoglobin 25.6 L Mean Corpuscular Hemoglobin Concent 31.7 L Red Cell Distribution Width 15.9 H Platelet Count 318 Mean Platelet Volume 11.2 H Immature Granulocytes % 0.400 Neutrophils % 86.7 H Lymphocytes % 6.5 L Monocytes % 5.7 Eosinophils % 0.5 Basophils % 0.2 Nucleated Red Blood Cells % 0.0 Immature Granulocytes # 0.040 H Neutrophils # 9.8 H Lymphocytes # 0.7 L Monocytes # 0.7 Eosinophils # 0.1 Basophils # 0.0 Nucleated Red Blood Cells # 0.0 Sodium Level 138 Potassium Level 3.1 L Chloride Level 104 Carbon Dioxide Level 26 Anion Gap 8 Blood Urea Nitrogen 25 H Creatinine 0.74 Est Glomerular Filtrat Rate mL/min > 60 Glucose Level 148 Calcium Level 8.7 Blood Gas Specimen Source Blood arterial Arterial Blood Date Drawn 01/01/2019 5:00:35 AM Arterial Blood pH (Temp corrected) 7.511 H Arterial Blood pCO2 (Temp correct) 31.1 L Arterial Blood pO2 (Temp corrected) 92.7 Arterial Blood HCO3 24.3 Arterial Blood Base Excess 1.9 Arterial Blood Oxygen Saturation 97.5 Say Test ACCEPTAB Arterial Blood Gas Puncture Site Right Radial Arterial Blood Carboxyhemoglobin 0.5 Arterial Blood Methemoglobin 0.2 Blood Gas A-a O2 Differential 84.7 H Oxyhemoglobin Percent 96.8 Blood Gas Temperature 37.0 Blood Gas Respiration Rate 16.0 Blood Gas Actual Respiration Rate 21 Blood Gas Modality VENT - AC FiO2 30.0 Blood Gas Tidal Volume 500.0 Blood Gas Low PEEP Setting 5.0 Blood Gas Notified Whom MA Blood Gas Notified Time 01/01/2019 5:14:46 AM Medications Medication Current Medications Labetalol HCl (Labetalol) 20 mg Q20M PRN IV ELEVATED BLOOD PRESSURE Last administered on 12/22/18at 17:44; Admin Dose 20 MG; Start 12/22/18 at 17:30 Ondansetron HCl (Zofran Inj) 4 mg Q6H PRN IV NAUSEA AND/OR VOMITING Last administered on 12/23/18 05:15; Admin Dose 4 MG; Start 12/22/18 at 23:00 Albuterol (Ventolin Hfa) 4 puff Q2H RESP THERAPY PRN INH SHORTNESS OF BREATH; Start 12/22/18 at 23:00 Ipratropium [place] (Atrovent Hfa) 4 puff Q2H RESP THERAPY PRN INH SHORTNESS OF BREATH; Start 12/22/18 at 23:00 Acetaminophen (Tylenol Supp) 650 mg Q4H PRN [place] PAIN LEVEL 1-3 OR FEVER Last administered on 12/24/18 20:34; Admin Dose 650 MG; Start 12/22/18 at 23:00 Propofol 100 ml @ 2.387 mls/ hr PER PROTOCOL IV ; Start 12/22/18 at 23:00 Diphenhydramine HCl (Benadryl) 25 mg Q6H PRN IV ITCHING; Start 12/23/18 at 00:00 Morphine Sulfate (morphine) 2 mg Q2H PRN IV SEVERE PAIN LEVEL 7-10 Last admin istered on 12/23/18 13:26; Admin Dose 2 MG; Start 12/23/18 at 09:30 Nicardipine HCl 50 mg/Sodium Chloride 500 ml @ 50 mls/hr TITRATE IV Last administered on 01/01/19 07:05; Admin Dose 125 MLS/HR; Start 12/25/18 at 20:00 Levetiracetam 100 ml @ 400 mls/hr Q12 IVPB Last administered on 01/01/19 09:11; Admin Dose 400 MLS/HR; Start 12/25/18 at 23:00 Lorazepam (Ativan) 1 mg [id number] PRN IV SEIZURES Last administered on 12/29/18 20:59; Admin Dose 1 MG; Start 12/25/18 at 23:00 Acetaminophen (Tylenol Liquid) 650 mg Q4H PRN NGT MILD PAIN(1-3)OR ELEVATED TEMP Last administered on 12/28/18 15:38; Admin Dose 650 MG; Start 12/26/18 at 05:00 Piperacillin Sod/ Tazobactam Sod 100 ml @ 200 mls/hr Q6 IVPB Last administered on 01/01/19 05:35; Admin Dose 200 MLS/HR; Start 12/26/18 at 06:00 Hydralazine HCl (Apresoline) 10 mg Q6H PRN IV SBP> 140 Last administered on 12/29/18 12:44; Admin Dose 10 MG; Start 12/27/18 at 15:30 Hydralazine HCl (Apresoline) 25 mg Q8H NGT Last administered on 01/01/19 09:19; Admin Dose 25 MG; Start 12/28/18 at 16:00 Eye Lubricant (Artificial Tears Oph) 2 drop QID BOTH EYES Last administered on 01/01/19 09:15; Admin Dose 2 DROP; Start 12/29/18 at 13:00 Eye Lubricant (Artificial Tears Oph) 2 drop Q6H PRN BOTH EYES DRY EYES; Start 12/29/18 at 10:00 Nifedipine (Procardia Xl) 30 mg BID PO Last administered on 01/01/19 09:15; Admin Dose 30 MG; Start 12/29/18 at 21:00 Polyethylene Glycol (Miralax) 17 gm DAILY NGT Last administered on 01/01/19 09:15; Admin Dose 17 GM; Start 12/29/18 at 18:00 Hydrochlorothiazide (Hydrochlorothiazide) 25 mg DAILY@0600 NGT Last administered on 01/01/19 05:34; Admin Dose 25 MG; Start 01/01/19 at 06:00 Lansoprazole (Prevacid) 30 mg DAILY@06 NGT Last administered on 01/01/19 05:34; Admin Dose 30 MG; Start 01/01/19 at 06:00 Metoprolol Tartrate (Lopressor) 50 mg BID NGT Last administered on 01/01/19 09:15; Admin Dose 50 MG; Start 12/31/18 at 21:00 Potassium Chloride 100 ml @ 50 mls/hr Q2H IVPB Last administered on 01/01/19 09:20; Admin Dose 50 MLS/HR; Start 01/01/19 at 07:00; Stop 01/01/19 at 12:59 GOYO GRAVES Jan 01, 2019 09:48
--- NOTE | 2019-01-01 14:17 | CONS ---
Assessment/Plan Assessment/Plan Assessment/Plan (Daily) Family conference completed this morning at 1400 hrs. Participants including patient's daughter friend and aunt. First of all family members have decided to proceed with terminal extubation tomorrow morning at 0900. Patient's daughter arrived to [facility] today from [place]. She would like to spend some time with her father prior to his extubation and demise. She is currently history which shared with her in detail as well as with neurosurgery and second consultation neurosurgeon and they have a clear understanding of his underlying medical condition and her hopes are that he does not have any prolonged course of her quality of life therefore no PEG no trach no extended stay in any type of subacute unit. The only fears that he was suffered at the end of life who is supported them in made absolutely sure that they know this would not happen we reduce comfort care medications as necessary. Medication was excellent between family members and myself Goals of care are to discontinue all unnecessary medications that would not contribute to his quality of life and extubate patient tomorrow morning we discussed pain and symptom management psychologic social issues spiritual existential issues there were no ethical issues legal or surrogate issues that need to be addressed to family members are in agreement with goals of care. Terminal extubation will be done tomorrow morning family members have not decided whether not they want to be present or not. Consultation Date/Type/Reason Admit Date/Time Dec 22, 2018 at 23:55 Date/Time of Note DATE: 01/01/19 TIME: 14:11 Past Medical History Home Meds Reported Medications Metoprolol Tartrate* (Lopressor*) 50 Mg Tab, 50 MG PO BID, #60 TAB 12/23/18 Aspirin* (Aspirin* Chew) 81 Mg Tab.chew, 81 MG PO DAILY, TAB.CHEW 12/23/18 Atorvastatin* (Atorvastatin*) 80 Mg Tablet, 80 MG PO QHS, #30 TAB 12/23/18 Donepezil* (Donepezil*) 5 Mg Tablet, 5 MG PO DAILY, #30 TAB 12/23/18 Medications Current Medications Labetalol HCl (Labetalol) 20 mg Q20M PRN IV ELEVATED BLOOD PRESSURE Last administered on 12/22/18at 17:44; Admin Dose 20 MG; Start 12/22/18 at 17:30 Ondansetron HCl (Zofran Inj) 4 mg Q6H PRN IV NAUSEA AND/OR VOMITING Last admini stered on 12/23/18 05:15; Admin Dose 4 MG; Start 12/22/18 at 23:00 Albuterol (Ventolin Hfa) 4 puff Q2H RESP THERAPY PRN INH SHORTNESS OF BREATH; Start 12/22/18 at 23:00 Ipratropium Sprague (Atrovent Hfa) 4 puff Q2H RESP THERAPY PRN INH SHORTNESS OF BREATH; Start 12/22/18 at 23:00 Acetaminophen (Tylenol Supp) 650 mg Q4H PRN OR PAIN LEVEL 1-3 OR FEVER Last administered on 12/24/18 20:34; Admin Dose 650 MG; Start 12/22/18 at 23:00 Propofol 100 ml @ 2.387 mls/ hr PER PROTOCOL IV ; Start 12/22/18 at 23:00 Diphenhydramine HCl (Benadryl) 25 mg Q6H PRN IV ITCHING; Start 12/23/18 at 00:00 Morphine Sulfate (morphine) 2 mg Q2H PRN IV SEVERE PAIN LEVEL 7-10 Last administered on 12/23/18 13:26; Admin Dose 2 MG; Start 12/23/18 at 09:30 Nicardipine HCl 50 mg/Sodium Chloride 500 ml @ 50 mls/hr TITRATE IV Last administered on 01/01/19 11:24; Admin Dose 50 MLS/HR; Start 12/25/18 at 20:00 Levetiracetam 100 ml @ 400 mls/hr Q12 IVPB Last administered on 01/01/19 09:11; Admin Dose 400 MLS/HR; Start 12/25/18 at 23:00 Lorazepam (Ativan) 1 mg [id number] PRN IV SEIZURES Last administered on 12/29/18 20:59; Admin Dose 1 MG; Start 12/25/18 at 23:00 Acetaminophen (Tylenol Liquid) 650 mg Q4H PRN NGT MILD PAIN(1-3)OR ELEVATED TEMP Last administered on 12/28/18 15:38; Admin Dose 650 MG; Start 12/26/18 at 05:00 Piperacillin Sod/ Tazobactam Sod 100 ml @ 200 mls/hr Q6 IVPB Last administered on 01/01/19 11:31; Admin Dose 200 MLS/HR; Start 12/26/18 at 06:00 Hydralazine HCl (Apresoline) 10 mg Q6H PRN IV SBP> 140 Last administered on 12/29/18 12:44; Admin Dose 10 MG; Start 12/27/18 at 15:30 Hydralazine HCl (Apresoline) 25 mg Q8H NGT Last administered on 01/01/19 09:19; Admin Dose 25 MG; Start 12/28/18 at 16:00 Eye Lubricant (Artificial Tears Oph) 2 drop QID BOTH EYES Last administered on 01/01/19 12:00; Admin Dose 2 DROP; Start 12/29/18 at 13:00 Eye Lubricant (Artificial Tears Oph) 2 drop Q6H PRN BOTH EYES DRY EYES; Start 12/29/18 at 10:00 Nifedipine (Procardia Xl) 30 mg BID PO Last administered on 01/01/19 09:15; Admin Dose 30 MG; Start 12/29/18 at 21:00 Polyethylene Glycol (Miralax) 17 gm DAILY NGT Last administered on 01/01/19 09:15; Admin Dose 17 GM; Start 12/29/18 at 18:00 Hydrochlorothiazide (Hydrochlorothiazide) 25 mg DAILY@0600 NGT Last administered on 01/01/19 05:34; Admin Dose 25 MG; Start 01/01/19 at 06:00 Lansoprazole (Prevacid) 30 mg DAILY@06 NGT Last administered on 01/01/19 05:34; Admin Dose 30 MG; Start 01/01/19 at 06:00 Metoprolol Tartrate (Lopressor) 50 mg BID NGT Last administered on 01/01/19 09:15; Admin Dose 50 MG; Start 12/31/18 at 21:00 Allergies: Coded Allergies: Unknown: Unable to obtain (Unverified , 12/22/18) Social History Smoking Status: Current every day smoker Exam/Review of Systems Exam Vitals Vital Signs Date Temp Pulse Resp B/P (MAP) Pulse Ox O2 O2 Flow FiO2 Time Delivery Rate 01/01/19 73 21 100 30 12:50 01/01/19 97.5 121/80 Mechanical 12:00 (94) Ventilator Intake and Output 12/31/18 12/31/18 01/01/19 1515:00 23:00 07:00 IntakeIntake Total 1000 ml 1037.5 ml 1787.5 ml OutputOutput Total 1040 ml 1375 ml 1235 ml BalanceBalance -40 ml -337.5 ml 552.5 ml Results Result Diagram: 01/01/19 0440 01/01/19 0440 Results 24hrs Laboratory Tests Test 01/01/19 04:40 01/01/19 05:00 White Blood Count 11.3 #H Red Blood Count 4.22 L Hemoglobin 10.8 L Hematocrit 34.1 L Mean Corpuscular Volume 80.8 L Mean Corpuscular Hemoglobin 25.6 L Mean Corpuscular Hemoglobin Concent 31.7 L Red Cell Distribution Width 15.9 H Platelet Count 318 Mean Platelet Volume 11.2 H Immature Granulocytes % 0.400 Neutrophils % 86.7 H Lymphocytes % 6.5 L Monocytes % 5.7 Eosinophils % 0.5 Basophils % 0.2 Nucleated Red Blood Cells % 0.0 Immature Granulocytes # 0.040 H Neutrophils # 9.8 H Lymphocytes # 0.7 L Monocytes # 0.7 Eosinophils # 0.1 Basophils # 0.0 Nucleated Red Blood Cells # 0.0 Sodium Level 138 Potassium Level 3.1 L Chloride Level 104 Carbon Dioxide Level 26 Anion Gap 8 Blood Urea Nitrogen 25 H Creatinine 0.74 Est Glomerular Filtrat Rate mL/min > 60 Glucose Level 148 Calcium Level 8.7 Blood Gas Specimen Source Blood arterial Arterial Blood Date Drawn 01/01/2019 5:00:35 AM Arterial Blood pH (Temp corrected) 7.511 H Arterial Blood pCO2 (Temp correct) 31.1 L Arterial Blood pO2 (Temp corrected) 92.7 Arterial Blood HCO3 24.3 Arterial Blood Base Excess 1.9 Arterial Blood Oxygen Saturation 97.5 Say Test ACCEPTAB Arterial Blood Gas Puncture Site Right Radial Arterial Blood Carboxyhemoglobin 0.5 Arterial Blood Methemoglobin 0.2 Blood Gas A-a O2 Differential 84.7 H Oxyhemoglobin Percent 96.8 Blood Gas Temperature 37.0 Blood Gas Respiration Rate 16.0 Blood Gas Actual Respiration Rate 21 Blood Gas Modality VENT - AC FiO2 30.0 Blood Gas Tidal Volume 500.0 Blood Gas Low PEEP Setting 5.0 Blood Gas Notified Whom MA Blood Gas Notified Time 01/01/2019 5:14:46 AM Medications Medication Current Medications Labetalol HCl (Labetalol) 20 mg Q20M PRN IV ELEVATED BLOOD PRESSURE Last administered on 12/22/18 17:44; Admin Dose 20 MG; Start 12/22/18 at 17:30 Ondansetron HCl (Zofran Inj) 4 mg Q6H PRN IV NAUSEA AND/OR VOMITING Last administered on 12/23/18 05:15; Admin Dose 4 MG; Start 12/22/18 at 23:00 Albuterol (Ventolin Hfa) 4 puff Q2H RESP THERAPY PRN INH SHORTNESS OF BREATH; Start 12/22/18 at 23:00 Ipratropium Sprague (Atrovent Hfa) 4 puff Q2H RESP THERAPY PRN INH SHORTNESS OF BREATH; Start 12/22/18 at 23:00 Acetaminophen (Tylenol Supp) 650 mg Q4H PRN OR PAIN LEVEL 1-3 OR FEVER Last administered on 12/24/18 20:34; Admin Dose 650 MG; Start 12/22/18 at 23:00 Propofol 100 ml @ 2.387 mls/ hr PER PROTOCOL IV ; Start 12/22/18 at 23:00 Diphenhydramine HCl (Benadryl) 25 mg Q6H PRN IV ITCHING; Start 12/23/18 at 00:00 Morphine Sulfate (morphine) 2 mg Q2H PRN IV SEVERE PAIN LEVEL 7-10 Last administered on 12/23/18 13:26; Admin Dose 2 MG; Start 12/23/18 at 09:30 Nicardipine HCl 50 mg/Sodium Chloride 500 ml @ 50 mls/hr TITRATE IV Last administered on 01/01/19 11:24; Admin Dose 50 MLS/HR; Start 12/25/18 at 20:00 Levetiracetam 100 ml @ 400 mls/hr Q12 IVPB Last administered on 01/01/19 09:11; Admin Dose 400 MLS/HR; Start 12/25/18 at 23:00 Lorazepam (Ativan) 1 mg [id number] PRN IV SEIZURES Last administered on 12/29/18 20:59; Admin Dose 1 MG; Start 12/25/18 at 23:00 Acetaminophen (Tylenol Liquid) 650 mg Q4H PRN NGT MILD PAIN(1-3)OR ELEVATED TE MP Last administered on 12/28/18 15:38; Admin Dose 650 MG; Start 12/26/18 at 05:00 Piperacillin Sod/ Tazobactam Sod 100 ml @ 200 mls/hr Q6 IVPB Last administered on 01/01/19 11:31; Admin Dose 200 MLS/HR; Start 12/26/18 at 06:00 Hydralazine HCl (Apresoline) 10 mg Q6H PRN IV SBP> 140 Last administered on 12/29/18 12:44; Admin Dose 10 MG; Start 12/27/18 at 15:30 Hydralazine HCl (Apresoline) 25 mg Q8H NGT Last administered on 01/01/19 09:19; Admin Dose 25 MG; Start 12/28/18 at 16:00 Eye Lubricant (Artificial Tears Oph) 2 drop QID BOTH EYES Last administered on 01/01/19 12:00; Admin Dose 2 DROP; Start 12/29/18 at 13:00 Eye Lubricant (Artificial Tears Oph) 2 drop Q6H PRN BOTH EYES DRY EYES; Start 12/29/18 at 10:00 Nifedipine (Procardia Xl) 30 mg BID PO Last administered on 01/01/19 09:15; Admin Dose 30 MG; Start 12/29/18 at 21:00 Polyethylene Glycol (Miralax) 17 gm DAILY NGT Last administered on 01/01/19 09:15; Admin Dose 17 GM; Start 12/29/18 at 18:00 Hydrochlorothiazide (Hydrochlorothiazide) 25 mg DAILY@0600 NGT Last administered on 01/01/19 05:34; Admin Dose 25 MG; Start 01/01/19 at 06:00 Lansoprazole (Prevacid) 30 mg DAILY@06 NGT Last administered on 01/01/19 05:34 ; Admin Dose 30 MG; Start 01/01/19 at 06:00 Metoprolol Tartrate (Lopressor) 50 mg BID NGT Last administered on 01/01/19 09:15; Admin Dose 50 MG; Start 12/31/18 at 21:00 ANGELES MILLER Jan 01, 2019 14:17
--- NOTE | 2019-01-01 14:27 | PN ---
Date/Time of Note Date/Time of Note DATE: 01/01/19 TIME: 14:26 Assessment/Plan VTE Prophylaxis Risk score (from [facility])>0 risk: 8 SCD applied (from [facility]): Yes Pharmacological prophylaxis: NA/contraindicated Pharm contraindication: bleeding Assessment/Plan Hospital Course 63-year-old male with a past medical history of high blood pressure and chronic tobacco use only who presented to the emergency room with sudden onset of severe headache and collapse in the emergency room was found to have large right cerebellar hemorrhage extending into the ventricles and was emergently rushed to the operating room for suboccipital craniectomy for evacuation of hematoma with right frontal ventriculostomy. He has been managed p ostoperatively in the ICU as follows: 1. Acute encephalopathy secondary to #2 -patient remains obtunded and has eyes open but no real neurologic response -Patient has poor long-term overall prognosis, family updated on consult, will continue to follow, continue current management 2. 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 -MRI continues to show residual right cerebellar hematoma and moderate bilateral hydrocephalus. -drain still in place -per neurology, Keppra not indicated, dc? -may need shunt per nsg but will not change terminal supervisor prognosis per notes, defer decision to neurosurgery and family 3. 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 Acute respiratory failure secondary to the above -patient remains ventilator dependent, mild increase in O2 requirements overnight 5. Chronic hypertension: -cardene weaning in process, good control, BP goal Systolic 130mmhg or less 6. Systemic inflammatory response syndrome rule out impending sepsis secondary to the above -continue abx for now, repeat cultures, le dopplers to r/o DVT 7. Neurogenic dysphagia on NG tube feedings DC planning: Family aware of poor prognosis, awaiting second neurosurgical opinion Result Diagram: 01/01/190 01/01/190 Results 24hrs Laboratory Tests Test 01/01/19 04:40 01/01/19 05:00 White Blood Count 11.3 #H Red Blood Count 4.22 L Hemoglobin 10.8 L Hematocrit 34.1 L Mean Corpuscular Volume 80.8 L Mean Corpuscular Hemoglobin 25.6 L Mean Corpuscular Hemoglobin Concent 31.7 L Red Cell Distribution Width 15.9 H Platelet Count 318 Mean Platelet Volume 11.2 H Immature Granulocytes % 0.400 Neutrophils % 86.7 H Lymphocytes % 6.5 L Monocytes % 5.7 Eosinophils % 0.5 Basophils % 0.2 Nucleated Red Blood Cells % 0.0 Immature Granulocytes # 0.040 H Neutrophils # 9.8 H Lymphocytes # 0.7 L Monocytes # 0.7 Eosinophils # 0.1 Basophils # 0.0 Nucleated Red Blood Cells # 0.0 Sodium Level 138 Potassium Level 3.1 L Chloride Level 104 Carbon Dioxide Level 26 Anion Gap 8 Blood Urea Nitrogen 25 H Creatinine 0.74 Est Glomerular Filtrat Rate mL/min > 60 Glucose Level 148 Calcium Level 8.7 Blood Gas Specimen Source Blood arterial Arterial Blood Date Drawn 01/01/2019 5:00:35 AM Arterial Blood pH (Temp corrected) 7.511 H Arterial Blood pCO2 (Temp correct) 31.1 L Arterial Blood pO2 (Temp corrected) 92.7 Arterial Blood HCO3 24.3 Arterial Blood Base Excess 1.9 Arterial Blood Oxygen Saturation 97.5 Say Test ACCEPTAB Arterial Blood Gas Puncture Site Right Radial Arterial Blood Carboxyhemoglobin 0.5 Arterial Blood Methemoglobin 0.2 Blood Gas A-a O2 Differential 84.7 H Oxyhemoglobin Percent 96.8 Blood Gas Temperature 37.0 Blood Gas Respiration Rate 16.0 Blood Gas Actual Respiration Rate 21 Blood Gas Modality VENT - AC FiO2 30.0 Blood Gas Tidal Volume 500.0 Blood Gas Low PEEP Setting 5.0 Blood Gas Notified Whom MA Blood Gas Notified Time 01/01/2019 5:14:46 AM Subjective 24 Hr Interval Summary Subjective hx not possible: pt non-verbal Exam/Review of Systems Exam Vitals Vital Signs Date Temp Pulse Resp B/P (MAP) Pulse Ox O2 O2 Flow FiO2 Time Delivery Rate 01/01/19 78 25 100 30 14:15 01/01/19 97.5 121/80 Mechanical 12:00 (94) Ventilator Intake and Output 12/31/18 12/31/18 01/01/19 1515:00 23:00 07:00 IntakeIntake Total 1000 ml 1037.5 ml 1787.5 ml OutputOutput Total 1040 ml 1375 ml 1235 ml BalanceBalance -40 ml -337.5 ml 552.5 ml Constitutional: non-verbal Respiratory: clear to auscultation Cardiovascular: regular rate and rhythm Gastrointestinal: soft; No distended Musculoskeletal: nl extremities to inspection Results Results 24hrs Laboratory Tests Test 01/01/19 04:40 01/01/19 05:00 White Blood Count 11.3 #H Red Blood Count 4.22 L Hemoglobin 10.8 L Hematocrit 34.1 L Mean Corpuscular Volume 80.8 L Mean Corpuscular Hemoglobin 25.6 L Mean Corpuscular Hemoglobin Concent 31.7 L Red Cell Distribution Width 15.9 H Platelet Count 318 Mean Platelet Volume 11.2 H Immature Granulocytes % 0.400 Neutrophils % 86.7 H Lymphocytes % 6.5 L Monocytes % 5.7 Eosinophils % 0.5 Basophils % 0.2 Nucleated Red Blood Cells % 0.0 Immature Granulocytes # 0.040 H Neutrophils # 9.8 H Lymphocytes # 0.7 L Monocytes # 0.7 Eosinophils # 0.1 Basophils # 0.0 Nucleated Red Blood Cells # 0.0 Sodium Level 138 Potassium Level 3.1 L Chloride Level 104 Carbon Dioxide Level 26 Anion Gap 8 Blood Urea Nitrogen 25 H Creatinine 0.74 Est Glomerular Filtrat Rate mL/min > 60 Glucose Level 148 Calcium Level 8.7 Blood Gas Specimen Source Blood arterial Arterial Blood Date Drawn 01/01/2019 5:00:35 AM Arterial Blood pH (Temp corrected) 7.511 H Arterial Blood pCO2 (Temp correct) 31.1 L Arterial Blood pO2 (Temp corrected) 92.7 Arterial Blood HCO3 24.3 Arterial Blood Base Excess 1.9 Arterial Blood Oxygen Saturation 97.5 Say Test ACCEPTAB Arterial Blood Gas Puncture Site Right Radial Arterial Blood Carboxyhemoglobin 0.5 Arterial Blood Methemoglobin 0.2 Blood Gas A-a O2 Differential 84.7 H Oxyhemoglobin Percent 96.8 Blood Gas Temperature 37.0 Blood Gas Respiration Rate 16.0 Blood Gas Actual Respiration Rate 21 Blood Gas Modality VENT - AC FiO2 30.0 Blood Gas Tidal Volume 500.0 Blood Gas Low PEEP Setting 5.0 Blood Gas Notified Whom MA Blood Gas Notified Time 01/01/2019 5:14:46 AM Medications Medication Current Medications Labetalol HCl (Labetalol) 20 mg Q20M PRN IV ELEVATED BLOOD PRESSURE Last administered on 12/22/18at 17:44; Admin Dose 20 MG; Start 12/22/18 at 17:30 Ondansetron HCl (Zofran Inj) 4 mg Q6H PRN IV NAUSEA AND/OR VOMITING Last administered on 12/23/18 05:15; Admin Dose 4 MG; Start 12/22/18 at 23:00 Albuterol (Ventolin Hfa) 4 puff Q2H RESP THERAPY PRN INH SHORTNESS OF BREATH; Start 12/22/18 at 23:00 Ipratropium [place] (Atrovent Hfa) 4 puff Q2H RESP THERAPY PRN INH SHORTNESS OF BREATH; Start 12/22/18 at 23:00 Acetaminophen (Tylenol Supp) 650 mg Q4H PRN AR PAIN LEVEL 1-3 OR FEVER Last administered on 12/24/18 20:34; Admin Dose 650 MG; Start 12/22/18 at 23:00 Propofol 100 ml @ 2.387 mls/ hr PER PROTOCOL IV ; Start 12/22/18 at 23:00 Diphenhydramine HCl (Benadryl) 25 mg Q6H PRN IV ITCHING; Start 12/23/18 at 00:00 Morphine Sulfate (morphine) 2 mg Q2H PRN IV SEVERE PAIN LEVEL 7-10 Last administered on 12/23/18 13:26; Admin Dose 2 MG; Start 12/23/18 at 09:30 Nicardipine HCl 50 mg/Sodium Chloride 500 ml @ 50 mls/hr TITRATE IV Last administered on 01/01/19 11:24; Admin Dose 50 MLS/HR; Start 12/25/18 at 20:00 Levetiracetam 100 ml @ 400 mls/hr Q12 IVPB Last administered on 01/01/19 09:11; Admin Dose 400 MLS/HR; Start 12/25/18 at 23:00 Lorazepam (Ativan) 1 mg [id number] PRN IV SEIZURES Last administered on 12/29/18 20:59; Admin Dose 1 MG; Start 12/25/18 at 23:00 Acetaminophen (Tylenol Liquid) 650 mg Q4H PRN NGT MILD PAIN(1-3)OR ELEVATED TEMP Last administered on 12/28/18 15:38; Admin Dose 650 MG; Start 12/26/18 at 05:00 Piperacillin Sod/ Tazobactam Sod 100 ml @ 200 mls/hr Q6 IVPB Last administered on 01/01/19 11:31; Admin Dose 200 MLS/HR; Start 12/26/18 at 06:00 Hydralazine HCl (Apresoline) 10 mg Q6H PRN IV SBP> 140 Last administered on 12/29/18 12:44; Admin Dose 10 MG; Start 12/27/18 at 15:30 Hydralazine HCl (Apresoline) 25 mg Q8H NGT Last administered on 01/01/19 09:19; Admin Dose 25 MG; Start 12/28/18 at 16:00 Eye Lubricant (Artificial Tears Oph) 2 drop QID BOTH EYES Last administered on 01/01/19 12:00; Admin Dose 2 DROP; Start 12/29/18 at 13:00 Eye Lubricant (Artificial Tears Oph) 2 drop Q6H PRN BOTH EYES DRY EYES; Start 12/29/18 at 10:00 Nifedipine (Procardia Xl) 30 mg BID PO Last administered on 01/01/19 09:15; Admin Dose 30 MG; Start 12/29/18 at 21:00 Polyethylene Glycol (Miralax) 17 gm DAILY NGT Last administered on 01/01/19 09:15; Admin Dose 17 GM; Start 12/29/18 at 18:00 Hydrochlorothiazide (Hydrochlorothiazide) 25 mg DAILY@0600 NGT Last administered on 01/01/19 05:34; Admin Dose 25 MG; Start 01/01/19 at 06:00 Lansoprazole (Prevacid) 30 mg DAILY@06 NGT Last administered on 01/01/19 05:34; Admin Dose 30 MG; Start 01/01/19 at 06:00 Metoprolol Tartrate (Lopressor) 50 mg BID NGT Last administered on 01/01/19 09:15; Admin Dose 50 MG; Start 12/31/18 at 21:00 STEPHANIE SALGUERO Jan 01, 2019 14:27
[2019-01-01] MEDS: hydrALAzine 20 MG INJ IV PRN (18:19)
[2019-01-02] VITALS (59 sets, daily range): BP systolic 104–155; BP diastolic 72–106; PULSE 0–93; RESP 0–29
[2019-01-02] MEDS: PIPER-TAZO 3.375 GM IV (PMX) 100 ML IVPB SCH ×2 (00:17→05:06)
[2019-01-02] MEDS: niCARdipine 50 MG in SOD CHLORIDE 0.9% 480 ML IV SCH (00:33)
[2019-01-02] MEDS: hydrALAzine 20 MG INJ IV PRN (04:59)
[2019-01-02] MEDS: LANSOPRAZOLE 30 MG CAP NGT SCH (05:05)
[2019-01-02] MEDS: HYDROCHLOROTHIAZIDE 25 MG TAB NGT SCH (05:06)
[2019-01-02] MEDS: METOPROLOL 50 MG TAB NGT SCH (08:23)
[2019-01-02] MEDS: NIFEdipine (XL) 30 MG TAB PO SCH (08:23)
[2019-01-02] MEDS: LEVETIRACETAM 1000 MG (PMX) 100 ML IVPB SCH (08:23)
[2019-01-02] MEDS: POLYETHYLENE GLYCOL 17 GM PACKET NGT SCH (08:24)
[2019-01-02] MEDS: ARTIFICIAL TEARS 15 ML OPH BOTH EYES SCH (08:24)
--- NOTE | 2019-01-02 08:42 | CONS ---
Assessment/Plan Assessment/Plan Assessment/Plan (Daily) Ventilator setting; AC of 16, tidal volume 500, PEEP of 5, 30% FiO2. Assessment and recommendations; 1. Patient admitted with intracranial bleed status post craniotomy as well as ventriculostomy with interval tracheostomy removal. 2. Severe encephalopathy without any interval improvement since admission. 3. History of hypertension. Continue current supportive care. Patient's family apparently has opted for terminal extubation sometime today. Prognosis appears extremely poor. Consultation Date/Type/Reason Admit Date/Time Dec 22, 2018 at 23:55 Initial Consult Date Type of Consult Pulmonary/critical care Patient's condition is critical. Remains profoundly unresponsive. Patient however has remained hemodynamically stable. General exam; elderly male, orally intubated, unresponsive, currently in no distress. Requesting Provider: MICHAEL GOTTLIEB Date/Time of Note DATE: 01/02/19 TIME: 08:40 24 HR Interval Summary Free Text/Dictation Patient's condition is critical. Remains profoundly unresponsive. Patient however has remained hemodynamically stable. General exam; elderly male, orally intubated, unresponsive, currently in no distress. Exam/Review of Systems Exam Vitals Vital Signs Date Temp Pulse Resp B/P (MAP) Pulse Ox O2 O2 Flow FiO2 Time Delivery Rate 01/02/19 92 24 98 30 07:30 01/02/19 151/88 Mechanical 07:00 (109) Ventilator 01/02/19 99.1 04:00 Intake and Output 01/01/19 01/01/19 01/02/19 1515:00 23:00 07:00 IntakeIntake Total 1475 ml 700 ml 1060 ml OutputOutput Total 705 ml 790 ml 650 ml BalanceBalance 770 ml -90 ml 410 ml Exam H ENT exam; supple neck, no JVD. No lymphadenopathy. Midline trachea. No thyromegaly. Patient has fair dentition. No neck masses. Pupils are small bilaterally. Orally intubated. Chest exam; diminished but clear breath sounds. S1-S2 audible, no murmurs. Regular rhythm. Abdomen exam; soft, no organomegaly. Bowel sounds audible. Abdomen is nondistended. Extremity exam; no peripheral edema. 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 Results Result Diagram: 01/02/19 0450 01/02/19 0450 Results 24hrs Laboratory Tests Test 01/02/19 04:50 White Blood Count 10.1 Red Blood Count 3.92 L Hemoglobin 10.0 L Hematocrit 31.6 L Mean Corpuscular Volume 80.6 L Mean Corpuscular Hemoglobin 25.5 L Mean Corpuscular Hemoglobin Concent 31.6 L Red Cell Distribution Width 15.8 H Platelet Count 309 Mean Platelet Volume 11.0 H Immature Granulocytes % 0.500 H Neutrophils % 84.1 H Lymphocytes % 9.1 L Monocytes % 5.8 Eosinophils % 0.3 Basophils % 0.2 Nucleated Red Blood Cells % 0.0 Immature Granulocytes # 0.050 H Neutrophils # 8.5 H Lymphocytes # 0.9 Monocytes # 0.6 Eosinophils # 0.0 Basophils # 0.0 Nucleated Red Blood Cells # 0.0 Sodium Level 139 Potassium Level 3.6 Chloride Level 107 Carbon Dioxide Level 26 Anion Gap 6 Blood Urea Nitrogen 26 H Creatinine 0.76 Est Glomerular Filtrat Rate mL/min > 60 Glucose Level 136 Calcium Level 8.8 Medications Medication Current Medications Labetalol HCl (Labetalol) 20 mg Q20M PRN IV ELEVATED BLOOD PRESSURE Last administered on 12/22/18at 17:44; Admin Dose 20 MG; Start 12/22/18 at 17:30 Ondansetron HCl (Zofran Inj) 4 mg Q6H PRN IV NAUSEA AND/OR VOMITING Last admini stered on 12/23/18at 05:15; Admin Dose 4 MG; Start 12/22/18 at 23:00 Albuterol (Ventolin Hfa) 4 puff Q2H RESP THERAPY PRN INH SHORTNESS OF BREATH; Start 12/22/18 at 23:00 Ipratropium [place] (Atrovent Hfa) 4 puff Q2H RESP THERAPY PRN INH SHORTNESS OF BREATH; Start 12/22/18 at 23:00 Acetaminophen (Tylenol Supp) 650 mg Q4H PRN [place] PAIN LEVEL 1-3 OR FEVER Last administered on 12/24/18at 20:34; Admin Dose 650 MG; Start 12/22/18 at 23:00 Propofol 100 ml @ 2.387 mls/ hr PER PROTOCOL IV ; Start 12/22/18 at 23:00 Diphenhydramine HCl (Benadryl) 25 mg Q6H PRN IV ITCHING; Start 12/23/18 at 00:00 Morphine Sulfate (morphine) 2 mg Q2H PRN IV SEVERE PAIN LEVEL 7-10 Last administered on 12/23/18 13:26; Admin Dose 2 MG; Start 12/23/18 at 09:30 Nicardipine HCl 50 mg/Sodium Chloride 500 ml @ 50 mls/hr TITRATE IV Last administered on 01/01/19 11:24; Admin Dose 50 MLS/HR; Start 12/25/18 at 20:00 Levetiracetam 100 ml @ 400 mls/hr Q12 IVPB Last administered on 01/02/19 08:23; Admin Dose 400 MLS/HR; Start 12/25/18 at 23:00 Lorazepam (Ativan) 1 mg [id number] PRN IV SEIZURES Last administered on 12/29/18 20:59; Admin Dose 1 MG; Start 12/25/18 at 23:00 Acetaminophen (Tylenol Liquid) 650 mg Q4H PRN NGT MILD PAIN(1-3)OR ELEVATED TEMP Last administered on 12/28/18 15:38; Admin Dose 650 MG; Start 12/26/18 at 05:00 Piperacillin Sod/ Tazobactam Sod 100 ml @ 200 mls/hr Q6 IVPB Last administered on 01/02/19 05:06; Admin Dose 200 MLS/HR; Start 12/26/18 at 06:00 Hydralazine HCl (Apresoline) 10 mg Q6H PRN IV SBP> 140 Last administered on 01/02/19 04:59; Admin Dose 10 MG; Start 12/27/18 at 15:30 Hydralazine HCl (Apresoline) 25 mg Q8H NGT Last administered on 01/02/19 07:22; Admin Dose 25 MG; Start 12/28/18 at 16:00 Eye Lubricant (Artificial Tears Oph) 2 drop QID BOTH EYES Last administered on 01/02/19 08:24; Admin Dose 2 DROP; Start 12/29/18 at 13:00 Eye Lubricant (Artificial Tears Oph) 2 drop Q6H PRN BOTH EYES DRY EYES; Start 12/29/18 at 10:00 Nifedipine (Procardia Xl) 30 mg BID PO Last administered on 01/02/19 08:23; Admin Dose 30 MG; Start 12/29/18 at 21:00 Polyethylene Glycol (Miralax) 17 gm DAILY NGT Last administered on 01/02/19 08:24; Admin Dose 17 GM; Start 12/29/18 at 18:00 Hydrochlorothiazide (Hydrochlorothiazide) 25 mg DAILY@0600 NGT Last administered on 01/02/19 05:06; Admin Dose 25 MG; Start 01/01/19 at 06:00 Lansoprazole (Prevacid) 30 mg DAILY@06 NGT Last administered on 01/02/19 05:05; Admin Dose 30 MG; Start 01/01/19 at 06:00 Metoprolol Tartrate (Lopressor) 50 mg BID NGT Last administered on 01/02/19 08:23; Admin Dose 50 MG; Start 12/31/18 at 21:00 GOYO GRAVES Jan 02, 2019 08:42
--- NOTE | 2019-01-02 09:46 | PN ---
Date/Time of Note Date/Time of Note DATE: 01/02/19 TIME: 09:46 Objective Vitals Vital Signs Date Temp Pulse Resp B/P (MAP) Pulse Ox O2 O2 Flow FiO2 Time Delivery Rate 01/02/19 79 23 104/73 100 08:45 (83) 01/02/19 30 08:00 01/02/19 99.2 Mechanical 08:00 Ventilator Intake and Output 01/01/19 01/01/19 01/02/19 1515:00 23:00 07:00 IntakeIntake Total 1475 ml 700 ml 1110 ml OutputOutput Total 705 ml 790 ml 900 ml BalanceBalance 770 ml -90 ml 210 ml Results Result Diagram: 01/02/19 04501/02/19 0450 Medications Medications Current Medications Labetalol HCl (Labetalol) 20 mg Q20M PRN IV ELEVATED BLOOD PRESSURE Last administered on 12/22/18at 17:44; Admin Dose 20 MG; Start 12/22/18 at 17:30 Ondansetron HCl (Zofran Inj) 4 mg Q6H PRN IV NAUSEA AND/OR VOMITING Last administered on 12/23/18at 05:15; Admin Dose 4 MG; Start 12/22/18 at 23:00 Albuterol (Ventolin Hfa) 4 puff Q2H RESP THERAPY PRN INH SHORTNESS OF BREATH; Start 12/22/18 at 23:00 Ipratropium [place] (Atrovent Hfa) 4 puff Q2H RESP THERAPY PRN INH SHORTNESS OF BREATH; Start 12/22/18 at 23:00 Acetaminophen (Tylenol Supp) 650 mg Q4H PRN [place] PAIN LEVEL 1-3 OR FEVER Last administered on 12/24/18at 20:34; Admin Dose 650 MG; Start 12/22/18 at 23:00 Propofol 100 ml @ 2.387 mls/ hr PER PROTOCOL IV ; Start 12/22/18 at 23:00 Diphenhydramine HCl (Benadryl) 25 mg Q6H PRN IV ITCHING; Start 12/23/18 at 00:00 Morphine Sulfate (morphine) 2 mg Q2H PRN IV SEVERE PAIN LEVEL 7-10 Last administered on 12/23/18at 13:26; Admin Dose 2 MG; Start 12/23/18 at 09:30 Nicardipine HCl 50 mg/Sodium Chloride 500 ml @ 50 mls/hr TITRATE IV Last admi nistered on 01/01/19 11:24; Admin Dose 50 MLS/HR; Start 12/25/18 at 20:00 Levetiracetam 100 ml @ 400 mls/hr Q12 IVPB Last administered on 01/02/19 08:23; Admin Dose 400 MLS/HR; Start 12/25/18 at 23:00 Lorazepam (Ativan) 1 mg [id number] PRN IV SEIZURES Last administered on 12/29/18 20:59; Admin Dose 1 MG; Start 12/25/18 at 23:00 Acetaminophen (Tylenol Liquid) 650 mg Q4H PRN NGT MILD PAIN(1-3)OR ELEVATED TEMP Last administered on 12/28/18 15:38; Admin Dose 650 MG; Start 12/26/18 at 05:00 Piperacillin Sod/ Tazobactam Sod 100 ml @ 200 mls/hr Q6 IVPB Last administered on 01/02/19 05:06; Admin Dose 200 MLS/HR; Start 12/26/18 at 06:00 Hydralazine HCl (Apresoline) 10 mg Q6H PRN IV SBP> 140 Last administered on 01/02/19 04:59; Admin Dose 10 MG; Start 12/27/18 at 15:30 Hydralazine HCl (Apresoline) 25 mg Q8H NGT Last administered on 01/02/19 07:22; Admin Dose 25 MG; Start 12/28/18 at 16:00 Eye Lubricant (Artificial Tears Oph) 2 drop QID BOTH EYES Last administered on 01/02/19 08:24; Admin Dose 2 DROP; Start 12/29/18 at 13:00 Eye Lubricant (Artificial Tears Oph) 2 drop Q6H PRN BOTH EYES DRY EYES; Start 12/29/18 at 10:00 Nifedipine (Procardia Xl) 30 mg BID PO Last administered on 01/02/19 08:23; Admin Dose 30 MG; Start 12/29/18 at 21:00 Polyethylene Glycol (Miralax) 17 gm DAILY NGT Last administered on 01/02/19 08:24; Admin Dose 17 GM; Start 12/29/18 at 18:00 Hydrochlorothiazide (Hydrochlorothiazide) 25 mg DAILY@0600 NGT Last administered on 01/02/19at 05:06; Admin Dose 25 MG; Start 01/01/19 at 06:00 Lansoprazole (Prevacid) 30 mg DAILY@06 NGT Last administered on 01/02/19at 05:05; Admin Dose 30 MG; Start 01/01/19 at 06:00 Metoprolol Tartrate (Lopressor) 50 mg BID NGT Last administered on 01/02/19at 08:23; Admin Dose 50 MG; Start 12/31/18 at 21:00 VTE Prophylaxis Risk score (from Ns)>0 risk: 12 [place] [facility] [place] Lines/Catheters IV Catheter Type: Chaidez in Place: No Assessment/Plan Hospital Course Subjective Patient's family got second opinion from another neurosurgeon yesterday, plan per nursing is possible compassionate terminal extubation today with comfort care measures Objective Physical exam General: Patient is laying in bed, intubated Mentation: Patient is not alert or oriented Head: Normocephalic surgical site, sutured Eyes: Pinpoint pupils Neck: Supple, nontender, midline Respiratory: Clear to auscultation bilaterally Cardiovascular: regular rate, no obvious murmurs Gastrointestinal: non-tender to palpation, bowel sounds heard. Neurological: No movement upper extremity, lower extremity response to noxious stimuli Skin: No new skin lesions 63-year-old male with a past medical history of high blood pressure and chronic tobacco use only who presented to the emergency room with sudden onset of severe headache and collapse in the emergency room was found to have large right cerebellar hemorrhage extending into the ventricles and was emergently rushed to the operating room for suboccipital craniectomy for evacuation of hematoma with right frontal ventriculostomy. He has been managed postoperati vely in the ICU as follows: 1. Acute encephalopathy secondary to #2 -patient remains obtunded and has eyes open but no real neurologic response -Patient has poor long-term overall prognosis, family updated by 2nd neurosurgeon, Dr. Pedroza, continue current management 2. 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 -MRI continues to show residual right cerebellar hematoma and moderate bilateral hydrocephalus. -drain removed -per neurology, Keppra not indicated, dc? -may need shunt per nsg but will not change skilled nursing prognosis per notes, defer decision to neurosurgery and family 3. 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 Acute respiratory failure secondary to the above -patient remains ventilator dependent 5. Chronic hypertension: -cardene weaning in process, good control, BP goal Systolic 130mmhg or less 6. Systemic inflammatory response syndrome rule out impending sepsis secondary to the above -continue abx for now, repeat cultures, 7. Neurogenic dysphagia on NG tube feedings Disposition -Patient's to come in today and will let nursing know if if decided on comfort measures. -More than 40 minutes of critical care time was spent on this encounter NANI STEVENSON Jan 02, 2019 09:46
[2019-01-02] MEDS ORDERED: ARTIFICIAL TEARS 15 ML OPH BOTH EYES PRN (10:00)
[2019-01-02] MEDS ORDERED: DIMETHICONE STICK TOP PRN (10:00)
--- NOTE | 2019-01-02 10:04 | CONS ---
Assessment/Plan Assessment/Plan Assessment/Plan (Daily) Family members at the bedside and would like to proceed with comfort measures at this time. Have spoke to patient's primary care nurse who agrees with course of treatment we will proceed with comfort measures and terminal extubation today. Consultation Date/Type/Reason Admit Date/Time Dec 22, 2018 at 23:55 Date/Time of Note DATE: 01/02/19 TIME: 10:02 Past Medical History Home Meds Reported Medications Metoprolol Tartrate* (Lopressor*) 50 Mg Tab, 50 MG PO BID, #60 TAB 12/23/18 Aspirin* (Aspirin* Chew) 81 Mg Tab.chew, 81 MG PO DAILY, TAB.CHEW 12/23/18 Atorvastatin* (Atorvastatin*) 80 Mg Tablet, 80 MG PO QHS, #30 TAB 12/23/18 Donepezil* (Donepezil*) 5 Mg Tablet, 5 MG PO DAILY, #30 TAB 12/23/18 Medications Current Medications Labetalol HCl (Labetalol) 20 mg Q20M PRN IV ELEVATED BLOOD PRESSURE Last administered on 12/22/18at 17:44; Admin Dose 20 MG; Start 12/22/18 at 17:30 Ondansetron HCl (Zofran Inj) 4 mg Q6H PRN IV NAUSEA AND/OR VOMITING Last administered on 12/23/18at 05:15; Admin Dose 4 MG; Start 12/22/18 at 23:00 Albuterol (Ventolin Hfa) 4 puff Q2H RESP THERAPY PRN INH SHORTNESS OF BREATH; Start 12/22/18 at 23:00 Ipratropium [place] (Atrovent Hfa) 4 puff Q2H RESP THERAPY PRN INH SHORTNESS OF BREATH; Start 12/22/18 at 23:00 Acetaminophen (Tylenol Supp) 650 mg Q4H PRN [place] PAIN LEVEL 1-3 OR FEVER Last administered on 12/24/18at 20:34; Admin Dose 650 MG; Start 12/22/18 at 23:00 Propofol 100 ml @ 2.387 mls/ hr PER PROTOCOL IV ; Start 12/22/18 at 23:00 Diphenhydramine HCl (Benadryl) 25 mg Q6H PRN IV ITCHING; Start 12/23/18 at 00:00 Morphine Sulfate (morphine) 2 mg Q2H PRN IV SEVERE PAIN LEVEL 7-10 Last administered on 12/23/18 13:26; Admin Dose 2 MG; Start 12/23/18 at 09:30 Nicardipine HCl 50 mg/Sodium Chloride 500 ml @ 50 mls/hr TITRATE IV Last administered on 01/01/19 11:24; Admin Dose 50 MLS/HR; Start 12/25/18 at 20:00 Levetiracetam 100 ml @ 400 mls/hr Q12 IVPB Last administered on 01/02/19 08:23; Admin Dose 400 MLS/HR; Start 12/25/18 at 23:00 Lorazepam (Ativan) 1 mg [id number] PRN IV SEIZURES Last administered on 12/29/18 20:59; Admin Dose 1 MG; Start 12/25/18 at 23:00 Acetaminophen (Tylenol Liquid) 650 mg Q4H PRN NGT MILD PAIN(1-3)OR ELEVATED TEMP Last administered on 12/28/18 15:38; Admin Dose 650 MG; Start 12/26/18 at 05:00 Piperacillin Sod/ Tazobactam Sod 100 ml @ 200 mls/hr Q6 IVPB Last administered on 01/02/19 05:06; Admin Dose 200 MLS/HR; Start 12/26/18 at 06:00 Hydralazine HCl (Apresoline) 10 mg Q6H PRN IV SBP> 140 Last administered on 01/02/19 04:59; Admin Dose 10 MG; Start 12/27/18 at 15:30 Hydralazine HCl (Apresoline) 25 mg Q8H NGT Last administered on 01/02/19 07:22; Admin Dose 25 MG; Start 12/28/18 at 16:00 Eye Lubricant (Artificial Tears Oph) 2 drop QID BOTH EYES Last administered on 01/02/19 08:24; Admin Dose 2 DROP; Start 12/29/18 at 13:00 Eye Lubricant (Artificial Tears Oph) 2 drop Q6H PRN BOTH EYES DRY EYES; Start 12/29/18 at 10:00 Nifedipine (Procardia Xl) 30 mg BID PO Last administered on 01/02/19 08:23; A dmin Dose 30 MG; Start 12/29/18 at 21:00 Polyethylene Glycol (Miralax) 17 gm DAILY NGT Last administered on 01/02/19at 08:24; Admin Dose 17 GM; Start 12/29/18 at 18:00 Hydrochlorothiazide (Hydrochlorothiazide) 25 mg DAILY@0600 NGT Last administered on 01/02/19at 05:06; Admin Dose 25 MG; Start 01/01/19 at 06:00 Lansoprazole (Prevacid) 30 mg DAILY@06 NGT Last administered on 01/02/19at 05:05; Admin Dose 30 MG; Start 01/01/19 at 06:00 Metoprolol Tartrate (Lopressor) 50 mg BID NGT Last administered on 01/02/19at 08:23; Admin Dose 50 MG; Start 12/31/18 at 21:00 Allergies: Coded Allergies: Unknown: Unable to obtain (Unverified , 12/22/18) Social History Smoking Status: Current every day smoker Exam/Review of Systems Exam Vitals Vital Signs Date Temp Pulse Resp B/P (MAP) Pulse Ox O2 O2 Flow FiO2 Time Delivery Rate 01/02/19 79 23 104/73 100 08:45 (83) 01/02/19 30 08:00 01/02/19 99.2 Mechanical 08:00 Ventilator Intake and Output 01/01/19 01/01/19 01/02/19 1515:00 23:00 07:00 IntakeIntake Total 1475 ml 700 ml 1110 ml OutputOutput Total 705 ml 790 ml 900 ml BalanceBalance 770 ml -90 ml 210 ml Results Result Diagram: 01/02/19 0450 01/02/19 0450 Results 24hrs Laboratory Tests Test 01/02/19 04:50 White Blood Count 10.1 Red Blood Count 3.92 L Hemoglobin 10.0 L Hematocrit 31.6 L Mean Corpuscular Volume 80.6 L Mean Corpuscular Hemoglobin 25.5 L Mean Corpuscular Hemoglobin Concent 31.6 L Red Cell Distribution Width 15.8 H Platelet Count 309 Mean Platelet Volume 11.0 H Immature Granulocytes % 0.500 H Neutrophils % 84.1 H Lymphocytes % 9.1 L Monocytes % 5.8 Eosinophils % 0.3 Basophils % 0.2 Nucleated Red Blood Cells % 0.0 Immature Granulocytes # 0.050 H Neutrophils # 8.5 H Lymphocytes # 0.9 Monocytes # 0.6 Eosinophils # 0.0 Basophils # 0.0 Nucleated Red Blood Cells # 0.0 Sodium Level 139 Potassium Level 3.6 Chloride Level 107 Carbon Dioxide Level 26 Anion Gap 6 Blood Urea Nitrogen 26 H Creatinine 0.76 Est Glomerular Filtrat Rate mL/min > 60 Glucose Level 136 Calcium Level 8.8 Medications Medication Current Medications Labetalol HCl (Labetalol) 20 mg Q20M PRN IV ELEVATED BLOOD PRESSURE Last administered on 12/22/18 17:44; Admin Dose 20 MG; Start 12/22/18 at 17:30 Ondansetron HCl (Zofran Inj) 4 mg Q6H PRN IV NAUSEA AND/OR VOMITING Last administered on 12/23/18 05:15; Admin Dose 4 MG; Start 12/22/18 at 23:00 Albuterol (Ventolin Hfa) 4 puff Q2H RESP THERAPY PRN INH SHORTNESS OF BREATH; Start 12/22/18 at 23:00 Ipratropium [place] (Atrovent Hfa) 4 puff Q2H RESP THERAPY PRN INH SHORTNESS OF BREATH; Start 12/22/18 at 23:00 Acetaminophen (Tylenol Supp) 650 mg Q4H PRN [place] PAIN LEVEL 1-3 OR FEVER Last administered on 12/24/18 20:34; Admin Dose 650 MG; Start 12/22/18 at 23:00 Propofol 100 ml @ 2.387 mls/ hr PER PROTOCOL IV ; Start 12/22/18 at 23:00 Diphenhydramine HCl (Benadryl) 25 mg Q6H PRN IV ITCHING; Start 12/23/18 at 00:00 Morphine Sulfate (morphine) 2 mg Q2H PRN IV SEVERE PAIN LEVEL 7-10 Last administered on 12/23/18 13:26; Admin Dose 2 MG; Start 12/23/18 at 09:30 Nicardipine HCl 50 mg/Sodium Chloride 500 ml @ 50 mls/hr TITRATE IV Last ad ministered on 01/01/19 11:24; Admin Dose 50 MLS/HR; Start 12/25/18 at 20:00 Levetiracetam 100 ml @ 400 mls/hr Q12 IVPB Last administered on 01/02/19 08:23; Admin Dose 400 MLS/HR; Start 12/25/18 at 23:00 Lorazepam (Ativan) 1 mg [id number] PRN IV SEIZURES Last administered on 12/29/18 20:59; Admin Dose 1 MG; Start 12/25/18 at 23:00 Acetaminophen (Tylenol Liquid) 650 mg Q4H PRN NGT MILD PAIN(1-3)OR ELEVATED TEMP Last administered on 12/28/18 15:38; Admin Dose 650 MG; Start 12/26/18 at 05:00 Piperacillin Sod/ Tazobactam Sod 100 ml @ 200 mls/hr Q6 IVPB Last administered on 01/02/19 05:06; Admin Dose 200 MLS/HR; Start 12/26/18 at 06:00 Hydralazine HCl (Apresoline) 10 mg Q6H PRN IV SBP> 140 Last administered on 01/02/19 04:59; Admin Dose 10 MG; Start 12/27/18 at 15:30 Hydralazine HCl (Apresoline) 25 mg Q8H NGT Last administered on 01/02/19 07:22; Admin Dose 25 MG; Start 12/28/18 at 16:00 Eye Lubricant (Artificial Tears Oph) 2 drop QID BOTH EYES Last administered on 01/02/19 08:24; Admin Dose 2 DROP; Start 12/29/18 at 13:00 Eye Lubricant (Artificial Tears Oph) 2 drop Q6H PRN BOTH EYES DRY EYES; Start 12/29/18 at 10:00 Nifedipine (Procardia Xl) 30 mg BID PO Last administered on 01/02/19 08:23; Admin Dose 30 MG; Start 12/29/18 at 21:00 Polyethylene Glycol (Miralax) 17 gm DAILY NGT Last administered on 01/02/19 08:24; Admin Dose 17 GM; Start 12/29/18 at 18:00 Hydrochlorothiazide (Hydrochlorothiazide) 25 mg DAILY@0600 NGT Last administered on 01/02/19 05:06; Admin Dose 25 MG; Start 01/01/19 at 06:00 Lansoprazole (Prevacid) 30 mg DAILY@06 NGT Last administered on 01/02/19 05:05; Admin Dose 30 MG; Start 01/01/19 at 06:00 Metoprolol Tartrate (Lopressor) 50 mg BID NGT Last administered on 01/02/19 08:23; Admin Dose 50 MG; Start 12/31/18 at 21:00 ANGELES MILLER Jan 02, 2019 10:04
[2019-01-02] MEDS ORDERED: LORAZEPAM (MDV) 100 MG in DEXTROSE 5% 50 ML IV SCH (10:30)
[2019-01-02] MEDS ORDERED: morphine (DRIP) 100 MG/100 ML 100 ML IV SCH ×2 (10:30→11:00)
--- NOTE | 2019-01-02 13:49 | DES ---
Date/Time of Note Date/Time of Note DATE: 01/02/19 TIME: 13:48 Discharge/ Summary Admission/Discharge Info Admit Date/Time Dec 22, 2018 at 23:55 Final Diagnosis Cardiopulmonary arrest Bradycardia Right cerebellar hemorrhage, status post right occipital craniectomy and cranioplasty with placement of right frontal ventriculostomy drain Acute encephalopathy Acute respiratory failure Hypertension SIRS Neurogenic dysphasia Preliminary Cause of Cardiopulmonary arrest Bradycardia Right cerebellar hemorrhage, status post right occipital craniectomy and cranioplasty with placement of right frontal ventriculostomy drain Acute encephalopathy Acute respiratory failure Hypertension SIRS Neurogenic dysphasia Hospital Course summary Patient is a male with a past medical history significant for hypertension and chronic tobacco use who originally presented with sudden headache and collapse and found to have large right cerebellar hemorrhage extending into the ventricles. Patient underwent right occipital craniectomy and cranioplasty per neurosurgery emergently for placement of ventricular drain. Patient had an extended stay in the intensive care unit with family consulting with the neurosurgeon as well as the harness preparer. After some time and after a second neurosurgeon opinion, patient decided for comfort measures and for compassionate extubation. Patient was pronounced at 1341 on January 02, 2019. diagnosis Cardiopulmonary arrest Bradycardia Right cerebellar hemorrhage, status post right occipital craniectomy and cranioplasty with placement of right frontal ventriculostomy drain Acute encephalopathy Acute respiratory failure Hypertension SIRS Neurogenic dysphasia Pending Labs/Cultures Laboratory Tests Test 01/02/19 04:50 White Blood Count 10.1 10^3/ul (4.8-10.8) Red Blood Count 3.92 10^6/ul (4.70-6.10) Hemoglobin 10.0 g/dl (14.0-18.0) Hematocrit 31.6 % (42.0-52.0) Mean Corpuscular Volume 80.6 fl (82.0-101.0) Mean Corpuscular Hemoglobin 25.5 pg (29.0-33.0) Mean Corpuscular Hemoglobin Concent 31.6 g/dl (32.0-37.0) Red Cell Distribution Width 15.8 % (11.5-14.5) Platelet Count 309 10^3/UL (140-415) Mean Platelet Volume 11.0 fl (7.4-10.4) Immature Granulocytes % 0.500 % (0.001-0.429) Neutrophils % 84.1 % (39.0-77.0) Lymphocytes % 9.1 % (15.0-51.0) Monocytes % 5.8 % (0.0-11.0) Eosinophils % 0.3 % (0.0-7.0) Basophils % 0.2 % (0.0-2.0) Nucleated Red Blood Cells % 0.0 /100WBC (0.0-0.0) Immature Granulocytes # 0.050 10^3/ul (0.0-0.031) Neutrophils # 8.5 10^3/ul (1.6-7.5) Lymphocytes # 0.9 10^3/ul (0.8-2.9) Monocytes # 0.6 10^3/ul (0.3-0.9) Eosinophils # 0.0 10^3/ul (0.0-0.5) Basophils # 0.0 10^3/ul (0.0-0.1) Nucleated Red Blood Cells # 0.0 10^3/ul (0.0-0.0) Sodium Level 139 mmol/L (135-144) Potassium Level 3.6 mmol/L (3.5-5.1) Chloride Level 107 mmol/L (97-110) Carbon Dioxide Level 26 mmol/L (21-31) Anion Gap 6 (5-13) Blood Urea Nitrogen 26 mg/dl (7-20) Creatinine 0.76 mg/dl (0.61-1.24) Est Glomerular Filtrat Rate mL/min > 60 mL/min (>60) Glucose Level 136 mg/dl (70-220) Calcium Level 8.8 mg/dl (8.4-10.2) NANI STEVENSON Jan 02, 2019 13:49
== END 2019-01-02 13:41 | disposition expired | DRG 23 ==
LOC: E/R 17:14 → SUR 19:26 → SDS 19:26 → SUR 19:27 → SDS 19:27 → CANBEDREQ 19:53 → ICU 23:55 → UNDOADMIN 23:55 → SUR 23:55
PROVIDERS: ADMIT Specialist; ATTEND Internal Medicine
PROC: 0BH17EZ Insertion of Endotracheal Airway into Trachea, Via Natural or Artificial Opening (ICD-10-PCS; 2018-12-22)
PROC: 5A1955Z Respiratory Ventilation, Greater than 96 Consecutive Hours (ICD-10-PCS; 2018-12-22)
PROC: 00N00ZZ Release Brain, Open Approach (ICD-10-PCS; principal; 2018-12-23)
PROC: 009600Z Drainage of Cerebral Ventricle with Drainage Device, Open Approach (ICD-10-PCS; 2018-12-23)
DX: I61.4 Nontraumatic intracerebral hemorrhage in cerebellum (principal); G93.5 Compression of brain; J96.00 Acute respiratory failure, unspecified whether with hypoxia or hypercapnia; G93.6 Cerebral edema; I63.9 Cerebral infarction, unspecified; I16.1 Hypertensive emergency; G91.8 Other hydrocephalus; Z99.11 Dependence on respirator [ventilator] status; G93.40 Encephalopathy, unspecified; E87.0 Hyperosmolality and hypernatremia; R65.10 Systemic inflammatory response syndrome (SIRS) of non-infectious origin without acute organ dysfunction; R47.02 Dysphasia; Z95.1 Presence of aortocoronary bypass graft; Z79.82 Long term (current) use of aspirin; Z72.0 Tobacco use; I46.9 Cardiac arrest, cause unspecified; I10 Essential (primary) hypertension; R40.20 Unspecified coma; D64.9 Anemia, unspecified; D69.6 Thrombocytopenia, unspecified; Z66 Do not resuscitate; R56.9 Unspecified convulsions
CPT/HCPCS: 31500; 36415; 36600; 70450; 70496; 70498; 70551; 71045; 80048; 80053; 80061; 80202; 80307; 81001; 82550; 82553; 82803; 82962; 83036; 83735; 83880; 84100; 84484; 85025; 85576; 85610; 85730; 86850; 86900; 86901; 87070; 87081; 87086; 88304; 89220; 93005; 93306; 94002; 94003; 94770; 95819; 96374; 96375; C1713; C1781; C9113; J0360; J0690; J1953; J2060; J2270; J2405; J2543; J2765; J3010; J3370; J3480; J7030; J7040; J7050; Q9967